=== PATIENT | male | born 1990 | race Caucasian/White ===

== ENCOUNTER → 2017-11-12 09:47 | Outpatient (CLI) | payer BC, MEDICAID, SELFPAY ==
--- NOTE | 2017-11-12 09:50 | US_ITS ---
STUDY: ABDOMINAL ULTRASOUND - RIGHT UPPER QUADRANT REASON FOR VISIT: Male, 27 years old. Right upper quadrant pain. TECHNIQUE: Ultrasound evaluation of the right upper quadrant was performed with real-time and static kim-scale imaging. TECHNICAL QUALITY: Adequate. COMPARISON: None. FINDINGS: Liver: The liver measures 11.4 cm. There is normal echogenicity of the liver. The bile ducts are within normal limits. There is hepatic color flow. The direction of portal flow is hepatopetal. There is no demonstrated mass lesion. Gallbladder: Normal distended gallbladder. The gallbladder wall measures 1.0 mm. There is a negative sonographic Yen's sign. There is no pericholecystic fluid. There are no gallstones. Common Bile Duct (C.B.D.): The common bile duct measures 2.0 mm. Pancreas: Normal size of the head, body and tail of the pancreas. There is normal echogenicity of the pancreas. There is no demonstrated pancreatic mass or cyst. Right Kidney: Normal size of the right kidney. The right kidney measures 10.4 cm x 5.0 cm x 3.9 cm. Normal renal cortex. The right cortex measures 1.2 cm. There is no demonstrated renal mass or cyst. There is no right hydronephrosis. US/Gallbladder IMPRESSION: Normal right upper quadrant ultrasound examination. Electronically Signed: Harrison Flowers MD at 14:43 EDT Tel [phone], Service support ,
== END ==
LOC: US 09:49
PROVIDERS: Family Provider Family Medicine; PCP Family Medicine; Visit Provider Surgery
DX: R10.11 Right upper quadrant pain (principal)
CPT/HCPCS: 76705

== ENCOUNTER 2018-05-15 09:12 | Day surgery (SDC) | payer BC, SELFPAY ==
--- NOTE | 2018-05-15 | GASB_PTH ---
PATIENT: RIVKA ESPINAL LOC: EN U#:[id number] AGE/SX: 27/M ROOM: RE05/15/[address]: Dr. Tanner Curry MD : 1990 BED: DIS: 05/15/2018 SPEC #: [id number] RECD: 05/15/18 12:44 STATUS: SO LAUREN #: [id number] JEANETH: 05/15/18 00:[address]: Tanner Curry DEPT: SURGICAL PATHOLOGY RECD BY: Tu Damico ENTERED: 05/15/18 12:44 SP TYPE: Gastric Bx OTHR DR: Dr. Oskar Barajas MD Tissues: Gastric mucous membrane Procedures: Surgery Specimen Level IV HEADER OPERATION: EGD ([facility] [place]) PRE-OP DIAGNOSIS: Abdominal pain TISSUE SUBMITTED: Antral biopsy for H. pylori and pathology MICROSCOPIC DIAGNOSIS Gastric antrum, biopsy: Chronic gastritis. AM:margo 05/18/18 COMMENT The results of immunohistochemistry for Helicobacter pylori will be reported separately ([id number]). MICROSCOPIC DESCRIPTION Slides are reviewed. GROSS DESCRIPTION Received in fixative is one container labeled with the patient's name and designated antral biopsy. The specimen consists of one irregular fragment of light stanley soft tissue that measures 0.5 x 0.3 x 0.1 cm. The specimen is totally submitted in one cassette. / AM:margo 05/15/18 TC:3 CPT: 64189
[2018-05-15 09:29] VITALS: BP 119/68; PULSE 92; RESP 18; TEMP 36.9; O2SAT 100; BMI 19.6
--- NOTE | 2018-05-15 10:30 | IMM_PTH ---
PATIENT: RIVKA ESPINAL LOC: EN U#:[id number] AGE/SX: 27/M ROOM: RE05/15/[address]: Dr. Tanner Curry MD : 1990 BED: DIS: 05/15/2018 SPEC #: [id number] RECD: 05/15/18 11:16 STATUS: SO RERashel #: [id number] JEANETH: 05/15/18 10:[address]: Tanner Curry DEPT: IMMUNOHISTOCHEMISTRY RECD BY: Kera Hernandes ENTERED: 05/15/18 11:16 SP TYPE: IMMUNO OTHR DR: Dr. Oskar Barajas MD Tissues: Stomach, NOS Procedures: H Pylori (initial) PHYSICIAN & INSTITUTION [place] [id number] SPECIMEN INFORMATION: Tissue Source: Antral biopsy Clinical Info: Abdominal pain Specimen Number: [id number] CPT code: 88928 METHODOLOGY: Deparaffinized sections of prefer/formalin-fixed tissue or PAP/DQ stained slides are incubated with monoclonal/polyclonal antibodies/oligonucleotide probes. Localization is made via biotin free immunoperoxidase method. Appropriate controls are performed and reacted as expected. Results on target cell population are indicated in the following table: RESULTS: ANTIBODY / CLONE RESULT H Pylori (polyclonal) negative These tests were developed and their performance characteristics determined by [facility]. They may not have been cleared or approved by the U.S. Food and Drug Administration. The FDA has determined that such clearance or approval is not necessary. INTERPRETATION: Antral biopsy: Negative for Helicobacter pylori organisms. AM:margo 05/18/18
[2018-05-15 10:33] VITALS: BP 110/70; BP 119/68; PULSE 91; RESP 18; TEMP 37.2; O2SAT 98
--- NOTE | 2018-05-15 10:36 | OP.ENDO_ITS ---
Patient Name: Woody Farris Procedure Date: 05/15/2018 10:19 AM Date of : 1990 Age: 27 Procedure: Upper GI endoscopy Indications: Epigastric abdominal pain, Heartburn Providers: Tanner Curry MD Medicines: Monitored Anesthesia Care Patient Profile: This is a 27 year old male. Refer to note in patient chart for documentation of history and physical. Complications: No immediate complications. Procedure: Pre-Anesthesia Assessment: - Prior to the procedure, a History and Physical was performed, and patient medications and allergies were reviewed. The patient's tolerance of previous anesthesia was also reviewed. The risks and benefits of the procedure and the sedation options and risks were discussed with the patient. All questions were answered, and informed consent was obtained. Prior Anticoagulants: The patient has taken no previous anticoagulant or antiplatelet agents. After reviewing the risks and benefits, the patient was deemed in satisfactory condition to undergo the procedure. After obtaining informed consent, the endoscope was passed under direct vision. Throughout the procedure, the patient's blood pressure, pulse, and oxygen saturations were monitored continuously. The gastroscope was introduced through the mouth, and advanced to the second part of duodenum. The upper GI endoscopy was accomplished without difficulty. The patient tolerated the procedure well. Scope In: 10:24:34 AM Scope Out: 10:29:19 AM Total Procedure Duration Time 0 hours 4 minutes 45 seconds Findings: Diffuse erythematous mucosa without bleeding was found in the stomach. Biopsies were taken with a cold forceps for Helicobacter pylori testing. The esophagus was normal. The examined duodenum was normal. The exam was otherwise without abnormality. Impression: - Erythematous mucosa in the stomach. Biopsied. - Normal esophagus. - Normal examined duodenum. - The examination was otherwise normal. Recommendation: - Await pathology results. - Discharge patient to home. - Resume previous diet. - Continue present medications. - Return to my office in 1 month. Procedure Code(s): --- Professional --- 74308, Esophagogastroduodenoscopy, flexible, transoral; with biopsy, single or multiple Diagnosis Code(s): --- Professional --- K31.89, Other diseases of stomach and duodenum R10.13, Epigastric pain R12, Heartburn CPT copyright 2017 [employer]. All rights reserved. The codes documented in this report are preliminary and upon retrieval specialist review may be revised to meet current compliance requirements. Tanner Curry MD 05/15/2018 10:35:56 AM This report has been signed electronically. Number of Addenda: 0 Note Initiated On: 05/15/2018 10:19 AM
[2018-05-15 10:38] VITALS: BP 113/65; BP 119/68; PULSE 92; RESP 16; O2SAT 100
[2018-05-15 10:43] VITALS: BP 119/68; BP 120/76; PULSE 90; RESP 16; O2SAT 100
[2018-05-15 10:48] VITALS: BP 119/68; BP 123/70; PULSE 99; RESP 16; TEMP 36.8; O2SAT 100
[2018-05-15 11:17] VITALS: BP 119/68
== END 2018-05-15 11:18 | disposition home or self-care (01) ==
LOC: EN 09:13 → AC 09:20
PROVIDERS: Family Provider Family Medicine; PCP Family Medicine; Referring Provider Surgery; Visit Provider Surgery
PROC: 0DJ08ZZ Inspection of Upper Intestinal Tract, Via Natural or Artificial Opening Endoscopic (ICD-10-PCS; CPT 43235; principal; 2018-05-15 10:25)
DX: K29.50 Unspecified chronic gastritis without bleeding (principal); K92.1 Melena; K21.9 Gastro-esophageal reflux disease without esophagitis; F31.9 Bipolar disorder, unspecified; F98.8 Other specified behavioral and emotional disorders with onset usually occurring in childhood and adolescence; G40.909 Epilepsy, unspecified, not intractable, without status epilepticus; Z79.899 Other long term (current) drug therapy; F17.200 Nicotine dependence, unspecified, uncomplicated
CPT/HCPCS: 43239; 88305; 88342; J7120

== ENCOUNTER → 2018-06-11 17:05 | Outpatient (CLI) | payer BC, SELFPAY ==
[2018-05-15 09:29] VITALS: BMI 19.6
[2018-06-11 17:30] LABS: Amphetamine Urine VISTA POSITIVE (<1000 ng/mL); Barbiturate Urine VISTA NEGATIVE (< 200 ng/mL); Benzodiazepine Urine VISTA NEGATIVE (< 200 ng/mL); Cocaine Urine VISTA NEGATIVE (< 300 ng/mL); Ecstacy Urine VISTA NEGATIVE (< 500 ng/mL); Methadone Urine VISTA NEGATIVE (< 300 ng/mL); PCP Urine VISTA NEGATIVE (< 25 ng/mL); THC Urine VISTA NEGATIVE (< 50 ng/mL); Vista UDS pH Range 6
== END ==
PROVIDERS: Family Provider Family Medicine; PCP Family Medicine; Referring Provider Psychiatry & Neurology Psychiatry; Visit Provider Psychiatry & Neurology Psychiatry
DX: Z79.899 Other long term (current) drug therapy (principal); F19.10 Other psychoactive substance abuse, uncomplicated
CPT/HCPCS: 80307

== ENCOUNTER → 2018-10-26 | Outpatient (CLI) | payer BC, SELFPAY | END | disposition home or self-care (01) | PROVIDERS: Family Provider Family Medicine; PCP Family Medicine; Referring Provider Otolaryngology; Visit Provider Otolaryngology | DX: J02.9 Acute pharyngitis, unspecified (principal); J03.90 Acute tonsillitis, unspecified | CPT/HCPCS: 87070 ==

== ENCOUNTER 2019-01-25 09:00 | Outpatient (RCR) | payer BC, SELFPAY ==
--- NOTE | 2019-01-25 10:07 | BH.SGPN.GN ---
Behaviors/Verbalizations/Mental Status: []Client alert and oriented, neatly dressed and groomed. Eye contact good. Motor activity appropriate. Speech within normal limits. Affect congruent, mood anxious. Thoughts linear, logical, no signs of hallucinations or delusions. Client Response/Progress/Benefit: []Client active participant during group discussion AEB client contributing to discussion. Client commented on the quote and shared ?we expect our supports to know what we need and how we feel and then get upset when they don?t.? Client reported he has lost supports in his life, but stated it is also possible to build back support. Client helped group brainstorm potential consequences of not having a support system. Group identified benefits of social support as building trust, less anxiety, less loneliness, different perspective, sense of purpose, resources, hope, and accountability. Client shared ?support goes two ways? and that it can be just as beneficial to be someone else?s support. Client was engaged during the group activity and was providing positive encouragement. Appeared to benefit from gaining awareness of barriers that keep people from seeking social support as well as identifying the benefits of increasing support. Client?s first day in IOP. Will continue tx to prevent decompensation of mood symptoms, increase healthy coping skills, and maintain safety.
--- NOTE | 2019-01-25 11:08 | BH.SGPN.GN ---
Behaviors/Verbalizations/Mental Status: [Pt alert and oriented, eye contact good, at times intense, casually dressed, motor activity appropriate, speech normal rate and tone, mood euthymic, congruent affect, thoughts linear and intact, no evidence of delusions or hallucinations.] Client Response/Progress/Benefit: [Client active participant AEB client contributing to discussion, listened attentively to others, asked questions, and took notes throughout. Client worked with the group to make connections between barriers faced in the challenge activity and strategies for managing these barriers with utilizing social supports in daily life. Client reflected that a personal barrier in using current supports is pushing people away out of guilt related to his own behaviors during past experiences. Client contributed to discussion about the different types of support and benefits different types of support can provide. Client worked with the group to identify strategies for improving development of new supports and better utilization of current supports. Client identified he would like to improve professional relationships by voicing his concerns, increasing willingness to ask for help, and improving professional boundaries because he would be able to increase ability to maintain balance and ability to develop new relationships as a result. Client seemed to benefit from identifying a type of support he would like to improve upon and creating actionable steps to promote follow-through. Client to continue IOP level of care to prevent decompensation, increase use of healthy supports, and improve mood management skills.] Narrative Note: []
--- NOTE | 2019-01-25 11:49 | BH.COMM ---
Communication Note - Communication with Client Communication Note: Completed intake paperwork with client today. Completed the [place] Suicide Severity Scale (CSSR-S) Lifetime Recent to assess for suicidal risk. Client denies history of any suicide attempts. Client reported he does have a history of impulsive behavior which resulted in client hurting himself several years ago. Client reported three years ago he took a kitchen knife and cut himself. Client denied any intent to kill himself at the time and report ?when I realized what I did I freaked out.? Client denies any other self-injurious behaviors. Client denies any passive wishes of or suicidal ideations in the past month. Client reported he has had suicidal thoughts in his lifetime, but not since he was 15 years-old. Per the CSSR-S client presents as a low risk for suicide, but he does report a history of impulsive behavior. Client's suicidal lethality will be continued to monitored throughout the program. Client denies access to any weapons. Client feels able to maintain safety, agreeable to call 911 or go to nearest emergency room if feels unable to maintain safety.
--- NOTE | 2019-01-26 09:02 | BH.SGPN.GN ---
Behaviors/Verbalizations/Mental Status: []Client alert and oriented, neatly dressed and groomed. Eye contact good. Motor activity appropriate. Speech within normal limits. Affect congruent, mood dysthymic, anxious. Thoughts linear, logical, no signs of hallucinations or delusions. Reviewed client?s symptom tracker, no risk for suicidal ideation, plan, or intent as of 01/26/19. Client Response/Progress/Benefit: []Client responded well to session, receptive to feedback and connecting with peers. Client reports feeling ?down but a bit better? today. Client stated his anxiety is his biggest stressor and client shared he worries about being able to manage his anxiety. Client asked the group how others coped with anxious thoughts and received various strategies to try. Client reported he also recognizes he self-sabotages and he hopes that he can learn to reduce these behaviors while in IOP. Client?s mental health wins today include getting to group early and not letting the bad weather cause client to have a ?terrible? mood this morning. Client shared it took him a long time to seek intensive mental health help, and client self-reported being thankful for finally deciding to come. Appeared to benefit from supportive feedback and ideas on coping skills. Will continue IOP tx to prevent decompensation and improve mood symptoms.
--- NOTE | 2019-01-26 10:10 | BH.SGPN.GN ---
Behaviors/Verbalizations/Mental Status: [] Eye contact is good. Motor activity is appropriate. Appearance is casual. Speech is Appropriate. Mood is anxious. Affect is congruent. Thoughts are linear and logical. No evidence of psychosis. Client Response/Progress/Benefit: [] Pt was an active participant in group activity and discussion. Provided insight on the quote of the day. Worked with peers to come up with a definition for coping which was how we deal with problems that we encounter. Group noted that coping skills can be healthy and unhealthy. Group worked together to identify unhealthy coping skills which included; substance abuse, avoiding, isolating, lashing out, self-harm, over-thinking, spending money, eating, and escaping reality through TV/games. Group began to identify ways to break the cycle of unhealthy coping skills which included; awareness, addressing issues, and learning healthy ways to cope. Pt was an active participant in his small group. Narrative Note: []
--- NOTE | 2019-01-26 11:15 | BH.SGPN.GN ---
Behaviors/Verbalizations/Mental Status: []Pt alert and oriented, eye contact good, casually dressed, motor activity appropriate, speech normal rate and tone, mood depressed, constricted affect, thoughts linear and intact, no evidence of delusions or hallucinations. Client Response/Progress/Benefit: []Client listened attentively to peers and contributed thoughts during discussion. Client appeared to connect with the activity from second group and helped the group identify benefits of having a strong foundation of internal and external coping skills. Client helped the group discuss the different categories of coping skills and provided examples. Client agreed with peers it's important to use variety of coping skills. Client created a coping skills ?menu? from the five categories of coping skills. Client selected music, thought challenge and grounding as coping skills to try. Client appeared to benefit from increasing his repertoire of healthy coping skills. Progress noted in client?s increased self-awareness of his maladaptive coping. Will continue IOP to stabilize moods, increase use of healthy coping skills and prevent decompensation. Narrative Note: []
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
--- NOTE | 2019-01-27 13:05 | BH.DR.ITP ---
Initial Treatment Plan - Patient Information Visit Information: ADMISSION DATE: EXPECTED LOS: 4-6 weeks - Problems/Symptoms Problem #1:: Anxiety Symptom:: Worry, rumination Problem #2:: Irritability/anger Symptom:: impulsive, easily angered
--- NOTE | 2019-01-28 12:25 | BH.NOTE ---
BH: Inpatient Note - Notes Behavioral Health Inpatient Note: Per written order from Dr. James, the following prescription was called into [facility] pharmacy in [place], [place]: Lamictal 150mg PO daily, #90, NO refill Eran Muller, MSN, RN
--- NOTE | 2019-01-29 09:03 | BH.SGPN.GN ---
Behaviors/Verbalizations/Mental Status: []Client alert and oriented, casually dressed and groomed. Eye contact good. Motor activity appropriate. Speech within normal limits. Affect congruent, mood anxious. Thoughts linear, logical, no signs of hallucinations or delusions. Reviewed client?s symptom tracker, no risk for suicidal ideation, plan, or intent as of 01/29/19. Client Response/Progress/Benefit: []Client responded well to session, connecting with peers and receptive to feedback. Client reported he is feeling ?half awake? today but shared ?I?m not going to let that ruin my day.? Client shared coming to group this week has given client ?all this positive energy.? Client reported this makes client want to make positive changes and has impacted his perspective on progress. Client shared he struggles at times with expecting too much from himself too quickly, but the group helped client by recommended use of self-compassion. Client shared he was able to prevent himself from getting mad at his which was another mental health win this morning. Appeared to benefit from connecting with peers and normalizing his mental health symptoms. Will continue IOP tx to prevent decompensation of symptoms and improve mood stability.
--- NOTE | 2019-01-29 10:17 | BH.SGPN.GN ---
Behaviors/Verbalizations/Mental Status: []Client alert and oriented, casually dressed and groomed. Eye contact fair. Motor activity appropriate. Speech within normal limits. Affect congruent to topic being discussed, mood dysthymic. Thoughts linear, logical, no signs of hallucinations or delusions. Client Response/Progress/Benefit: []Client responded well to session, attentive and participating in small group discussion. Group identified the benefits to setting boundaries as well as the consequences of not setting healthy boundaries. Client reported sometimes he doesn't set boundaries because he is exhausted so doesn't have the energy or motivation. Client recognizes not setting boundaries negatively impacts his mental health. Client engaged during discussion of the different types of boundaries and engaged in the self-assessment activity. Client able to recognize his own mental health suffers when he does not set boundaries. Client seemed to benefit from increased awareness how poor boundaries can negatively impact mental health. Client to continue IOP tx to continue use of healthy coping skills, prevent decompensation, and improve emotional regulation skills. Narrative Note: []
--- NOTE | 2019-01-29 11:03 | BH.MTP_ITS ---
[facility] - Patient Information Program Physician:: Dr. Mecca Ng Primary Therapist:: BRYN Oquendo - Psychiatric Diagnoses Psychiatric Diagnoses:: ADHD (F 90.2), Bipolar, NOS (F31.9); generalized anxiety disorder,; history of alcohol use disorder in full remission for 3 years. Diagnosis Code(s):: F31.9 - Estimated LOS Estimated LOS (in weeks):: 6 Problem/Goal #1 - Problem/Goal #1 Stated Goal:: Client will reduce anxiety due to Generalized Anxiety Disorder through IOP services. Description of Barriers: Client reports history of trauma and difficulties in managing emotions that continues to impact client. Reports from a young age he has learned to suppress his feelings until point of crisis which often results in anger outbursts via verbal outbursts, property damage, and arguments with supports. Client reports his relationship with his has been strained as a result of poor emotion regulation and that they are currently as a result. Indicated that the recent loss of a child to SIDs has had significant impact on his mental health and relationships with supports. Pt reports he is currently living with his mother and stepfather which has been a stressor as he is unable to spend as much time with his children and is commuting further to work. Reports hx of problematic drinking behaviors but has not engaged in such behaviors since prior to IOP admission. Current stressors including; financial stress, lack of social support, family stress, hx of impulsivity, feelings of hopelessness, worthlessness, difficulties managing his emotions, and lack of concentration. Client reports limited awareness of warning signs and triggers. Client endorses numerous distorted thoughts that reinforce mental health symptoms and cause interpersonal relationship issues. Functional Impact: Client is a 28-year-old male with a history of Bipolar, NOS, anxiety, anger management problems, and alcohol use disorder. Client was referred to [facility] by family due to worsening mood symptoms resulting in erratic behaviors, impulsiveness, and increased irritability over the past month. Due to intensity of mood symptoms, pt has been ?kicked out of his house? following an argument with his on 01/17/19 and is now living with his parents. Dayna armstrong identified worsening mood symptoms in connection to ongoing grief following the loss of his son in June 2018 to SIDs. Reports hx of aime and depression, though denies any recent episodes. Reports increased reliance on alcohol as a means of coping but recognized this was beginning to become problematic and has been sober for several weeks. Client currently endorses a depressed mood, lack of energy, lack of concentration, lack of motivation, avoidance behaviors, emotional dysregulation, irritability and decreased sleep. Client's symptoms are interfering with his social, occupation, and familial functioning. Goal Relevant Strengths/Supports: Client presents as a kind, intelligent, and motivated to improve his ability to understand and manage intense emotions. Cl ient has shown ability to bounce back from adversity in the past which presents as a protective factor for treatment. Client has strong family support from his parents. Client has been in mental health treatment before and reported it was helpful but that he was not motivated to apply skills learned at the time however feels more motivated to do so now. - Objectives Objective #1 Stated Objective: Client will identify 2-3 anxiety and stress related triggers and 2 healthy coping skills to manage symptoms as shown by decreased DSM-5 cross-cutting score for anxiety. Interventions: Therapist will help client increase awareness of anxiety and stress triggers and educate client on ways stress and anxiety impact overall health. Therapist will teach client various heathy coping skills to manage triggers and prevent further escalation of symptoms. Therapist will assist client in identifying warning signs, triggers, and maladaptive coping skills. Therapist will utilize self-coaching, calming skills, and other CBT techniques to promote anxiety management. Therapist will discuss the benefit of communication and self-awareness on improving anxiety management. Discharge Criteria: Client will have accomplished this goal when can report at least 2 triggers for anxiety and state using 2 healthy strategies to manage symptoms. Additionally, client will have accomplished this goal when her DSM-5 cross-cutting scores show a decrease in anxiety. Target Date: 03/08/19 Review Date: 03/01/19 Problem/Goal #2 - Problem/Goal #2 Stated Goal:: Client will improve mood management and reduce impulsive behaviors, feelings of hopelessness, and anger outbursts due to Bipolar Disorder through Intensive Outpatient Program. Description of Barriers: Client reports history of trauma and difficulties in managing emotions that continues to impact client. Reports from a young age he has learned to suppress his feelings until point of crisis which often results in anger outbursts via verbal outbursts, property damage, and arguments with supports. Client reports his relationship with his has been strained as a result of poor emotion regulation and that they are currently as a result. Indicated that the recent loss of a child to SIDs has had significant impact on his mental health and relationships with supports. Pt reports he is currently living with his mother and stepfather which has been a stressor as he is unable to spend as much time with his children and is commuting further to work. Reports hx of problematic drinking behaviors but has not engaged in such behaviors since prior to IOP admission. Current stressors including; financial stress, lack of social support, family stress, hx of impulsivity, feelings of hopelessness, worthlessness, difficulties managing his emotions, and lack of concentration. Client reports limited awareness of warning signs and triggers. Client endorses numerous distorted thoughts that reinforce mental health symptoms and cause interpersonal relationship issues. Functional Impact: Client is a 28-year-old male with a history of Bipolar, NOS, anxiety, anger management problems, and alcohol use disorder. Client was referred to [facility] by family due to worsening mood symptoms resulting in erratic behaviors, impulsiveness, and increased irritability over the past month. Due to intensity of mood symptoms, pt has been ?kicked out of his house? following an argument with his on 01/17/19 and is now living with his parents. Additionally identified worsening mood symptoms in connection to ongoing grief following the loss of his son in June 2018 to SIDs. Reports hx of aime and depression, though denies any recent episodes. Reports increased reliance on alcohol as a means of coping but recognized this was beginning to become problematic and has been sober for several weeks. Client currently endorses a depressed mood, lack of energy, lack of concentration, lack of motivation, avoidance behaviors, emotional dysregulation, irritability and decreased sleep. Client's symptoms are interfering with his social, occupation, and familial functioning. Goal Relevant Strengths/Supports: Client presents as a kind, intelligent, and motivated to improve his ability to understand and manage intense emotions. Client has shown ability to bounce back from adversity in the past which presents as a protective factor for treatment. Client has strong family support from his parents. Client has been in mental health treatment before and reported it was helpful but that he was not motivated to apply skills learned at the time however feels more motivated to do so now. - Objectives Objective #1 Stated Objective: Client will identify his specific physical and emotional warning signs and triggers for anger and learn at least 2-3 healthy ways to calm and manage anger, as shown by reduced DSM-5 scores. Interventions: Therapist will provide sychoeducation on anger via worksheets, educational videos, and individual sessions to increase pt understanding of underlying factors contributing to anger as well as warning signs and triggers commonly associated with irritability. Through individual therapy and group work will help client explore different anger management strategies and tools for increasing self-regulation. Discharge Criteria: Pt will have reached goal when able to identify 2-3 personal warning signs, triggers, and factors impacting ability to regulate emotions and report reduced anger sx due to implementing 2-3 calming and emotion regulation skills. Progress will be shown by reduction in irritability on DSM-5 scores. Target Date: 03/08/19 Review Date: 02/22/19 Objective #2 Stated Objective: Client will learn and implement 2-3 effective communication skills during times of conflict to empower client to communicate thoughts and feelings rather than supress emotions or escalate to crisis. Interventions: Therapist will teach client effective communication and conflict resolution skills and will provide homework for client to practice communication skills outside of sessions. Discharge Criteria: Client will have achieved this objective when reports experiencing increased ability to communicate effectively with supports during times of disagreement or conflict without shutting down or escalating to point of crisis. Target Date: 03/08/19 Review Date: 02/22/19
--- NOTE | 2019-01-29 11:22 | BH.SGPN.GN ---
Behaviors/Verbalizations/Mental Status: [Client alert and oriented, casual dress, hygiene appropriate. Eye contact good. Motor activity appropriate. Speech within normal limits. Affect congruent, mood euthymic. Thoughts linear, logical, no signs of hallucinations or delusions. ] Client Response/Progress/Benefit: [Pt responded well to session, active participant and willing to provide insight throughout. Pt did well to engage in the boundary self-assessment activity and worked with group to further process. Pt discussed that he has been becoming much more aware of how fear of being out of control and focusing on past guilt has impacted personal ability to set boundaries in the workplace. Pt appeared to benefit from group discussion on strategies for further improving personal boundaries. Identified wanting to improve his ability to set and maintain healthy emotional boundaries, specifically in regard to being able to respect others needs and ask for help rather than shut down when upset. Progress noted in pt ability to identify impact of current boundaries on mental health progress and relationships. Client recommended to continue IOP treatment in order to maintain gains made, improve mood management, and continue to promote healthy change behaviors.] Narrative Note: []
--- NOTE | 2019-02-01 09:03 | BH.SGPN.GN ---
Behaviors/Verbalizations/Mental Status: [Eye contact is good, at times appearing intense. Motor activity is appropriate. Appearance is casual. Speech is Appropriate, at times rambling. Mood is depressed and anxious. Affect is congruent. Thoughts are linear and logical. No evidence of psychosis. Reviewed daily check in sheet and no reports of suicidal ideations or intent.] Client Response/Progress/Benefit: [Pt was receptive of session, actively listening throughout and providing input and supportive feedback throughout. Emotion for today is ?anxious? and he indicated that this was due to realizing how negative he can be at times and worrying about the relationship with his as they are currently seperated. Pt appeared to benefit from the supportive feedback and fellow participants indicating relating to pt?s difficulties in communication in his relationship. Pt shared that despite current anxiety, he has been able to experience some mental health wins. Identified current wins as: getting out of the house and spending quality time with his kids at the park over the weekend. Additional win identified as making small steps towards challenging unrealistic expectations of himself and his children. Noted that he had allowed them to play at the park without trying to control the situation. Indicated this had been a positive experience and increased his overall confidence in his ability to make progress. Pt displaying progress in levels of engagement and willingness to actively practice utilizing anxiety management skills outside tx environment. Recommended continued tx to prevent decompensation, continue to increase emotion regulation, and further improve anxiety and anger management.] Narrative Note: []
--- NOTE | 2019-02-01 10:20 | BH.SGPN.GN ---
Behaviors/Verbalizations/Mental Status: [] Eye contact is good. Motor activity is appropriate. Appearance is casual. Speech is Appropriate. Mood is anxious. Affect is congruent. Thoughts are linear and logical. No evidence of psychosis Client Response/Progress/Benefit: [] Pt was an active participant in group discussion and activity. Engaged and provided insight on today's quote. Worked with group to define pitfalls in mental health which group identified were; hidden or unsuspected obstacles, emotional traps, when we defeat ourselves, and unforeseen obstacles which impact progress. Group discussed the impacts of pitfalls which can cause one to; give up, revert back to unhealthy coping, isolate, define oneself as a failure. Group briefly discussed the emotions and pitfalls which occurred during the activity noting that it caused anxiety, anger, fear, and at times they wanted to give up. Pt stated that it was hard for me to calm down and focus during the activity causing him to rely on others. Pt was able to relate the activity to his own MH and emotions when he has encounter a pitfall which was beneficial in in terms of insight and awareness. Narrative Note: []
--- NOTE | 2019-02-01 11:21 | BH.SGPN.GN ---
Behaviors/Verbalizations/Mental Status: []Client alert and oriented, casually dressed and groomed. Eye contact intense. Motor activity appropriate. Speech tangential at times. Affect congruent, mood anxious. Thoughts linear, logical, no signs of hallucinations or delusions. Client Response/Progress/Benefit: []Client receptive of session, attentive and providing positive contributions. Client helped group process the activity and how it connects to pitfalls in real life. Client completed a worksheet where he identified personal pitfalls impacting mental health progress. Identified pitfalls as: complaining instead of ?finding the silver lining,? feeling lost, avoiding, lashing out, and negative self-talk. Client recognized that in order to become less vulnerable to pitfalls it takes self-awareness and healthy coping skills. Client reported he wants to work on reminding himself that there are better times ahead to help client cope with personal pitfalls. Benefited from identifying personal pitfalls and strategies to overcome these pitfalls. Progress noted as client reports increased self-awareness, but he continues to struggle with mood instability and symptom management. Will continue IOP tx to prevent decompensation and increase healthy coping skills Narrative Note: []
--- NOTE | 2019-02-02 10:08 | BH.SGPN.GN ---
Behaviors/Verbalizations/Mental Status: []Client alert and oriented, neatly dressed and groomed. Eye contact intense. Motor activity appropriate. Speech within normal limits. Affect congruent, mood euthymic. Thoughts linear, logical, no signs of hallucinations or delusions. Client Response/Progress/Benefit: []Client was an active participant and provided good insight to discussion. Client appeared to connect with the quote and reported he has been challenging himself to see the small steps in his treatment. Group defined goals and identified the benefits of developing goals which included; improving self-confidence, gaining a sense of accomplishment, gaining a sense of purpose, increased motivated/productivity, and better mental health. Client reported he tends to expect too much from himself when setting goals, which ends up being harmful. Group also identified barriers to setting and accomplishing goals which include; fear, unrealistic expectations, lack of follow through, and not knowing where to start. Attentive during education on developing SMART goals. Benefited from increasing awareness of goal-setting methods and practicing goal setting. Progress noted as shown by client?s report of increased self-awareness. Will continue IOP tx to promote mood stability, reduce anger, and learn healthy coping skills.? Narrative Note: []
--- NOTE | 2019-02-02 11:13 | BH.SGPN.GN ---
Behaviors/Verbalizations/Mental Status: [Client alert and oriented, casually dressed and appropriately groomed. Eye contact good. Motor activity appropriate. Speech within normal limits. Affect congruent, mood euthymic. Thoughts linear, logical, no signs of hallucinations or delusions. ] Client Response/Progress/Benefit: [Pt attentive throughout and actively participated in discussion regarding SMART goal setting AEB providing input, giving supportive feedback, and taking notes throughout. Pt engaged in creating own mental health SMART goal. Identified goal as: Become a more positive person by increasing understanding and management of emotions through daily mental health check-in?s and review of skills learned in IOP group. Pt reported this goal will benefit him by improving positive outlook and decrease self-deprecation. Pt identified potential barriers to accomplishing goal to include: negative thinking, avoiding emotions, isolating during times of increased stress, low self-worth, and unrealistic expectations of self/others. Pt reported she will overcome barriers by ?reminding self to stop and think of positives in life? ?expressing feelings when tempted to avoid them?, ?push myself to deal with issues when they happen rather than avoid?, ?Remember to look at the progress I?ve mad and am making?, and ?Be sure to understand that everyone, including myself, is human. Mistakes will happen and it isn?t that big of a deal??. Pt seemed to benefit from identifying a SMART goal and coming up with strategies to overcome potential barriers. Progress noted in pt ability to create a small relevant goal aimed at improving mental health symptoms and challenging negative perspective of self. Pt to continue IOP to increase healthy coping skills, improve self-esteem, and prevent decompensation.] Narrative Note: []
--- NOTE | 2019-02-02 15:48 | BH.PSA_ITS ---
Source of Information - Presenting Problems/Circumstances Problems, Referral Source, Mental Status, Client: Client is a 28-year-old male with a history of Bipolar, NOS, anxiety, anger management problems, and alcohol use disorder. Client was referred to [facility] by family due to worsening mood symptoms resulting in erratic behaviors, impulsiveness, and increased irritability over the past month. Due to intensity of mood symptoms, pt has been ?kicked out of his house? following an argument with his on 01/17/19 and is now living with his parents. Psychiatric Presentation - Psych Issues & Need for Admission Psychiatric Issues:: mood swings, impulsivity, anger outbursts, depression, hx of SI and self-harming, anxiety, ruminations, panic Past Psychiatric History - Treatment Hx Treatment History: Has no psychiatric admits. No suicide attempts. In 2016 he made somewhat of a suicidal gesture where he cut his right forearm and he did require stitches but was not hospitalized. His psychiatrist currently is Dr. Manuel for the past few years. He saw Dr. Dickinson before they retired. He was first depressed around age 9 years of age. He was diagnosed with bipolar around age 9 due to his anger as a child. He also was diagnosed with ADHD in first grade and has been on stimulants since. He took an anger management course 1 year ago which helped him. He wants to get counseling during the IOP and after. He has had it off and on in the past. First hospitalization:: Denies Most recent hospitalization:: Denies Medication Trials:: Yes - stimulants, Zoloft, Wellbutrin, Depakote, lithium, Risperdal ECT Therapy:: No Age of first mental health symptoms: Reports first feeling depressed around age 9, first struggled with anger outbursts throughout elementary school Current providers for mental health treatment (counselor, psychiatrist, heel caser, etc.): Non current counselor, His psychiatrist currently is Dr. Manuel for the past few years. He saw Dr. Dickinson before they retired. Development & Family of Origin - Childhood Significant Childhood Events: Patient was born and raised in [place]. He describes his childhood as difficult due to his ADHD and bipolar issues. He has always had anger issues. He denies any verbal, physical or sexual abuse. He describes his parents as loving. They when the patient was 1 years of age but he saw his bio dad regularly. School was hard for him due to his ADHD. He graduated high school but actually did home schooling from ninth grade on and then got a GED. No college. 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 - Family Who currently lives in your home?: Currently estranged from his due to an argument in resulting in client moving in with his parents. Client has regular visitation with his children Describe family composition:: Pt reports his parents when he was 1. He has relationships with both parents. His mother remarried and he has a positive relationship with her and his step-father, He has one full brother who was one year older. He has 2 stepsiblings and one half-brother 6 years younger. He got along with all his siblings. Pt at age 25, his is 3 years younger. They are currently estranged due to pt difficulties in regulating his emotions. They have three children together, 3 years, 22 months, and the youngest in June 2018 at 21-days old of SIDS - Family History Family History: Family History (Last Reviewed 05/06/18 @ 08:42 by Lexie Roth) Brother Asthma Hypertension Grandmother Breast cancer Heart disease Kidney disease Thyroid disorder Mother Thyroid disorder Family Hx of Psychiatric or AOD Problems: He feels his father may have mild bipolar illness but it is undiagnosed. His paternal grandfather was bipolar. His mother has depression and anxiety and takes Lamictal. No suicides in the family. His maternal and paternal grandfathers were both alcoholics and his father may be an alcoholic. [] Ethnicity - Culture Do you identify yourself with any particular cultural, ethnic background, or community?: No - Sexuality Sexual Orientation: Heterosexual Spirituality - Yazidism Do you currently identify with any organized anglican?: None - Beliefs Is there a particular form of support from this community you can use for your recovery?: No Mental Status - Memory Recent Memory: Fair Remote Memory: Fair - Concentration Concentration: Fair - Eye Contact Eye Contact: Good, Stares - Speech Speech: Tangential - Thought Process Thought Process: Logical, Flight of ideas Insight: Fair Judgment: Fair Behavior: Anxious - Orientation Orientation: Time, Person, Place, Situation - Appearance Appearance: Appropriate - Mood Mood: Anxious, Depressed - Affect Affect: Appropriate/calm Suicide Assessment - Suicidal Ideation Have you ever felt like hurting yourself?: Yes Please explain:: hx of self-harm via cutting his forearm Were you using ETOH/drugs at the time?: No Suicidal Intentional Rating Scale (SIRS): Current suicidal thoughts/No plan/Contracts for safety Physician Notification: If Active suicidal thoughts/Will not contract for safety is checked, contact physician and document in the Physician Notification section below. Violent Behavior/Abuse History - Homicidal Ideation Do you have any homicidal thoughts? If so, explain:: No Is there a known potential victim? If yes, who:: No - Abuse Have you ever been abused?: No - Life Events Are there any other significant life events?: - loss of his infant son last June due to SIDS, Hardships - relationship tension, resulting in pt moving in with his mother and stepfather, limited visitation with his children as a result - Safety Do you ever feel threatened in your home? If yes, describe:: No Adult Social History - Age 17 to Present Describe your current support system:: Pt's is a support though the marriage is tense, his mother and stepfather are also significant supports Substance Use - Substance Substance Use Type: Alcohol - He has a history of alcohol use disorder from age 20 to age 25. He stopped using alcohol about 3 to 4 years ago. He does describe feeling some withdrawal symptoms in the past from alcohol withdrawal. 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 Service - Service Have you ever been in the ?: No Legal History - Records Have you had any past legal charges?: Yes Do you have any current legal charges?: No Have you ever been incarcerated? If yes, describe:: Yes - Has one arrest for domestic violence. Current probation for this - Court Orders Have you had any past court orders for psychiatric treatment?: No Do you have a present court order for psychiatric treatment?: No Problem Checklist - Current Problem Areas Problem List: Depressed mood/sad, Bereavement, Anxiety, Anger/aggression, Inattention, Impulsivity, Mood swings/hyperactivity Discharge Planning Needs - Anticipated Follow-Up Mental Health Center (Name/Phone Number):: None current, will be connected prior to treatment D/C Private Therapist/Psychiatrist:: Dr. Manuel for the past few years Family and Caregiver Contacts:: Mother Release of Information Signed:: Yes Diagnoses - Diagnoses Diagnosis #1:: ADHD Diagnosis #2:: Bipolar, NOS (F31.9) Diagnosis #3:: Generalized Anxiety Disorder Diagnosis #4:: Hx of Alcohol use disorder, in remission Interpretive Summary - Interpretive Summary Interpretive Summary: Client is a 28-year-old male with a history of Bipolar, NOS, anxiety, anger management problems, and alcohol use disorder. Client was referred to IOP by family due to worsening mood symptoms resulting in erratic behaviors, impulsiveness, and increased irritability over the past month. Due to intensity of mood symptoms, pt has been ?kicked out of his house? following an argument with his on 01/17/19 and is now living with his parents. Additionally identified worsening mood symptoms in connection to ongoing grief following the loss of his son in June 2018 to SIDs. Reports hx of aime and depression, though denies any recent episodes. Reports increased reliance on alcohol as a means of coping but recognized this was beginning to become problematic and has been sober for several weeks. Client currently endorses a depressed mood, lack of energy, lack of concentration, lack of motivation, avoidance behaviors, emotional dysregulation, irritability and decreased sleep. Client's symptoms are interfering with his social, occupation, and familial functioning. Treatment Plan Recommendations - Recommendations Guidelines: Special needs identified to be included in the development of an individualized treatment plan regarding past psychiatric history and treatment, developmental events, family relationships/events/culture, past and/or current educational, occupational, social, and residential experience, and legal status. Recommendations:: [facility] as the structure, support, education, group and individual therapy will be beneficial to the patient and prevent worsening of his symptoms which could require hospitalization.
--- NOTE | 2019-02-02 18:03 | BH.MDN ---
Multi-Disciplinary Note - Note 30-min Individual Time Started:: 09:32 Date: 02/02/19 Purpose of session/treatment goals addressed:: Purpose of this session was to establish rapport with pt, gather additional information regarding pt current functioning, symptoms, and stressors impacting mental health. Additional purpose was to discuss tx expectations and begin development of treatment goals. Eye Contact:: Good Motor Activity:: Appropriate Appearance:: Casual Speech:: Appropriate, Tangential Mood:: Anxious, Depressed Affect:: Full Thoughts:: Linear, Logical, Racing, No evidence of hallucinations/delusions noted Staff Interventions:: Therapist asked open ended and furthering questions to gather additional information regarding pt's symptoms, current stressors, as well as events leading to IOP admission. Worked with client to explore treatment goals to address in IOP tx. Therapist used strengths perspective to build rapport and help pt identify personal positives and resilience factors. Therapist used empathic responses to provide emotional validation. Applied VA techniques to explore coping strategies that have helped in the past with mental health sx management. Client Response:: Pt open to meeting with this therapist and remained actively engaged throughout session. He reports that his first week in IOP went well and thathe has already begun to learn skills helpful for improving ability to manage mental health sx. Reports feeling hopeful and motivated about treatment. Pt discussed that since beginning the program, he is beginning to better understand how his current thoughts, feelings, and behaviors are impacting his mental health and ability to regulate his emotions. Pt shared that he has been struggling more with his mental health recently, though feels his mood has become somewhat stabilized since beginning new medications last week. Pt discussed hos current stressors which included ongoing grief associated with the unexpected loss of his last June, difficulties in regulating his emotions and poor anger management resulting in recent separation from his , seasonal related depression, and work related stress. Described that the winter holiday season is a trigger for him and that he often ?pushes my emotions down? which is what he has done to cope his whole life until reaching point of crisis and then engages in high risk or impulsive behaviors. Reports hx of receiving counseling off and on his whole life due to anger related issues, however noted ?I never really tried to put effort into it before?. Shared increased willingness to try as he wants to improve relationships in his life as well as how he feels about himself. Pt shared that these factors as well as difficulties in managing symptoms of aime and anger is what led to IOP admission. Identified tx goals as improving emotion regulation skills, increasing communication with supports, improving self-esteem, and identifying healthy means of coping with depression. Risks/Concerns:: No risks or concerns noted. Pt denies any active SI, plan, or intent as of this date 02/02/19. Future oriented and reports his family as major motivation for living. Pt aware of and willing to utilize the local crisis resources should he feel unable to maintain safety at any time. Progress Toward Goals/Plan:: Pt new to IOP tx and this is his 3rd day in program, therefore limited progress currently noted. Reports he is motivated to make improvements for his mental health and relationships with supports. Pt endorses a depressed and anxious mood, negative thinking, anhedonia, guilt, ongoing grief and related PTSD, irritability, and limited supports. Identified goals for treatment as: improve ability to cope with his emotions, specifically that of anger, improve self-esteem, improve emotion regulation skills, and decrease depression. Will continue IOP to prevent decompensation, improve daily functioning, and increase mood stability. Time Stopped:: 10:03
--- NOTE | 2019-02-03 09:10 | BH.SGPN.GN ---
Behaviors/Verbalizations/Mental Status: [] Eye contact is good. Motor activity is appropriate. Appearance is casual. Speech is Appropriate. Mood is anxious. Affect is congruent. Thoughts are linear and logical. No evidence of psychosis. Reviewed daily check in sheet and no reports of suicidal ideations or intent. Client Response/Progress/Benefit: [] Pt participated at times during group discussion. Emotion for today is content. Notes a decrease in energy and motivating recently. Also notes increase in stress at work. Talked at length about these mood changes and possible triggers. Group provided feedback on focusing on coping effectively rather than trying to find causes. Pt notes that he did use some skills at work to decrease his anxiety which helped him prevent his anxiety from getting to a level 10. Benefited from group support, encouragement, and feedback. Will continue in IOP to stabilize mood, prevent decompensation, and improve health coing skills. Narrative Note: []
--- NOTE | 2019-02-03 10:45 | BH.NA_ITS ---
Physical Data - Vital Signs Pulse Rate: 92 Respiratory Rate: 14 Blood Pressure: 112/70 - Height/Weight Height: 1.79 m Weight:: 70.307 kg Weight in Pounds: 155.0 lbs Current Medication Compliance - Medication Compliance Do you take your medication as prescribed?: Yes Do you need assistance with taking medication?: No Have you had side effects from medication?: No Nutritional History - Appetite Nutritional Instructions:: If client shows signs of a swallowing problem, weight change of 10 pounds or more in the last month, or is on a diabetic diet, the physician will review and request a dietitian consult, as appropriate. All unintentional weight loss will be referred to the physician for decision on need for dietitian consult. Describe your appetite:: Good Have you noticed a change in your eating habits lately?: No Functional Assessment - Sleep Pattern Describe any problems with sleeping: Client decribes his sleep as decent, but does have some trouble staying asleep most nights due to restlessness. - Activities Motor Activity:: Functional Sensory/Communication Assess - Hearing Problems Do you have any hearing problems?: Adequate - Communication Problems Do you have difficulty understanding what people are saying?: No Do you have trouble putting your thoughts into words or expressing what you want to say?: No Do people ever have trouble understanding what you say?: No What is your primary language?: Turkish Learning Assessment - Learning Barriers Learning Barriers:: Ready to learn Medical Problems/History - Pain Assessment Do you have acute or chronic pain?: No - Family History Family History: Family History (Last Reviewed 05/06/18 @ 08:42 by Lexie Roth) Brother Asthma Hypertension Grandmother Breast cancer Heart disease Kidney disease Thyroid disorder Mother Thyroid disorder Surgical History - Surgical History Have you had any surgeries? If so, list type and date:: No Substance Abuse - Substance Abuse Please describe substance abuse in the last 30 days:: Rare ETOH use. 0.5ppd cigarette smoker. History of illicit substance use. Mental Status Summary - Mental Status Significant Findings/Observations on Appearance and Mood:: Woody is A&Ox4, cooperative with interview, and makes intense eye contact. He is hyperactive while seated. Casually groomed and dressed. Speech is rapid, of normal volume, and clear. Mild-mod anxiety, mild auphoria. Mood congruent affect. Logical associations. Normal process. Fair knowledge. No symptoms of delusions. Denies hallucinations, SI, and HI. Good concentration and attention. Suicide Assessment - Suicidal Ideation Are you currently or have you been suicidal in the past?: Yes Suicidal Intentional Rating Scale (SIRS): Suicidal thoughts (past) Physician Notification: If Active suicidal thoughts/Will not contract for safety is checked, contact physician and document in the Physician Notification section below. Assault History/Potential - History of Assault Do you have a history of assaulting someone?: No Physician Notification: If yes, notify physician and document notification date and time below. Past Psychiatric History - MH Treatment Hx ECT Therapy Details:: N/A Fall Risk Assessment - Age Age: Less than 60 - Mental Status Mental Status: Willing & able to ask for assistance when needed - Physical Status Physical Status: No problems - Impairments Impairments: None - Elimination Elimination: Continent AND independent - Gait or Balance Gait or Balance: Walks independently - Hx of Falls History of falls in the past 6 months: No known history - Medications/Substances Psychotropics:: Antidepressants Medications/substances used within the past 24 hours or ordered to administer: 1-2 of the medications/substances listed above - Total Score Total Points:: 1 RN Summary of Impressions - Impressions Recommendations: Include psychiatric and medical issues, treatment planning recommendations, and discharge planning needs. Impressions: Psychiatric Issues: bipolar? Impression: General Medical Conditions: GERD Impressions: Discharge Planning Needs: outpatient couselor. PCP: paddy Barajas at [facility] - Level of Care How do the client's current symptoms and functional deficits support need for this level of care?: Woody notes a gradual decline in his mental health since the loss of his son earlier this year to SIDS. He has a great deal of unresolved guilt and grief. Woody endorses low motivation, increased impulsiveness, and irritability. Client has recently been kicked out of the house by his , so housing is a concern. His mental health symptoms have impacted his ability to work and care for himself. Woody has limited support. [facility] will provide social support and skills training to prevent further decompensation and promote gains.
--- NOTE | 2019-02-03 11:15 | BH.SGPN.GN ---
Behaviors/Verbalizations/Mental Status: [] Eye contact is good. Motor activity is appropriate. Appearance is casual. Speech is Appropriate. Mood is anxious. Affect is congruent. Thoughts are linear and logical. No evidence of psychosis. Client Response/Progress/Benefit: [] Pt was an active participant in group discussion and activity. Able to identify obstacles and challenges which are preventing him from achieving his desired reality which included; fear of changes, self-worth, and lack of self-reflection. Active during activity. Pt along with peers identified 7 obstacles during the activity and developed 3 strategies to overcome those 7 obstacles to wellness and desired reality. Group wrote down the strategies and added them to their program binder. Benefited from group by identifying obstacles and solutions to desired reality. Narrative Note: []
--- NOTE | 2019-02-08 09:02 | BH.SGPN.GN ---
Behaviors/Verbalizations/Mental Status: []Client alert and oriented, neatly dressed and groomed. Eye contact good. Motor activity restless. Speech within normal limits- interrupts at times. Affect flat, mood anxious, depressed. Thoughts linear, logical, no signs of hallucinations or delusions. Reviewed client?s symptom tracker, no risk for suicidal ideation, plan, or intent as of 02/08/19. Client Response/Progress/Benefit: []Client responded well to session, attentive and providing supportive statements to peers. Client reports feeling ?proud and sad? today. Client shared he feels sad because he had to take his son to the hospital over the weekend which triggered client?s grief. Client stated he is proud of himself, though because instead of stuffing his emotions he dealt with them in healthier ways. Client shared he has been using deep breathing to keep himself calm which prevented client from getting angry. Client reported he has been learning a lot from IOP which is helping client manage his emotions better. Client shared he has been trying to not beat himself up when he does not cope ?perfectly.? Received supportive statements from peers about self-compassion. Appeared to benefit from reflecting on his generalization of coping skills. Will continue IOP tx to improve mood stability and continue learning healthy coping skills. Narrative Note: []
--- NOTE | 2019-02-08 10:16 | BH.SGPN.GN ---
Behaviors/Verbalizations/Mental Status: []Client alert and oriented, casually dressed and groomed. Eye contact good. Motor activity appropriate. Speech within normal limits. Affect congruent to topic being discussed, mood dysthymic. Thoughts linear, logical, no signs of hallucinations or delusions. Client Response/Progress/Benefit: []Pt responded well to session, attentive and providing input throughout. Pt connected with discussion on different types of anxiety, as well as the difference between ?normal? anxiety and anxiety disorders. When processing quote pt stated he now realizes many of his emotions are based in fear and anxiety, which has led him to make poor decisions. Pt helped the group identify examples of the various ways anxiety manifests and symptoms associated with thoughts, physical symptoms, and safety behaviors. Pt gained awareness of personal physical symptoms which included: tense muscles, clenched jaw, pressure in chest, stomach tightness, and fidgety with hands. Pt identified avoiding anxious situations and seeking reassurance from others as safety behaviors he has engaged in that provide short term relief but increase anxiety over time. Client appeared to benefit from gaining insight to safety behaviors and how anxiety manifests itself, as well as harmful impact of safety behaviors on mental health. Client appears to be progressing with increasing awareness of his mental health symptoms and increased ability to apply skills outside treatment environment. Will continue IOP to promote continued skill application, challenge distorted thoughts, and prevent decompensation. Narrative Note: []
--- NOTE | 2019-02-08 11:22 | BH.SGPN.GN ---
Behaviors/Verbalizations/Mental Status: [Client alert and oriented, casual in appearance. Eye contact good. Motor activity appropriate. Speech within normal limits. Affect congruent, mood euthymic. Thoughts linear, logical, no signs of hallucinations or delusions.] Client Response/Progress/Benefit: [Pt an attentive and positive participant, actively engaged during discussion. Providing insight and asking questions as needed throughout. Pt able to connect with the discussion reviewing three categories of skills for managing anxiety which included mind-based, body-based, and self-soothing. Pt did well to brainstorm with the group various skills within the different categories, expressing interest most in body-based interventions. Pt completed worksheet identifying what relaxation skills he currently uses to manage anxiety and identified what skills he would be willing to begin trying to help manage anxious symptoms. Pt identified she is willing to try the following relaxation skills: focusing on different instruments when listening to music, being outdoors, spending time with animals, positive self-talk, guided imagery, progressive muscle relaxation, and exercise. Pt seemed to benefit from increased awareness of healthy skills to manage anxious symptoms and identifying skills willing to practice outside treatment environment. Pt progress continues to be impacted by difficulties with challenging negative self-talk and unrealistic expectations. Recommended to continue IOP level of care to continue to promote use of healthy coping skills, reduce self-deprecation, and prevent decompensation.] Narrative Note: []
--- NOTE | 2019-02-09 09:00 | BH.SGPN.GN ---
Behaviors/Verbalizations/Mental Status: [] Eye contact is good. Motor activity is appropriate. Appearance is causal. Speech is Appropriate. Mood is depressed. Affect is flat. Thoughts are linear and logical. No evidence of psychosis. Reviewed daily check in sheet and no reports of suicidal ideations or intent. Client Response/Progress/Benefit: [] Pt was an active participant in group discussion. Emotion for today is aware. Pt reports that yesterday and today he has been more self-reflective. Increased awareness and guilt for his previous behaviors. Insight on changes that he would benefit to make. Wants to increase his independence and reliance on others. Discussed how this would improve his mental health as well as his relationship with others. Discussed guilt that he has over his previous actions. Group was support and provided feedback and encouragement which was beneficial. Progress noted per pt report. Will continue in IOP to prevent decompensation, stabilize mood, and improve daily functioning. Narrative Note: []
--- NOTE | 2019-02-09 10:02 | BH.SGPN.GN ---
Behaviors/Verbalizations/Mental Status: []Client alert and oriented, neatly dressed and groomed. Eye contact good. Motor activity appropriate. Speech within normal limits. Affect congruent, mood anxious. Thoughts linear, logical, no signs of hallucinations or delusions. Client Response/Progress/Benefit: []Client was attentive and participating during discussion. Client participated in discussion of the quote and shared belief that people do not always have the choice of their circumstances, ?but you can choose to fight what your depressed mind is telling you to do.? The group worked together to identify barriers that keep one from choosing a new and healthier path to mental wellness which included; unhealthy habits, fear of failure, procrastination, stigma, lack of supports, and negative thinking. Attentive during psychoeducation on the chapters of life. Client was attentive during discussion, providing insight to distinguishing factors in each chapter. Client shared to choose a different path, one needs awareness and opposite action. Client reported when he practices opposite action, he feels accomplished. Benefited from increased awareness and education on barriers to choosing new wellness paths and chapters of life. Progress noted as client reports improved self-awareness and practicing healthy coping skills outside of IOP. Will continue IOP tx to further reduce anxiety and anger while improving client?s ability to function at his baseline. Narrative Note: []
--- NOTE | 2019-02-09 11:10 | BH.SGPN.GN ---
Behaviors/Verbalizations/Mental Status: []Client alert and oriented, casually dressed and groomed. Eye contact good. Motor activity appropriate. Speech within normal limits. Affect congruent to topic being discussed, mood euthymic. Thoughts linear, logical, no signs of hallucinations or delusions. Client Response/Progress/Benefit: []Client was an active participant in group discussion, contributing to discussion and listened attentively to others. Completed worksheet and willing to share with the group. Client reported believe he is currently in chapter 2, but moving towards 3? as client shared he is starting to realize what he is responsible for in regards to current and past behavior. Client stated he is trying to learn from his past mistakes and choices. Client shared to get to the next chapter he will focus on what is in his control and deal with situations directly verus avoiding what makes him uncomfortable. Client identified things currently doing that will help him get to the next chapter include no longer being in denial or avoiding what he is done in the past. Client stated he is trying to learn from his past choices, instead of dwell. Benefited from group by identifying thoughts and behaviors that have kept him stuck and developing plan to promote progress. Will continue in IOP to improve emotional regulation, continue to use healthy coping skills and prevent decompensation. Narrative Note: []
--- NOTE | 2019-02-10 09:06 | BH.SGPN.GN ---
Behaviors/Verbalizations/Mental Status: [Client alert and oriented, casual dress, hygiene tended to. Eye contact good. Motor activity appropriate. Speech within normal limits. Affect congruent, mood euthymic. Thoughts linear, logical, no signs of hallucinations or delusions. Reviewed client?s symptom tracker, no signs of suicidal ideation, plan, or intent as of today.?] Client Response/Progress/Benefit: [Pt was an active participant in group discussion, providing input and openly processing with the group. Emotion for today is relieved as pt indicated successfully regulating his emotions after forgetting his morning meds at home and having to return for them. Went on to indicate not allowing his negative thoughts to determine how the rest of his day will go. Pt did well to identify two current mental health ?wins? or positives which included applying calming and thought challenging skills to reduce agitation when face with a stressor this morning. 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 Pt shared this had gone well and that he had been proud of how well he was able to adjust to the new environment. appeared to benefit from the structured supportive environment. Progress noted in pt self-report as well as observable improved ability to regulate emotions in varying stressful situations. Pt recommended continued IOP tx to continue to promote change behaviors, increase consistent skill application, and prevent decompensation. ] Narrative Note: []
--- NOTE | 2019-02-10 11:23 | BH.SGPN.GN ---
Behaviors/Verbalizations/Mental Status: []Client alert and oriented, neatly dressed and groomed. Eye contact intense. Motor activity appropriate. Speech within normal limits. Affect congruent, mood anxious. Thoughts linear, logical, no signs of hallucinations or delusions Client Response/Progress/Benefit: []Client attentive, engaged during discussion and activity. Contributed to discussion on how the group was successful in the activity because they were encouraging and had growth-mindset thoughts. Client shared using calming coping skills helped client during the activity. Client did well to apply cognitive restructuring to reframe previously identified fixed thoughts, transforming his fixed thought from previous group to a growth thought of ?I?m taking the time to figure out my mental health and change will take time.? Client shared he is gaining more awareness of his unrealistic expectations for progress and is trying to challenge them. Client participated as the group brainstormed strategies to promote growth-mindset thinking. Client selected the strategy of emphasizing learning well over learning easy to improve his growth-mindset thinking. Benefitted from discussing benefits of growth mindset and brainstorming strategies for prompting growth-mindset. Client displaying progress as client reports increased self-awareness and has been practicing healthy coping skills. Will continue IOP tx to prevent decompensation and improve mood stability. Narrative Note: []
--- NOTE | 2019-02-10 11:33 | PCM.BH.PN_ITS ---
Progress Note Progress Note: History of Present Illness/Interim History: [] Is a 28-year-old male with a history of bipolar disorder and ADD who is seen in follow- up at the [facility] program. I last saw him 2 weeks ago and at that time his Lamictal dose was increased to 150 mg p.o. daily the patient says he is feeling better. His moods feel more stable lately and he attributes this to the increased Lamictal dose. He also feels that the support and education he is learning in the IOP program is really helping him cope with his life also. He feels his he is learning valuable skills in the IOP program. He describes his mood as a little bit depressed still but much less labile. His sleep is about 7 to 8 hours a night. He has some increase in dreaming since increasing the Lamictal dose but these are not bad dreams. He denies any thoughts of self- harm, suicide or homicidal ideation. He is less irritable since increasing the Lamictal dose. He is still enjoying seeing his kids and he and his are still working on their marital issues. He is still living with his mother but sees his children and frequently. 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 Current Psychiatric Medications: [] Lamictal 150 mg p.o. nightly; Vyvanse 70 mg p.o. every morning. Mental Status Examination: Patient is a 28-year-old male who appears normal for stated age and is casually dressed and groomed with good hygiene. He has good eye contact and his speech is normal rate and rhythm with no pressure. He is cooperative and pleasant during the interview. Mood is a little down to euthymic. Affect is full and normal. Thought process: Goal-directed and organized. Thought content: No evidence of suicidal, homicidal ideation. No evidence of hallucinations or delusions. Judgment intact. Insight improving. Impulsivity moderate. [] Diagnoses: [place] I: [] Bipolar 2 disorder (F 31.81); ADHD; generalized anxiety disorder; history of alcohol use disorder in full remission for 3 years. [place] II: [] Deferred [place] III: [] GERD [place] IV:[]] Memory support, housing, financial issues Plan: [] He will continue participating in the [facility] program as the structure, support, education, group and individual therapy will prevent exacerbation of his symptoms which might require hospitalization. He felt safe during the interview and if it any time he does not feel safe he agrees to notify us at the IOP program or go to the emergency room. The risks, options, and possible side effects and complications of the medications were discussed with the patient and he understands and accepts these. He will continue his current psychiatric medicines at their current doses and no changes in medication were made today.
--- NOTE | 2019-02-10 18:28 | BH.MDN_ITS ---
Multi-Disciplinary Note - Note 30-min Individual Time Started:: 10:57 Date: 02/10/19 Purpose of session/treatment goals addressed:: The purpose of this session was to assess current symptoms, stressors, and treatment progress. Another purpose was to identify strategies for improving emotion regulation skills and provide Pt with psychoeducation on the window of tolerance and emotional arousal. Eye Contact:: Good Motor Activity:: Appropriate, Restless Appearance:: Casual Speech:: Appropriate, Rambling Mood:: Anxious, Depressed Affect:: Congruent Thoughts:: Linear, Logical, No evidence of hallucinations/delusions noted Staff Interventions:: Therapist asked open-ended questions to elicit information regarding current symptoms, stressors, and tx goal progress. Provided empathic responses and supportive feedback as discussed frustrations. Therapist gently challenged pt use of distorted thinking patterns. Applied IA concepts to elicit change behaviors. Client Response:: Pt receptive of session and actively engaged in discussion throughout. He discussed feeling ?better than the last time we meet ? as he reports that he has spent time further processing feelings of guilt with his and feels a greater sense of clarity as a result. Pt went on to discuss that although he has been speaking more with his and using her as a support, this has also been a major stressor for him as Pt reports continuing to ruminate on the state of their relationship. Pt reports struggling to accept that they are and that the relationship may not be able to be repaired. Discussed impact of current relationship on his mental health and maintaining difficulties with regulating his emotions. Pt revealed historically having issues in coping with his emotions when supports have engaged in behaviors or made a decision that he does not agree with. Ongoing issues with application of Internal means for coping as Pt reports wanting to spend time with supports when overwhelmed despite knowing that they will not always be applied available. Went on to our share feelings of guilt associated with his past aggressive behaviors and noted that this continues to impact overall self- esteem. Pt inquired as to why he has continued to experience difficulties in managing anger. Pt and receptive of education on trauma and emotion regulations, pt and therapist discussed zone of tolerance and identified strategies for pt to remain within zone of tolerance. Risks/Concerns:: No risks or concerns. Pt denies any active SI, plan, or intent as of this date 02/10/19. Progress Toward Goals/Plan:: Progress noted. Insight that urge to rely solely on others as primary means for coping has been impacting his own mental health and ability to function. Identifies relationship contributing to ongoing rumination and irritability. Reports increased insight regarding mental health and how past behaviors have impacted mood. Overall increase use in application of distress tolerance skills which is contributing to improved emotion regulation and decreased depression. Pt will continue in IOP to prevent decompensation, improve depression and ability to cope with grief, as well as continue to stabilize mood. Time Stopped:: 11:27
[2019-03-17 08:37] VITALS: BP 112/70; PULSE 92; RESP 14
== END 2019-02-11 23:59 ==
LOC: BHIOP 09:00
PROVIDERS: Family Provider Family Medicine; PCP Family Medicine; Referring Provider Psychiatry & Neurology Psychiatry; Visit Provider Psychiatry & Neurology Psychiatry
DX: F33.2 Major depressive disorder, recurrent severe without psychotic features (principal); F41.1 Generalized anxiety disorder
CPT/HCPCS: H0035; 90832; 90853

== ENCOUNTER 2019-02-15 09:00 | Outpatient (RCR) | payer BC, SELFPAY ==
--- NOTE | 2019-02-15 09:06 | BH.SGPN.GN ---
Behaviors/Verbalizations/Mental Status: [Client alert and oriented, casual dress, hygiene tended to. Eye contact good. Motor activity appropriate. Speech within normal limits. Affect congruent, mood dysthymic. Thoughts linear, logical, no signs of hallucinations or delusions. Reviewed client?s symptom tracker, no signs of suicidal ideation, plan, or intent as of today.?] Client Response/Progress/Benefit: [Pt receptive of session, engaged in group discussion and willing to process with the group. Emotion for today is relieved, as Pt explained he had successfully overcome a difficult weekend. He went on to describe various stressors involving finances and new requirements for him to spend less time in the home during their separation in over for his to qualify for additional aid. Pt expressed that this resulted in increased frustration and triggered urges to drink as a means of coping. Pt reported he experienced a mental health ?win? in the fact that he avoided use of alcohol and instead spent time with friends after work. Additional win described as applying opposite action skills when struggling with depressive thoughts over the weekend. Indicates telling himself ?this is just a setback, I?m not starting over?. Progress noted in reports of increased emotion regulation. Pt appeared to benefit from the support of the group and structured environment. Pt recommended continued IOP tx to continue to promote change behaviors, increase consistent skill application to improve emotion regulation, and prevent decompensation.] Narrative Note: []
--- NOTE | 2019-02-15 10:20 | BH.SGPN.GN ---
Behaviors/Verbalizations/Mental Status: []Client alert and oriented, neatly dressed and groomed. Eye contact good. Motor activity appropriate. Speech within normal limits. Affect congruent, mood anxious. Thoughts linear, logical, no signs of hallucinations or delusions. Client Response/Progress/Benefit: []Client was an active participant in group discussion and activity. Attentive during psychoeducation and commenting on the quote. Client reported ?no change means you stay miserable and the people around you pay for it.? Worked with the group to identify benefits to making changes in our lives which included: improving one?s mental health, increasing confidence, breaking out of one?s comfort zone, and reducing unhealthy coping skills. Group then identified barriers to change or what keeps us from making changes which included: it is easier to not change, lack of trust, lack of resources, lack of courage to change, lack follow through, negative thinking, and fear. Client reported in order to make positive changes, one has to change their way of thinking. Client participated along with group in activity where they identified and discussed the emotions related to change. Client was attentive during psychoeducation on the change process. Benefited from increased awareness and understating of emotions, benefits, and barriers related to change. Progress noted as client reports reduced irritability and improved outlook. Will continue IOP tx to promote emotional regulation and increase mood stability. Narrative Note: []
--- NOTE | 2019-02-15 12:42 | BH.MDN_ITS ---
Multi-Disciplinary Note - Note 30-min Individual Time Started:: 11:32 Date: 02/15/19 Purpose of session/treatment goals addressed:: Purpose of this session was to assess pt current symptoms, stressors, and progress in IOP tx. Another purpose was to discuss relationship between thoughts and emotion on mental health and coping strategies used. Additional topics included: beginning to review regulation strategies for improved anger management. Eye Contact:: Good Motor Activity:: Appropriate Appearance:: Casual Speech:: Appropriate Mood:: Anxious, Dysthymic Affect:: Full Thoughts:: Linear, Logical, No evidence of hallucinations/delusions noted Staff Interventions:: Therapist asked open ended and furthering questions to elicit additional information regarding pt current symptoms, stressors, and tx goal progress. Provided supportive feedback and empathic responses to normalize pt emotions and frustrations. Commended pt on treatment goal progress and utilized IA techniques to continue to elicit healthy change behaviors. Provided psychoeducation on DBT components of [employer] and relationship between thoughts and emotions on mental health. Worked with pt to identify small goals for improving emotion regulation skills. Provided homework. Client Response:: Pt receptive of session, actively engaged throughout and willing to openly discuss current symptoms, stressors, and treatment progress. Pt indicated that he had a difficult start to his weekend as he was informed that for his to continue to receive community assistance, he would no longer be able to stay overnight in the home. Pt shared that this requirement felt unjustified and was detrimental to his ability to continue to repair the relationship with his and spend time with his children. Pt went on to discuss experiencing an increased desire to drink as a result, but was able to remind himself of the consequences to his mental health and tx progress if he were to engage in such behaviors. Pt noted spending time with friends instead however, began to experience the urge to consume alcohol when he was alone afterwards, though successfully refrained from doing so. Reviewed with therapist additional healthy coping skills to use in times of increased urges to drink. Went on to discuss that although he did not drink, he struggled the next morning with feelings of shame and disappointment in himself. Shared feeling ?I should be having the urge to drink or want to justify those behaviors?. Pt open to discussing concepts of self-compassion in mental health recovery and did well to identify negative self-talk statements as ?unfair? or unrealistic expectations of himself. Pt displays insight regarding how his self-confidence levels may impact thoughts, feelings, and behaviors. Went on to discuss another situation over the weekend in which unrealistic expectations of himself impacted his ability to regulate his emotions and found himself becoming angrier as a result. Pt noted that he had been able to identify these warning signs before escalating to crisis and refrained from responding to a text from his until calming down. Pt initially struggle with believing this meant he was avoiding but did well to understand difference between taking a break to regulate vs, shutting down upon further processing. Reports wanting to work on becoming more comfortable and confident in himself moving forward. Provided with homework to doron zelaya one self-love skill this week. Risks/Concerns:: No risks or concerns at this time. Pt denies any active SI, plan, or intent as of 02/15/19. Progress Toward Goals/Plan:: Progress noted. Pt reports improved ability to apply thought challenging and positive self-talk skills in order to prevent from engaging in unhealthy coping behaviors when upset or triggered. Pt continues to report small improvements in processing and addressing uncomfortable emotions or feelings or being out of control. However, noted increased difficulty in doing so over weekend due to i current stressors. Reports successfully managing a trigger over the weekend in healthy ways rather than drinking. Pt continues to report self-deprecation and unrealistic expectations of self impacting confidence and overall tx progress. Time Stopped:: 12:21
--- NOTE | 2019-02-16 09:07 | BH.SGPN.GN ---
Behaviors/Verbalizations/Mental Status: []Client alert and oriented, neatly dressed and groomed. Eye contact good. Motor activity appropriate. Speech rambling. Affect constricted, mood euthymic. Thoughts linear, logical, no signs of hallucinations or delusions. Reviewed client?s symptom tracker, no risk for suicidal ideation, plan, or intent as of 02/16/19. Client Response/Progress/Benefit: []Client responded well to session, receptive and attentive throughout session. Client reports feeling ?relieved? today. Client identified his mental health wins for today and shared that overall he see an improvement. Client?s wins included using emotional regulation skills to reduce unhelpful emotional reactions, challenging his perspective, and thinking things through before responding. Client reported giving himself time before he reacts to situations has helped client make less unhelpful choices. Client?s stressor today is that he has been thinking more about the loss of his son which triggers client?s grief. The group offered supportive statements and therapist reminded client of the local grief counseling agency in [place]. Appeared to benefit from connecting with peers. Progress noted in client?s report of generalizing healthy coping skills. Will continue IOP tx to prevent decompensation, improve mood stability, and further increase healthy coping skills. Narrative Note: []
--- NOTE | 2019-02-16 10:20 | BH.SGPN.GN ---
Behaviors/Verbalizations/Mental Status: []Client alert and oriented, casually dressed and groomed. Eye contact good. Motor activity appropriate. Speech within normal limits. Affect congruent to topic being discussed, mood euthymic, positive. Thoughts linear, logical, no signs of hallucinations or delusions. Client Response/Progress/Benefit: []Pt active participant AEB pt providing input during discussion and appeared to listen attentively to peers. Pt appeared to connect with others comments about the negative impact of defining self by mental illness. Group identified social stigma can come from how the media, society, and upbringing portray mental illness. Group identified media and society portray mental health as: dangerous, negative, not good enough, abnormal, and romanticize it. Pt stated he was diagnosed with mental health problems at a young age and felt like due to stigma he was treated differently. Pt reported societal stigma made him feel the need to hide his mental illness. Able to connect how societal stigma has contributed to internal stigma in which he uses humor and hiding his mental health. Pt seemed to benefit from increased awareness of how societal and internal mental health stigma can impact functioning. Pt progressing with reporting reporting utilization of healthy coping skills outside treatment environment. Pt to continue IOP level of care to continue use of healthy coping skills, challenge negative thoughts, and prevent decompensation. Narrative Note: []
--- NOTE | 2019-02-16 11:25 | BH.SGPN.GN ---
Behaviors/Verbalizations/Mental Status: [Client alert and oriented, casually dressed and appropriately groomed. Eye contact good, at times intense. Motor activity appropriate. Speech within normal limits, tangential at times. Affect congruent, mood euthymic. Thoughts linear, logical, no signs of hallucinations or delusions.] Client Response/Progress/Benefit: [Client responded well to session, engaged in activity, actively listening as well as providing input to discussion. At times client struggled with rambling or off-topic remarks, however continues to do well to respond to redirection. Group identified the benefits of addressing stigma which included; increased self-confidence, decreased feelings of shame or unworthiness, improved relationships, and increased willingness to ask for help. Client helped the group identify thoughts and behaviors people engage in that reinforce stigma. Client discussed at length the impact of media on reinforcing stigma and reported he has struggled with learned behaviors regarding not displaying emotions as well as self-comparison which reinforces stigma in his own life. Group brainstormed strategies to combat social and perceived stigma which included; changing personal language used, sharing positive mental health related media, communicating with supports, attending therapy, and increasing psychoeducation of self and others to reduce labeling behaviors. Client reported he will practice increasing self-awareness of his own language and emotions and begin practicing reaching out to others when overwhelmed or upset rather than minimizing and shutting down out of fear of being judged. Appeared to benefit from increasing awareness of ways he reinforces stigma and how to combat stigma. Will continue IOP tx to further reduce depression and anxiety, increase consistent use of internal coping mechanisms, as well as improve emotion regulation.] Narrative Note: []
--- NOTE | 2019-02-17 09:05 | BH.SGPN.GN ---
Behaviors/Verbalizations/Mental Status: []Client alert and oriented, casually dressed and groomed. Eye contact good. Motor activity appropriate. Speech within normal limits. Affect full, mood euthymic. Thoughts linear, logical, no signs of hallucinations or delusions. Reviewed client?s symptom tracker, no risk for suicidal ideation, plan, or intent Client Response/Progress/Benefit: []Pt engaged in session as shown by pt openly expressing thoughts and emotions. Pt identified emotion for today as hopeful. Pt identified a mental health positive as being able to challenge his negative perspective on situations and his life. Pt stated another mental health positive is starting to recognize and acknowledge small victories throughout his day. Pt reported he has changed his expectations of others, which he believes is starting to improve his relationships. Pt identified current stressor as being skeptical IOP can help with lasting change. Pt reported he feels more hopeful treatment will work now that he has seen multiple people graduate from IOP successfully. Pt seemed to benefit from support by peers. Pt showing progress with increased awareness of distorted thoughts and improved ability to challenge his negative perspective. Pt to continue IOP to increase healthy coping, challenge negative thoughts, and prevent decompensation. Narrative Note: []
--- NOTE | 2019-02-17 10:22 | BH.SGPN.GN ---
Behaviors/Verbalizations/Mental Status: []Client alert and oriented, neatly dressed and groomed. Eye contact good. Motor activity appropriate. Speech tangential. Affect congruent, mood euthymic. Thoughts linear, logical, no signs of hallucinations or delusions. Client Response/Progress/Benefit: []Client was an active participant as evidenced by providing to discussion and listening attentively to peers. The group discussed the quote and how the emotion anger is not good or bad, but one can respond to anger in healthy or harmful ways. Client reported this group really connects with him because he has experienced the negative consequences of unmanaged anger. Client worked with the group to define anger and its causes, as well as the internal and external impacts of anger. Group identified potential consequences of unhealthy management of anger to include: losing relationships, guilt, loss of job, increased stress, and worsening mental health symptoms. Client identified underlying factors of his anger which included: fear, worry, embarrassment, grief, hopelessness, shame, invalidation, and self-hatred. Client stated yelling, being short in his responses, shutting down, and making demeaning comments are common responses he has when feeling angry. Benefited from group by increasing awareness of the negative impacts of unmanaged anger and underlying factors that contribute to his personal anger. Progress noted as client reports increased self-awareness of unhealthy coping skills and reports practicing mindfulness. Will continue IOP tx to prevent decompensation and to improve mood stability. Narrative Note: []
--- NOTE | 2019-02-17 11:30 | BH.SGPN.GN ---
Behaviors/Verbalizations/Mental Status: [Client alert and oriented, casual dress, hygiene fair though tended to. Eye contact good. Motor activity appropriate. Speech within normal limits. Affect congruent, mood euthymic. Thoughts linear, logical, no signs of hallucinations or delusions.] Client Response/Progress/Benefit: [Pt remained an active participant throughout, AEB engagement in both activity and discussion potions of session. Pt did well to challenge himself to complete the group activity and incorporate anger management/emotion regulation skills in order to do so. Pt responded well to encouragement provided and used positive self-talk statements to prevent from becoming frustrated throughout. He worked with the group to process and identify the various barriers faced in the activity as well as skills used to successfully complete the task at hand without becoming dysregulated or overwhelmingly angry. Pt identified barriers impacting his own ability to better manage anger related symptoms which included: lack of self-awareness, pressure he puts on himself, difficulties communicating when upset, and becoming overwhelmed. Pt appeared to benefit from discussion regarding potential benefits of anger and brainstorming with the group potential strategies for means of harnessing anger in healthy ways. Pt identified plans to begin increasing self-awareness of personal anger triggers and warning signs to improve coping with anger related sx. Recommended continued IPO txt to reduce mental health sx, continue to promote mood management, and prevent decompensation.] Narrative Note: []
--- NOTE | 2019-02-22 09:08 | BH.SGPN.GN ---
Behaviors/Verbalizations/Mental Status: [Client alert and oriented, casual dress, hygiene tended to. Eye contact good. Motor activity appropriate. Speech within normal limits. Affect congruent, mood euthymic and positive. Thoughts linear, logical, no signs of hallucinations or delusions. Reviewed client?s symptom tracker, no signs of suicidal ideation, plan, or intent as of today. ] Client Response/Progress/Benefit: [Pt was an active participant in group discussion, providing input and openly processing with the group. Emotion for today is proud as pt indicated having a major mental health ?win? on previous night. He went on to share a situation in which he had been triggered by his [id number] and felt angry and concerned as a result. Pt discussed that in the past he would have escalated the situation by acting irrationally; however, did well to apply calming skills to prevent from doing so. Pt reports that he instead put his phone somewhere out of reach to keep from verbally taking his frustrations out on his and was able to use his mom as a support instead. Pt benefitted from recognizing areas of personal growth and discussed observing progress in his ability to recognize anger warning signs and apply calming skills to prevent escalating. Expressed continued difficulties in consistency as an ongoing stressor but did well to recognize that progress will take time. Continued IOP tx recommended to improve emotion regulation skills, increase consistent communication with supports, and prevent decompensation.?] Narrative Note: []
--- NOTE | 2019-02-22 10:25 | BH.SGPN.GN ---
Behaviors/Verbalizations/Mental Status: []Client alert and oriented, casual in appearance. Eye contact fair. Motor activity appropriate. Speech within normal limits. Affect congruent, mood anxious. Thoughts linear, logical, no signs of hallucinations or delusions. Client Response/Progress/Benefit: []Client active participant as evidenced by client providing input throughout discussion and appeared to listen attentively to others. Client agreed with others that he experiences automatic negative thoughts. Client connected with the discussion about how distorted thought patterns can reinforce mental health symptoms. Client reported before getting treatment at IOP he invented a negative view of life with his thought patterns, but has been working on creating a new positive view of life by changing his thoughts. Client reported previously he has minimized his mental health symptoms by telling others I'm doing good. Client recognized by minimizing he wasn't getting the help he needed. Appeared to benefit from increasing awareness of cognitive distortions and how they can impact emotions and behaviors. Client to continue IOP to stabilize moods, increase healthy coping skills, and prevent decompensation. Narrative Note: []
--- NOTE | 2019-02-22 11:25 | BH.SGPN.GN ---
Behaviors/Verbalizations/Mental Status: []Client alert and oriented, neatly dressed and groomed. Eye contact good. Motor activity appropriate. Speech within normal limits. Affect congruent, mood euthymic. Thoughts linear, logical, no signs of hallucinations or delusions. Client Response/Progress/Benefit: []Client responded well to session AEB participating in activity and contributing in group discussion. Client connected with the discussion about how distorted thought patterns can reinforce mental health symptoms. Client worked with the group on defining the various types of cognitive distortions and identifying how each distortion can negatively impact mental health. Client reported he has been working catching his distorted thoughts to help better manage anxiety and anger. Client acknowledged that replacing distorted thoughts will take time and effort. Client worked with his small group as they practiced thought challenging by identifying distortions and replacing them with more realistic statements. Client attentive during psychoeducation on strategies to combat distortions, but he left early before sharing the strategy he would like to work on this week. Appeared to benefit from increasing awareness of cognitive distortions and practicing thought challenging. Progress noted as client reports actively applying coping skills outside of IOP. Will continue IOP to promote gains and further improve mood stability. Narrative Note: []
--- NOTE | 2019-02-23 09:08 | BH.SGPN.GN ---
Behaviors/Verbalizations/Mental Status: [Client alert and oriented, casual dress, hygiene tended to. Eye contact good. Motor activity appropriate. Speech within normal limits. Affect congruent, mood euthymic and positive. Thoughts linear, logical, no signs of hallucinations or delusions. Reviewed client?s symptom tracker, no signs of suicidal ideation, plan, or intent as of today. ] Client Response/Progress/Benefit: [Pt responded well to session, arriving late but able to actively engage throughout. Providing supportive feedback and encouragement throughout. Pt indicated current emotion as --- and discussed continued progress towards treatment goals as major contributing factor. Current wins identified as not allowing the fact that he had missed his alarm and was late to group to anger him. Shared use of positive self-talk and self-compassion practices to contribute in his ability to do so. Additional win described as Pt being able to slow down and enjoy the drive to group by focusing on how pretty he found the snow rather than becoming irritated by being late. Pt progress noted in his ability to identify potential triggers and implement self-care and positive self talk. Pt recommended continued IOP tx to prevent decompensation, decrease anxiety, and promote ongoing application of healthy coping skills.] Narrative Note: []
--- NOTE | 2019-02-23 09:44 | BH.MDN_ITS ---
Multi-Disciplinary Note - Note 30-min Individual Time Started:: 11:09 Date: 02/23/19 Purpose of session/treatment goals addressed:: Purpose of this session was to review current symptoms, stressors, and progress towards tx goals. Another purpose was to identify areas for continued focus and small goals to continue to promote progress in improved emotion regulation. Additional topics: Reviewed DSM cross-cutting scales, discussed strategies for increasing ability to cope with control related issues. Eye Contact:: Good Motor Activity:: Appropriate Appearance:: Casual Speech:: Appropriate Mood:: Euthymic, Anxious Affect:: Congruent Thoughts:: Linear, Logical, No evidence of hallucinations/delusions noted Staff Interventions:: Therapist asked open-ended and furthering questions to elicit information on pt current symptoms, stressors, and perceptions of treatment goal process. Applied strength?s-based approaches to promote self- efficacy, aid pt in identifying strengths and areas of progress, and continue to promote gains. Therapist utilized MS techniques to identify where pt has made gains, areas for continued growth, potential barriers, and small goals to continue application of change behaviors. Reviewed DSM cross-cutting scales with patient. Discussed strategies for continued improvement on emotion regulation and ways to increase self-confidence and connection with personal supports. Client Response:: Pt receptive of session, active participant throughout. He reports being in a more positive mood the past week and indicated beliefs that this is due to increased consistency in skill application. Pt discussed that he has been making efforts to check-in with himself and when feeling overwhelmed or agitated ask himself ?it?s okay to be feeling this emotion, but is the intensity of the emotion appropriate for the situation?. Noted that by doing so he has had various instances in which he was able to prevent anger from escalating to point of outburst. Shared an instance in which he felt successfully calmed himself when feeling invalidated and dismissed by his by putting his phone down to prevent from responding, telling himself positive affirmations, and speaking with his mother. Pt reflected that he has been able to recognize anger warning signs and triggers more easily now that he has gained increased understanding through material learned in IOP program and is better able to self-regulate. Additionally noted improved relationships with his supports as a result. Pt shared that he has recently take steps to reach out to his father and work on repairing their relationship as pt has been able to practice forgiveness of other?s past transgressions as well. Therapist and pt reviewed current DSM scores and discussed additional areas of progress. Pt shared being pleased by the drop in overall scores as his scores at admission were a 31 and today?s DSM indicated scores at 23. Noted feeling he has made most progress with mood regulation, especially in the relationship with his . C ontinues to improve in his ability to calm himself prior to responding when escalated. Pt identified wanting to focus on further strengthening his social support network and self-confidence. Shared that during personal reflection on what contributes to sx of anger he believes it is often due to difficulties in adjusting to not being in control of a situation or fear. Pt and therapist discussed strategies for increasing self-confidence and client indicated that making an effort to reach out to his brother, Donald, would be beneficial as he has avoided reaching out to him in the past out of fear he wouldn?t want to spend time. Pt reports knowing this is not true and believes he would feel better in facing this fear head on. Risks/Concerns:: No risks or concerns noted. Pt denies active SI, plan, or intent as of this date, 02/23/19 Progress Toward Goals/Plan:: Progress noted per pt report of feeling his mental health sx of depression, irritability, and anxiety have decreased, as well as increase reports of increased application of emotion regulation, anxiety management, and self-care skills. Pt completed DSM cross-cutting scales as this is week 4 IOP treatment. When compared to DSM scores on admission pt showed a decrease in symptoms, see treatment plan review for further detail. Pt showed a decrease in categories of depression, irritability, anxiety, and personal connection with others. Overall progress noted in areas of tx engagement and skill application. Pt continues to report increased ability to apply thought challenging and calming skills. Pt however continues to struggle with consistency of skill application and reports times in which he continues to have intrusive thoughts and anxiety about things outside his control or when face with the unknown. Pt to continue IOP tx to maintain gains, prevent decompensation, and continue to promote healthy emotion regulation skills. Refer to treatment plan review for more information. Time Stopped:: 11:48
--- NOTE | 2019-02-23 10:25 | BH.SGPN.GN ---
Behaviors/Verbalizations/Mental Status: []Client alert and oriented, neatly dressed and groomed. Eye contact intense. Motor activity appropriate. Speech rambling. Affect congruent, mood euthymic. Thoughts linear, logical, no signs of hallucinations or delusions. Client Response/Progress/Benefit: []Client receptive of session, attentive in discussion and activity. Client discussed the quote and shared he used to be afraid to express his emotions, but now he realizes if he does not express his emotions ?it turns into anger.? Client helped group identify the consequences of not effectively managing emotions which included; strained relationships, guilt, suppressing emotions, increased negative thinking, resentment, blowing things out of proportion, and impulsive behaviors. Client reported he has ?burned a lot of bridges? by not being able to regulate his emotions in the past. Group identified barriers that impact one?s ability to communicate when emotions are high. These barriers included; acting on impulse, shutting down, physical aggression, assumptions, and misinterpretations. Client was taken out of group by his individual counselor and did not get to participate in the activity. Client appeared to benefit from increasing awareness of how emotions can impact communication. Progress noted as client reports less anger and better emotional regulation outside of group. Will continue IOP tx to promote the use of healthy coping skills and further decrease symptoms. Narrative Note: []
--- NOTE | 2019-02-23 11:25 | BH.SGPN.GN ---
Behaviors/Verbalizations/Mental Status: []Client alert and oriented, casual in appearance. Eye contact fair. Motor activity appropriate. Speech within normal limits. Affect congruent, mood euthymic. Thoughts linear, logical, no signs of hallucinations or delusions. Client Response/Progress/Benefit: []Client attentive and contributing to discussion. Attentive during psychoeducation on 4 zones of regulation. Client able to identify how she feels in each zone as well as how she acts in each zone. Client able to identify what behaviors she exhibits when in the different emotional zones. Client stated when he is in a low state of alertness he sleeps and isolates. Pt stated when in an extreme state of alertness like when experiencing the emotion rage he will yell, throw things, and name call. Client able to identify coping skills he can use to support himself in each zone which included: positive self-talk, appreciating the little things, problem solving, breathing, mindfulness, and taking a break. Benefited from group from increased education on zones of regulation or stages of alertness for emotions and healthy coping skills to use for each zone. Will continue IOP tx to maintain gains, prevent decompensation, and continue to improve emotional regulation. Narrative Note: []
--- NOTE | 2019-02-23 14:13 | BH.TPR ---
Treatment Plan Review Date of Admission:: 01/25/19 Date of Treatment Plan Review:: 02/23/19 Admitting Diagnoses:: ADHD (F 90.2), Bipolar, NOS (F31.9); generalized anxiety disorder,; history of alcohol use disorder in full remission for 3 years. Current Diagnoses:: ADHD (F 90.2), Bipolar, NOS (F31.9); generalized anxiety disorder,; history of alcohol use disorder in full remission for 3 years. Patient's Response to Treatment:: Client has responded well to treatment so far as shown by his report of increased understanding of his mental health and factors contributing to emotional dysregulation. He expressed decreased symptoms of anxiety and irritability as a result and notes he is making strides in improving ability to implement healthy coping skills for managing emotions, coping with feelings of being out of control of a situation, increasing communication with supports and and reducing negative self-talk. Pt has done well to remain engaged in tx environment and has provided overall positive contributions. At times pt struggles with being off topic or tangential, but responds well to redirection. Pt has remained consistent with attendance throughout admission, though has had various occasions in which he comes to group after it has started for the day. Pt initially reported feeling overwhelmed and somewhat skeptical of tx due to previous occasions in which he found treatment to be ineffective for him. Since continuing in the program, however, pt has done well to remain open to information discussed and reports finding value in the material which has aided in his overall progress. Pt does well to remain actively engaged in both individual and group sessions. He frequently volunteers to share first during discussion, often provides support to fellow participants, and is an active participant in challenge activities. During individual sessions, client is receptive to feedback and psychoeducation regarding ways in which his stressors, thoughts, and behaviors contribute to mental health related sx and may reinforce irritability. Pt has some issues in remaining consistent with homework completion, specifically in regard to worksheet materials, however has been able to more successfully begin implementing healthy coping skills to manage his anxiety and better regulate emotions. At admission, client reported symptoms of anxiety, depression, low self-esteem, poor motivation, mood swings, increased anger, and impulsivity that interfered with daily functioning. At review client reported reduced anxiety, decreased irritability due to improved use of emotion regulation skills, and increased motivation as well as better communication with supports. Pt shared he is looking forward to continuing to make gains in improving self-confidence and anger management, as well as increasing his use of family supports. Pt reports wanting to focus more specifically on reducing his need for control. Pt has seen an decrease in DSM-5 scores. Depression scores have reduced by 50% since admission, anger scores reduced by 67%, and anxiety scores have shown a reduction of 20% since beginning IOP tx. Status of Current Problems and Symptoms: Client is showing progress towards his treatment goals in various areas and would benefit from continued focus in consistency in other areas. Client is showing progress with using calming skills of taking a step back and deep breathing prior to responding, going for a walk to cool down, and reaching out to supports to prevent anger outbursts. Client denies any suicidal ideations and reports more hope for the future. Client continues to work on better identifying warning signs and triggers for anger and anxiety and is making progress in his ability to identify what is in his control and cope with what is outside of control. Pt reports increased communication with his with in healthy and constructive ways. However, client continues to struggle with challenging distorted thinking patterns, unrealistic expectations of self and others, and processing his emotions. Client continues to display progress as evidenced by client?s self-report and application of coping skills. Problem #1 Problem Name:: Anxiety Status of Goals:: Objective-1 partially complete. Client can identify some anxiety related triggers and warning signs. He is able to identify potentially helpful coping mechanisms for reducing anxiety such as speaking to a support, positive self-talk, and reminding himself he has been able to make it through harder things; however, pt continues to struggle in consistently doing so. Pt most significantly experiences difficulties in managing anxieties when experiencing unexpected stressors. Client completed the DSM-5 and anxiety sx have reduced by 20%. Team Recommendations:: Client encouraged to continue working on this treatment goal to reinforce healthy coping skills and continue to further decrease symptoms of anxiety. Client and therapist currently working on small confidence building goals, thought challenging, and practicing calming skills. Will continue IOP tx to maintain gains and continue to decrease anxiety related sx. Problem #2 Problem Name:: Anger, mood swings Status of Goals:: Objective 1-partially complete. Client reports using self-talk and mindfulness strategies to increase awareness of warning signs and triggers for irritability and better regulate emotions. Reports wanting to increase ability to sit with the uncomfortable or moments he does not have control without becoming overwhelmed or upset. Pt is able to identify and have begun using emotion regulation skills but would benefit from more consistent skill application. Objective 2 ? partially complete. Client reports reduced isolation and increased social interaction with friends and family rather than shutting down. He reports applying effective communication strategies learned and talking breaks with agitated to return to baseline prior to responding or engaging in discussion. Despite progress made, pt continues to struggle with consistency and reports ongoing difficulties in communicating with his when upset or feeling invalidated/ignored. Team Recommendations:: Client encouraged to continue working on this treatment goal to reinforce healthy coping skills to improve emotion regulation. Client and therapist currently working on reinforcing affirmations to reduce agitation and improve ability to self-regulate. Continued IOP tx recommended for further progress in this area.
--- NOTE | 2019-02-25 09:10 | BH.SGPN.GN ---
Behaviors/Verbalizations/Mental Status: []Client alert and oriented, casually dressed and groomed. Eye contact good. Motor activity appropriate. Speech within normal limits, at times rambling. Affect full, mood euthymic. Thoughts linear, logical, no signs of hallucinations or delusions. Reviewed client?s symptom tracker, no risk for suicidal ideation, plan, or intent. Client Response/Progress/Benefit: []Pt was an engaged participant as evidenced by pt sharing thoughts and feelings during check-in and listening attentively to peers. Pt stated a mental health positive was being able to effectively manage his emotions when found out his painted with another giovanna that pt believes likes his . Pt stated in the past he would have accused his of cheating, but this time he did not get angry. Pt reported he was able to stop himself before reacting to the information, which helped him look at the situation from a different perspective. Pt shared he is working on challenging his perspective and not being so reactive when things don't go his way. Pt reported his current stressor is worried his medications won't be ready in time since he forgot to call to refill on time. Pt recognizes he can't do anything to change this situation, but can learn from it by setting a reminder to call in his medications. Progress noted with pt using thought challenge to help manage his emotions. Continued IOP tx recommended to continue use of healthy coping skills, improve emotional regulation, and prevent decompensation. Narrative Note: []
--- NOTE | 2019-02-25 09:45 | BH.MTP ---
Master Treatment Plan - Patient Information Program Physician:: Dr. Mecca Ng Primary Therapist:: BRYN Oquendo - Psychiatric Diagnoses Psychiatric Diagnoses:: ADHD (F 90.2), Bipolar, NOS (F31.9); generalized anxiety disorder,; history of alcohol use disorder in full remission for 3 years. Diagnosis Code(s):: F31.9 - Estimated LOS Estimated LOS (in weeks):: 6 Problem/Goal #1 - Problem/Goal #1 Stated Goal:: Client will reduce anxiety due to Generalized Anxiety Disorder through IOP services. Description of Barriers: Client reports history of trauma and difficulties in managing emotions that continues to impact client. Reports from a young age he has learned to suppress his feelings until point of crisis which often results in anger outbursts via verbal outbursts, property damage, and arguments with supports. Client reports his relationship with his has been strained as a result of poor emotion regulation and that they are currently as a result. Indicated that the recent loss of a child to SIDs has had significant impact on his mental health and relationships with supports. Pt reports he is currently living with his mother and stepfather which has been a stressor as he is unable to spend as much time with his children and is commuting further to work. Reports hx of problematic drinking behaviors but has not engaged in such behaviors since prior to IOP admission. Current stressors including; financial stress, lack of social support, family stress, hx of impulsivity, feelings of hopelessness, worthlessness, difficulties managing his emotions, and lack of concentration. Client reports limited awareness of warning signs and triggers. Client endorses numerous distorted thoughts that reinforce mental health symptoms and cause interpersonal relationship issues. Functional Impact: Client is a 28-year-old male with a history of Bipolar, NOS, anxiety, anger management problems, and alcohol use disorder. Client was referred to [facility] by family due to worsening mood symptoms resulting in erratic behaviors, impulsiveness, and increased irritability over the past month. Due to intensity of mood symptoms, pt has been ?kicked out of his house? following an argument with his on 01/17/19 and is now living with his parents. Additionally identified worsening mood symptoms in connection to ongoing grief following the loss of his son in June 2018 to SIDs. Reports hx of aime and depression, though denies any recent episodes. Reports increased reliance on alcohol as a means of coping but recognized this was beginning to become problematic and has been sober for several weeks. Client currently endorses a depressed mood, lack of energy, lack of concentration, lack of motivation, avoidance behaviors, emotional dysregulation, irritability and decreased sleep. Client's symptoms are interfering with his social, occupation, and familial functioning. Goal Relevant Strengths/Supports: Client presents as a kind, intelligent, and motivated to improve his ability to understand and manage intense emotions. Client has shown ability to bounce back from adversity in the past which presents as a protective factor for treatment. Client has strong family support from his parents. Client has been in mental health treatment before and reported it was helpful but that he was not motivated to apply skills learned at the time however feels more motivated to do so now. - Objectives Objective #1 Stated Objective: Client will identify 2-3 anxiety and stress related triggers and 2 healthy coping skills to manage symptoms as shown by decreased DSM-5 cross-cutting score for anxiety. Interventions: Therapist will help client increase awareness of anxiety and stress triggers and educate client on ways stress and anxiety impact overall health. Therapist will teach client various heathy coping skills to manage triggers and prevent further escalation of symptoms. Therapist will assist client in identifying warning signs, triggers, and maladaptive coping skills. Therapist will utilize self-coaching, calming skills, and other CBT techniques to promote anxiety management. Therapist will discuss the benefit of communication and self-awareness on improving anxiety management. Discharge Criteria: Client will have accomplished this goal when can report at least 2 triggers for anxiety and state using 2 healthy strategies to manage symptoms. Additionally, client will have accomplished this goal when her DSM-5 cross-cutting scores show a decrease in anxiety. Target Date: 03/08/19 Review Date: 02/22/19 Problem/Goal #2 - Problem/Goal #2 Stated Goal:: Client will improve mood management and reduce impulsive behaviors, feelings of hopelessness, and anger outbursts due to Bipolar Disorder through Intensive Outpatient Program. Description of Barriers: Client reports history of trauma and difficulties in managing emotions that continues to impact client. Reports from a young age he has learned to suppress his feelings until point of crisis which often results in anger outbursts via verbal outbursts, property damage, and arguments with supports. Client reports his relationship with his has been strained as a result of poor emotion regulation and that they are currently as a result. Indicated that the recent loss of a child to SIDs has had significant impact on his mental health and relationships with supports. Pt reports he is currently living with his mother and stepfather which has been a stressor as he is unable to spend as much time with his children and is commuting further to work. Reports hx of problematic drinking behaviors but has not engaged in such behaviors since prior to IOP admission. Current stressors including; financial stress, lack of social support, family stress, hx of impulsivity, feelings of hopelessness, worthlessness, difficulties managing his emotions, and lack of concentration. Client reports limited awareness of warning signs and triggers. Client endorses numerous distorted thoughts that reinforce mental health symptoms and cause interpersonal relationship issues. Functional Impact: Client is a 28-year-old male with a history of Bipolar, NOS, anxiety, anger management problems, and alcohol use disorder. Client was referred to [facility] by family due to worsening mood symptoms resulting in erratic behaviors, impulsiveness, and increased irritability over the past month. Due to intensity of mood symptoms, pt has been ?kicked out of his house? following an argument with his on 01/17/19 and is now living with his parents. Additionally identified worsening mood symptoms in connection to ongoing grief following the loss of his son in June 2018 to SIDs. Reports hx of aime and depression, though denies any recent episodes. Reports increased reliance on alcohol as a means of coping but recognized this was beginning to become problematic and has been sober for several weeks. Client currently endorses a depressed mood, lack of energy, lack of concentration, lack of motivation, avoidance behaviors, emotional dysregulation, irritability and decreased sleep. Client's symptoms are interfering with his social, occupation, and familial functioning. Goal Relevant Strengths/Supports: Client presents as a kind, intelligent, and motivated to improve his ability to understand and manage intense emotions. Client has shown ability to bounce back from adversity in the past which presents as a protective factor for treatment. Client has strong family support from his parents. Client has been in mental health treatment before and reported it was helpful but that he was not motivated to apply skills learned at the time however feels more motivated to do so now. - Objectives Objective #1 Stated Objective: Client will identify his specific physical and emotional warning signs and triggers for anger and learn at least 2-3 healthy ways to calm and manage anger. Interventions: Therapist will provide sychoeducation on anger via worksheets, educational videos, and individual sessions to increase pt understanding of underlying factors contributing to anger as well as warning signs and triggers commonly associated with irritability. Through individual therapy and group work will help client explore different anger management strategies and tools for increasing self-regulation. Discharge Criteria: Pt will have reached goal when able to identify 2-3 personal warning signs, triggers, and factors impacting ability to regulate emotions and report reduced anger sx due to implementing 2-3 calming and emotion regulation skills. Target Date: 03/08/19 Review Date: 02/22/19 Objective #2 Stated Objective: Client will learn and implement 2-3 effective communication skills during times of conflict to empower client to communicate thoughts and feelings rather than supress emotions or escalate to crisis. Interventions: Therapist will teach client effective communication and conflict resolution skills and will provide homework for client to practice communication skills outside of sessions. Discharge Criteria: Client will have achieved this objective when reports experiencing increased ability to communicate effectively with supports during times of disagreement or conflict without shutting down or escalating to point of crisis.
--- NOTE | 2019-02-25 10:16 | BH.SGPN.GN ---
Behaviors/Verbalizations/Mental Status: []Client alert and oriented, casually dressed and groomed. Eye contact good. Motor activity appropriate. Speech rambling. Affect congruent, mood agitated. Thoughts linear, logical, no signs of hallucinations or delusions. Client Response/Progress/Benefit: []Client active participant as shown by client?s contribution to discussion and helpful insight. Client agreed with peers that self-care is important, and he is learning ?that I?m just on autopilot without it.? Client stated it is hard to make self-care a priority because he always felt like he did not deserve self-care and viewed it as a luxury rather than a necessity. Client participated in the discussion of the common myths about self-care including self-care is selfish, means neglecting and avoiding life, means weakness, is pampering self, and always fun. Client participated in the discussion and debunking of these myths. Client was able to challenge myths that were preventing client from participating in more consistent self-care activities. Client reported he wants to remind himself that self-care is something he needs not just something he wants to do. Client seemed to benefit from increased awareness of the importance of self-care and challenging common myths that prevent clients from making time for self-care. Client showing progress as shown by client?s reduced irritability and use of healthy coping skills outside of IOP. Will continue IOP tx to promote emotional regulation and to further decrease intensity of symptoms. Narrative Note: []
--- NOTE | 2019-02-25 11:16 | BH.SGPN.GN ---
Behaviors/Verbalizations/Mental Status: []Client alert and oriented, casually dressed and groomed. Eye contact good. Motor activity appropriate. Speech within normal limits. Affect congruent, mood euthymic. Thoughts linear, logical, no signs of hallucinations or delusions. Client Response/Progress/Benefit: []Client receptive of session, actively listening and providing good insight to discussion. Willing to complete worksheet activity. Participated as the group further processed the activity and connected with the importance of self-care in maintaining mental health and preventing burn-out. Client completed self-assessment activity on the different areas of self-care and was able to identify current practices he uses and identify areas he can improve upon. Client reported he can improve his emotional, psychological, and spiritual self-care. Client set a goal to improve in the area of emotional and spiritual self-care. Client?s goal is to spend time with his work friends this Friday and to keep track of his progress ?so I don?t dwell on what I?ve done, but I appreciate what I?m doing.? Client shared this would benefit client because he does not often take time for himself and he acknowledges he needs to do this. Client appeared to benefit from increasing awareness of how he can improve his self-care balance. Progress noted as client has been generalizing healthy coping skills which has helped client prevent lashing out. Will continue IOP tx to promote gains and further improve mood stability. Narrative Note: []
--- NOTE | 2019-03-01 09:02 | BH.SGPN.GN ---
Behaviors/Verbalizations/Mental Status: []Client alert and oriented, neatly dressed and groomed. Eye contact fair. Motor activity appropriate. Speech within normal limits. Affect flat, mood dysthymic. Thoughts linear, logical, no signs of hallucinations or delusions. Reviewed client?s symptom tracker, no risk for suicidal ideation, plan, or intent as of 03/01/19. Client Response/Progress/Benefit: []Client responded well to session, attentive and receptive to supportive statements. Client reports feeling ?scattered? today. Client faced a stressor that he has been avoiding since the of his son. Client went to his son?s grave which was the first time he has been there. Client stated although it was triggering and very hard, client was glad he faced it rather than continuing to avoid his feelings. Client stated he was proud of himself because after he visited the grave, he did not cope in unhealthy ways. Client reported in the past he would have drank and isolated, but this weekend he reached out to support and avoided alcohol. Client shared he was glad he had supports, but he was disappointed that his was not one of them. Receptive to emotional support from peers. Appeared to benefit from gaining support and from reflecting on his use of healthy coping skills. Will continue IOP tx to prevent decompensation due to recent trigger.? Narrative Note: []
--- NOTE | 2019-03-01 10:14 | BH.SGPN.GN ---
Behaviors/Verbalizations/Mental Status: []Client alert and oriented, casually dressed and groomed. Eye contact good. Motor activity appropriate. Speech within normal limits. Affect congruent to topic being discussed, mood euthymic, positive. Thoughts linear, logical, no signs of hallucinations or delusions. Client Response/Progress/Benefit: []Pt was an active participant in group discussion. Connected with quote that there are times he has thought he communicated but wasn't clear or specific enough. Pt agreed with peers that texting, tone and non-verbal communication can negatively impact relationships and reinforce mental health symptoms. Group discussed the MH benefits to having open and clear communication with support and providers. Group discussed the barriers that tend to impact clear and open communication which include: making assumptions, communicating with behavior, non-verbal communication, tone of voice, and misinterpretation. Pt stated he is sometimes unsure of how to articulate his feelings or thoughts to others. Pt was attentive during psycho-education on communications styles (aggressive, passive, passive-aggressive, and assertive). Also provided input on the pros and cons to each communication style. Pt seemed to benefit from increased insight on how the way he communicates impacts his mental health. Pt to continue IOP level of care to continue utilization of healthy coping skills, challenge distorted thoughts and prevent decompensation. Narrative Note: []
--- NOTE | 2019-03-01 11:17 | BH.SGPN.GN ---
Behaviors/Verbalizations/Mental Status: [Client alert and oriented, casually dressed and appropriately groomed. Eye contact good. Motor activity appropriate. Speech within normal limits. Affect congruent, mood dysthymic. Thoughts linear, logical, no signs of hallucinations or delusions] Client Response/Progress/Benefit: [Client active participant AEB his positive contributions and engagement throughout. Client reported he is either an aggressive or passive/aggressive communicator and that this has resulted in misinterpretations and relationship tension as a result. Client took an active role during the discussion reviewing different communication styles and why each may be used, as well as how ineffective communication negatively impacts mental health and relationships. Client identified his communication goal which is to practice being more ?self-aware of what type of communication style I am using and ask myself if it is appropriate to the situation and healthy for my mental health?. Client seemed to benefit from increased insight into how his communication style impacts mental health and identifying strategies for increasing effective communication skills. Client progressing as shown by his report of improved management of negative thinking and irritability. Will continue IOP tx to promote mood stability, further improve daily functioning, and prevent decompensation.] Narrative Note: []
--- NOTE | 2019-03-02 09:10 | BH.SGPN.GN ---
Behaviors/Verbalizations/Mental Status: [] Eye contact is good. Motor activity is appropriate. Appearance is disheveled. Speech is Appropriate. Mood is depressed. Affect is flat. Thoughts are linear and logical. No evidence of psychosis. Reviewed daily check in sheet and no reports of suicidal ideations or intent. Client Response/Progress/Benefit: [] Pt was an active participant in group discussion. Emotion for today is gloomy and tired. Shared with the group that he had a very distressful day yesterday which was mainly due to anniversary of his son's . Stated that he felt confused, frustrated, and had difficulties with racing thoughts. Overall it was overwhelming. Insight and awareness and took the day off work. He felt that if he didn't complete some self-care his symptoms would continue to decompensate which would ultimately lead him further into distress. Recognized his mood and took some action by utilizing skills. Thoughts impacting functioning and sleep. He was proud that he was able to work though his distress rather than try to ignore or push through it without taking time for himself. States I could have had thoughts of harming myself but I didn't Progress noted. Benefited from group support, encouragement, and feedback. Will continue in IOP to maintain safety, prevent decompensation, and increase healthy coping skills. Narrative Note: []
--- NOTE | 2019-03-02 10:17 | BH.SGPN.GN ---
Behaviors/Verbalizations/Mental Status: [Client alert and oriented, casual dress, hygiene tended to. Eye contact good. Motor activity appropriate. Speech within normal limits. Affect congruent, mood euthymic. Thoughts linear, logical, no signs of hallucinations or delusions.] Client Response/Progress/Benefit: [Pt engaged in session as evidenced by pt listening during discussion, asking questions, and providing input throughout. Pt stated he believes people run away from problems because fear of the unknown, unwillingness to accept personal fault, and lack of personal awareness. Pt stated he has run away from his problems in the past by avoiding, isolating, exploding, or engaging in unhealthy means of coping to numb himself. He shared that this has led to discouragement and increase fear of addressing personal problems. Pt worked with peers to brainstorm the components of A,B,C,D,E problem solving method and did well to begin to apply such during the group experiential activity, as well as take on a leadership role during such. Pt seemed to benefit from learning about problem solving method and rehearsing problem-solving skills in the moment. Progress noted in ability to connect to personal stressors experienced in own daily life. Pt to continue IOP level of care to decrease mental health symptoms contributing to intrusive thinking and emotion dysregulation, increase utilization of healthy coping, and prevent decompensation.] Narrative Note: []
--- NOTE | 2019-03-02 14:59 | BH.MDN_ITS ---
Multi-Disciplinary Note - Note 45-min Individual Time Started:: 11:36 Date: 03/03/19 Purpose of session/treatment goals addressed:: Purpose of this session was to assess pt current symptoms, stressors, and progress in IOP tx. Another purpose was to discuss a recent trauma trigger and process pt emotions, as well as identify healthy means of coping with increased depressive symptoms as a result of ongoing grief. Eye Contact:: Good Motor Activity:: Appropriate Appearance:: Casual Speech:: Appropriate Mood:: Depressed Affect:: Full Thoughts:: Linear, Logical, No evidence of hallucinations/delusions noted Staff Interventions:: Therapist asked open ended and furthering questions to elicit information regarding pt current symptoms, stressors, and tx goal progress. Provided supportive feedback and empathic responses as pt discussed recent trauma trigger resurfacing ongoing symptoms of grief. Therapist commended pt on ability to identify depression warning signs and avoid engaging in unhealthy coping mechanisms following experience of unexpected grief trigger and increased depressive symptoms. Applied CBT and WI components to aid pt in processing his trauma response and identify means for grieving in healthy ways. Client Response:: Pt receptive of session, acitvely engaged throughout and openly discussed current symptoms and stressors impacting mental health and tx goal progress. Pt shared that he has been struggling over that past several days as he was informed that his son's headstone was placed and he visited the [facility] for the first time since his son's . Pt shared that this had been very difficult for him emotionally but that he is glad he went as he knows he needs to work through his grief and sadness rather than continue to minimize and push his emotions down. Pt discussed feeling overwhelmed and guilty afterwards which resulted in increased temptation to engage in unhealthy coping skills such as drrinking to numb himself fromthe pain. He went on to share that these are the outlets he previously used to avoid eperiencing his grief but instead was able to spend time with a friend and talk to his mom. Pt went on to indicate feeling frustrated by the fact that he cannot control how others choose to process their grief and indicated that his went out drinking with friends over the weekend after visiting the [facility]. Pt did well to empathize and recognize that although he does not approve of how she chose to cope, he cannot control her behaviors. Discussed wanting to talk with her about healthier ways they can both learn to cope. Pt went on to note additional stress related to being at work as this has become increasingly triggering since the reminder of his son's resurfaced. Pt shared he was at work when his son passed and that there are several triggers at work reminding him of the trauma. Remainder of session was spent identifying skills he can use when feeling overwhelmed by grief or depressed. Pt identified that taking a nap or sleeping would make things worse and that being around others would be benefical. Additionally identified that listening to more uplifting music and using positive self-talk statements would decrease depressive sx. Reports plans to discuss with his the option of having a family session to discuss additional support strategies and increase her understanding of pt mental health sx and needs. Risks/Concerns:: No risks or concerns at this time. Pt denies any active SI, plan, or intent as of 03/02/19. Reports increase grief though shared that although he at times has passive thoughts of wanting to be with his son, his other children are his primary reasons for living. Feels able to maintain safety and is willing to reach out to crisis resources if unable to maintain safety at any time. Progress Toward Goals/Plan:: Progress noted. Pt continues to do well to check-in with himself and identify how his thoughts, environment, and stressors are impacting his overall mental health and stability. Pt discussed a recent trauma trigger in which he has experienced increased grief and depressive related symptoms over the weekend. He shared temptations to re-engage in unhealthy coping behaviors such as drinking and isolating however successfully refrained from doing so by reminding himself of the consequences on his mental health and practicing opposite action. Pt indicates concerns that he will decompensate and become overwhelmed by his resurfaced grief though did wel to work with therapist on identifying strategies to cope and prevent decompensating. Pt additionally reports he is willing to begin thinking about seeking out grief specific counseling services. Time Stopped:: 12:16
--- NOTE | 2019-03-03 09:07 | BH.SGPN.GN ---
Behaviors/Verbalizations/Mental Status: [Client alert and oriented, casual dress, hygiene tended to. Eye contact good. Motor activity appropriate. Speech within normal limits. Affect congruent, mood depressed and anxious. Thoughts linear, logical, no signs of hallucinations or delusions. Reviewed client?s symptom tracker, no signs of suicidal ideation, plan, or intent as of today. ] Client Response/Progress/Benefit: [Pt receptive of session and engaged throughout. He did well to actively listen to the group as others shared, as well as openly discuss his own thoughts, feelings, and stressors. Pt reports his current emotion is ?sad? as he experienced a recent grief related trauma trigger and is struggling to overcome associated guilt/depressive sx. Noted difficulties in the workplace as a result as this is also a grief trigger. Discussed thinking about taking FMLA to spend more time focusing on metal health sx as he has noticed a recent decline in overall functioning. Shared mental health wins include getting to IOP group despite wanting to stay in bed and using self-compassion to challenge guilt associated with current difficulties in processing grief. Appeared to benefit from support provided by the group. Progress noted in pt ability to more openly identify warning signs and process emotions rather than continue to minimize. Pt recommended continued IOP tx to continue to prevent decompensation, decrease depression, as well as promote healthy change behaviors, and engage supports in treatment process.] Narrative Note: []
--- NOTE | 2019-03-03 10:25 | BH.SGPN.GN ---
Behaviors/Verbalizations/Mental Status: []Client alert and oriented, casually dressed and groomed. Eye contact good. Motor activity appropriate. Speech within normal limits. Affect constricted, mood dysthymic. Thoughts linear, logical, no signs of hallucinations or delusions. Client Response/Progress/Benefit: []Client attentive and engaged throughout session, providing personal examples of how better managing his emotions has caused better conflict resolution. Worked together with the group to define and identify differences between internal and external conflict. Client stated one?s perspective plays a major role in one?s ability to effectively resolve conflict. Client reported the benefits of addressing conflict included improved relationships and better mental health. Group identified and discussed consequences of not address conflict in healthy ways which included: guilt, negative consequences, poor relationships, staying in one?s comfort zone, and rumination. Attentive during psychoeducation on different conflict styles such as avoiding, accommodating, competing, and collaborative. Benefited as she was able to identify and define conflict as well as increase awareness of how conflict style impacts mental health. Due to recent triggers in client?s life and his worsening symptoms of grief, client will participate in PHP for a week to prevent decompensation. Narrative Note: []
--- NOTE | 2019-03-03 16:02 | BH.DS ---
Discharge Summary - Demographics Date of Admission:: 02/01/19 Discharge Date: 03/03/19 Reason for Discharge:: Due to recent grief related trauma trigger resulting in decompensation of mental health symptoms, increased depression, self-deprecating thoughts, increased urges to engage in high risk behaviors such as problematic drinking, concerns for safety presented by pt supports, as well as self-reported resurgence of passive thoughts of without specific plan or intent, it was determined that client would benefit from more intensive treatment via Partial Hospitalization to maintain safety, increase emotional stability, and prevent need for higher level of care. Client in agreement to begin PHP program tomorrow and is planning to take FMLA from work beginning 03/03/19, as well as begin outpatient grief counseling starting 03/08/19. Client will be discharged from [facility] at this time due to needing more intensive and consistent counseling services and begin PHP program at this time. Client?s additionally in agreement to come in for a family session to discuss treatment plan and ways to support pt mental health treatment moving forward. - Treatment Progress During Treatment & Response: Client discharged from [facility] before completing his treatment goals, though demonstrated consistent progress while in IOP tx until experiencing an unexpected trauma trigger resulting in recent decompensation. Client self-reported lack of knowing how to process and effectively cope with current increase in mental health sx of depression, guilt, and grief. Reports fears he will turn to unhealthy means of coping if he does not begin working to develop new and healthier coping skills for grief and depression management and notes work as a trigger for grief which has impacted decompensation and resulted in feelings of increased agitation and desire to avoid the work environment which may begin to negatively impact progress. Client therefore recommended FMLA to improve internal coping and increase ability to process grief and manage related triggers. While in IOP program, pt demonstrated high levels of engagement during group sessions as client connected with peers and engaged during discussions. Client was receptive to meeting individually and appeared ready to make changes however at times struggled with consistent follow through and second-guessing himself. Throughout client's time in IOP, he continued to endorse self-deprecating thoughts, overwhelming guilt, a depressed mood, difficulty concentrating, and irritability though was beginning to make strides forward in improving management of these symptoms. Issues Still to be Addressed:: Client was discharged from [facility] before completing treatment goals. Client to begin PHP level of care to more appropriately and effectively address current problems including distress tolerance, coping with grief and related trauma triggers, ongoing work to improve emotional regulation skills, maintain safety, and decrease the intensity of mental health symptoms. can also benefit from improving effective communication skills, challenging distortions, identifying personal goals for himself to build confidence, and reducing impulsivity. Discharge Recommendations/Instructions:: Pt to discharge from [facility] tx on this date and is in agreement to begin PHP level of care tomorrow, 03/04/19. Pt additionally recommended to take FMLA from work in order to increase ability to focus on and make strides towards improving mental health needs. Pt recommended to have his come in for a family session while in PHP tx and to begin individual grief counseling as well. Discharge Handout: Complete Discharge Handout with client on aftercare options and continuity of care.
--- NOTE | 2019-03-03 16:17 | BH.COMM ---
Communication Note - Communication with Client Communication Note: Pt called to speak with this therapist about concerns regarding pt safety and recent increase in depressive symptoms following a recent grief related trauma trigger. She discussed with this therapist that pt has been increasingly isolated, making passive comments about not wanting to be alive, and has expressed urges to quit his job since visiting the grave of his son for the first time over the weekend. Noted that pt has not expressed any active SI, plan, or intent at this time but that she fears he will continue to decompensate if not addressed. Therapist indicated plans to follow-up with pt and further assess for safety, as well as discuss options for grief counseling, increasing intensity of treatment services provided through program by moving to PHP level of care should this seem appropriate after further assessment, as well as encourage pt to involve supports in treatment process by scheduling a family counseling session.
--- NOTE | 2019-03-03 16:24 | BH.MDN ---
Multi-Disciplinary Note - Note 60-min Individual Time Started:: 11:32 Date: 03/03/19 Purpose of session/treatment goals addressed:: Assessed current symptoms and recent grief related trauma trigger resulting in increased concern of pt supports, decompensation, and influx in depression related symptoms. Additional purpose was to complete safety/crisis plan. Additional topics included: grief counseling resources Eye Contact:: Good Motor Activity:: Appropriate Appearance:: Casual Speech:: Soft Mood:: Anxious, Depressed Affect:: Congruent Thoughts:: Linear, Logical, No evidence of hallucinations/delusions noted Staff Interventions:: Therapist asked open-ended and furthering questions to elicit information regarding pt current sx, stressors, and barriers impacting tx progress. Assessed for safety and additional risk factors given report of increased mental health sx severity. Provided empathic responses and supportive feedback, as well as commended pt for reaching out for help when recognizing warning signs. Applied [place] techniques to aid pt in identifying healthy change behaviors to improve mental health sx and functioning. Completed crisis safety plan and provided pt with local resources for grief counseling. Client Response:: Pt receptive of meeting with therapist and open to discussing concerns presented by pt regarding her observations of recent increase in isolative behaviors, depression related sx, and reports of passive thoughts of and remarks by pt. He shared that since visiting his youngest son's grave over the weekend he has felt increasingly depressed and overwhelmed with grief. Pt notes that this may have been further exacerbated by returning to work afterwards which is where he recieved the news of his son's and is therefore a major trauma trigger. Pt explained that over the last 4 days he has had increased thoughts of I don't want my son to be alone and If only I had been home instead of at work when it happened. Shared that these thoughts have resulted in increased feelings of hopelessness, fleeting passive thoughts of , and urges to quit his job. Pt went on to clarify that he does not have any plan or intent ot harm himself and that he is not suicidal, but that he has had passive thoughts of being with his son as he fears he is lonely. Pt shared I don't want to , I have too much to live for and I dont want to do that to my kids. He expressed feeling consumed by his grief and fears that he will return to trying to numb his grief related emotions with alcohol and other unhealthy outlets if he does not take action to address these symptoms before they get worse. Pt shared that he feels unable to be in the work environment until improving his mental health coping capabilities as this is a major trauma trigger for him and he has noticed himself becoming increasingly dysregulated when at work over the past few days. Pt and therapsit discussed options for preventing decompensation to include taking FMLA from work to increase intensity of engagement in program any moving from IOP to PHP tx as well as engaging his supports in treatment process, and beginning outpatient grief counseling. Pt agreeable to these recommendation. Remaining duration of session spent completing crisis safety plan for moments he experiences intense grief or passive thoughts of . Pt reports plans to share this safety plan with his and spend time engaging in self-care activities following group for this date. Risks/Concerns:: No immediate risks or concerns. Denies any active suicidal ideations, plan, or intent as of this date 03/04/19, though reports increased urges to engage in impulsive behaviors, as well as passive thoughts of . Pt willing to safety plan and indicates ability to maintain safety at this time. Protective factor is children and his family. Reports willingness to seek crisis services if feeling unable to maintain safety at anytime. Progress Toward Goals/Plan:: Due to recent grief related trauma trigger resulting in decompensation of mental health symptoms, increased depression, self-deprecating thoughts, increased urges to engage in high risk behaviors such as problematic drinking, concerns for safety presented by pt supports, as well as self-reported resurgence of passive thoughts of without specific plan or intent, it was determined that client would benefit from more intensive treatment via Partial Hospitalization to maintain safety, increase emotional stability, and prevent need for higher level of care. Client in agreement to begin PHP program tomorrow and is planning to take FMLA from work beginning 03/03/19, as well as begin outpatient grief counseling starting 03/08/19. Client will be discharged from IOP at this time due to needing more intensive and consistent counseling services and begin PHP program at this time. Client?s additionally in agreement to come in for a family session to discuss treatment plan and ways to support pt mental health treatment moving forward. Client has however made progress in willingness to seek and receptivity of recieving help in managing mental health sx rather than minimizing or avoiding outside help. Pt additionally is improving in overall ability to regulare his emotions and process rather than reacting on impulse. Since beginning IOP program he has consistently made strides in improving use of healthy coping skills, however has experienced difficulties in knowing what skills will be most helpful and went ot utilize them. He is to begin PHP level of care to further improve stability, maintain safety, and prevent decompensation. Time Stopped:: 12:37
--- NOTE | 2019-03-03 16:24 | BH.PSA ---
Development & Family of Origin - Family History Family History: Family History (Last Reviewed 05/06/18 @ 08:42 by Lexie oRth) Brother Asthma Hypertension Grandmother Breast cancer Heart disease Kidney disease Thyroid disorder Mother Thyroid disorder
--- NOTE | 2019-03-04 10:20 | BH.SGPN.GN ---
Behaviors/Verbalizations/Mental Status: []Client alert and oriented, casually dressed and groomed. Eye contact good. Motor activity appropriate. Speech within normal limits. Affect congruent to topic being discussed, mood depressed. Thoughts linear, logical, no signs of hallucinations or delusions. Client Response/Progress/Benefit: []Pt active participant AEB pt providing input throughout discussion and appeared to listen attentively to peers. Pt participated in group discussion regarding mental health benefits of change. Pt identified three small personal changes to improve mental health as: process situation before reacting, improve ability to stay present and mindful, and learn how to challenge self-doubt thoughts. Identified current barriers keeping pt from making those changes to be: fortune telling, judging current situations from past experiences, negative thoughts, and guilt. Pt appeared to benefit from gaining awareness of personal changes that would improve mental health and the barriers keeping client stuck. Progress noted in client level of insight regarding current barriers impacting mental health change. Continue PHP to increase healthy coping skills, improve emotional regulation, and prevent decompensation. Narrative Note: []
--- NOTE | 2019-03-08 11:13 | BH.SGPN.GN ---
Behaviors/Verbalizations/Mental Status: []Client alert and oriented, casually dressed and groomed. Eye contact good. Motor activity appropriate. Speech within normal limits. At times rambling. Affect congruent to topic being discussed, mood dysthymic. Thoughts linear, logical, no signs of hallucinations or delusions. Client Response/Progress/Benefit: []Client responded well to session as evidenced by client listening attentively to others and sharing when prompted. Client identified his warning signs for crisis and gained further awareness of his earliest warning signs. Client recognized that awareness of these warning signs can prevent further crisis and help client utilize healthy coping skills to break the cycle. Client created a crisis action plan to help client better manage warning signs for crisis. Client?s plan included opposite action, calling a friend, identifying consequences of isolation, physical activity, and identifying positives. Client selected tangible items for crisis survival kit that will help him remember these crisis interventions. Client appeared to benefit from creating a crisis action plan and increasing his self-awareness. Client to continue IOP to prevent decompensation, improve emotional regulation, and continue to use healthy coping skills. Narrative Note: []
== END 2019-03-03 13:00 | disposition home or self-care (01) ==
LOC: BHIOP 09:00
PROVIDERS: Family Provider Family Medicine; PCP Family Medicine; Referring Provider Psychiatry & Neurology Psychiatry; Visit Provider Psychiatry & Neurology Psychiatry
DX: F31.9 Bipolar disorder, unspecified (principal); F41.1 Generalized anxiety disorder
CPT/HCPCS: H0035; 90832; 90834; 90837; 90853

== ENCOUNTER 2019-03-04 09:00 | Outpatient (RCR) | payer BC, SELFPAY ==
--- NOTE | 2019-03-04 09:00 | BH.SGPN.GN ---
Behaviors/Verbalizations/Mental Status: []Client alert and oriented, neatly dressed and groomed. Eye contact good. Motor activity appropriate. Speech tangential. Affect flat, mood dysthymic. Thoughts linear, logical, no signs of hallucinations or delusions. Reviewed client?s symptom tracker, no risk for suicidal ideation, plan, or intent as of 03/04/19. Client Response/Progress/Benefit: []Client responded well to session, receptive to supportive statements from peers. Client reports feeling ?surprisingly relieved? today after taking time for self-care. Client recently experienced a grief trigger that has led to increased depressive symptoms for client. Due to this, client has been more tearful and reports ?I?ve been obsessing? over the loss. However, yesterday after group he decided to reach out to work and take FMLA. Client also got his haircut and started cleaning his car which made client feel better. Client shared he recognizes he needs to open up about his grief and deal with it, so he plans to go see a grief counselor at [facility]. Client shared last night was feeling more positive for a while which made client ?anxious I wasn?t grieving.? [employer]isher normalized client?s experience and reminded client that one is allowed to experience positive emotions while grieving. Appeared to benefit from connecting with peers and normalizing his grief. Will continue PHP to prevent decompensation of depressive symptoms and promote mood stability. Narrative Note: []
--- NOTE | 2019-03-04 11:18 | BH.SGPN.GN ---
Behaviors/Verbalizations/Mental Status: [Eye contact is good. Motor activity is appropriate. Appearance is casual. Speech is Appropriate. Mood is dysthymic. Affect is congruent. Thoughts are linear and logical. No evidence of psychosis. ] Client Response/Progress/Benefit: [Pt did well to actively participate in group activity and was well engaged as well as provided input during discussion regarding making positive mental health changes. Pt worked with group members to identify connections between activity and strategies for overcoming barriers to making mental health changes. He noted that fear of failure and negative self-talk can be a barrier to ?turning over a new leaf? in personal life. Pt did well to identify a specific change he would like to make for her mental health, barriers to making that change, and a SMART goal to reach that change. Shared he would like to work on improving ability to remain patient throughout his mental health treatment process advocate by continuing to work on his ability to identify and appreciate small daily areas of progress. Discussed that this change would help to increase hope and self-worth. Pt benefited from working with group to identify strategies to overcome barriers to change and create a plan for implementing one small change promoting personal growth. Pt recommended to continue PHP tx to increase effective communication with supports, decrease depression and improve ability to cope with overwhelming emotions, and prevent decompensation.] Narrative Note: []
--- NOTE | 2019-03-04 14:20 | BH.MDN_ITS ---
Multi-Disciplinary Note - Note 45-min Individual Time Started:: 12:33 Date: 03/04/19 Purpose of session/treatment goals addressed:: The purpose of this session was to assess pt current symptoms and stressors resulting in pt taking FMLA from work and admission to [facility]. Another purpose was to identify and review expectations and mental health areas of focus for [facility] treatment as well as establish treatment goals. Additional topics included: self-esteem building and engaging supports. Eye Contact:: Good Motor Activity:: Appropriate Appearance:: Casual Speech:: Appropriate Mood:: Depressed Affect:: Congruent Thoughts:: Linear, Logical, No evidence of hallucinations/delusions noted Staff Interventions:: Therapist asked open-ended and furthering questions to elicit information regarding pt current sx, stressors, and means for coping sin ce recent influx in mental health symptpoms. Provided empathic responses and supportive feedback as pt processed emotions related to current stressors. Commended pt for making healthy coping choices and applying treatment skills learned to prevent further decompensation and begin improving ability to manage mental heakth sx and stressors. Applied PR techniques to aid pt in identifying potential barriers to progress, mental health treatment goals for [facility], as well as continue to promote healthy change behaviors. Reviewed with pt healthy means for coping with overwhelming emotions and gried. Discussed importance of self-care on mental health management and improving self- confidence levels. Encouraged pt to discuss family therapy with supports. Provided self-confidence building homework. Client Response:: Pt receptive of session and actively engaged throughout. He indicated I'm feeling much better than yesterday and more relieved and went on to attribute improved mood to taking the step to ask for more intensive counseling services as well as taking FMLA from work in order to do so. Pt shared that he discussed his mental health concerns with his employer following individual session on previous date and that this was a positive experience. Indicated that work was supportive and understanding of pt needs to take time off in order to process his grief and work to further improve mental health symptom management. Pt and therapsit discussed goals and expectations for return to work. He expressed wanting to learn to cope with grief triggers in the work place and feel more confident in his ability to cope with unexpected stressors/anxiety prior to return to work. Discussed additional areas of focus for [facility] to include improving overall self-confidence levels and figure out who I am and what I want for my life again...I want to rebuild my relationship with myself. Pt went on to describe spending time going over his safety plan with his and working on the small self-care goals he identified in session on previous day. Expressed that she had responded positively and is interested in becoming more involved in pt treatment progress. Pt open to discussing dates fo ra family session with his as well as his mother in order to better involve supports in care process. Additionally noted setting up individual grief counseling with [facility] to begin Friday03/08/19. Pt went on to reflect that although he is feeling a sense of relief on this date, he continues to fear he will not be able to get back to his baseline and return to work, as well as worries that if he does it will mean he is no longer grieving for his son. Receptive of challenging these thoughts and identifying evidence against them. Pt shared he has always struggled with putting other's needs before his own as he has not ever felt he deserved to take the time for himself. Reflected that this may have contributed to negative self-esteem and self-depricating thoughts. Open to beginning to work on improving self-worth and was receptive of related homework provided in which pt is to identify 5 things he deserves to be able to do for himself such as set boundaries, be happy, or take time for self-care. Risks/Concerns:: No immediate risks or concerns. Denies any suicidal ideations, plan, or intent as of this date 03/05/19. Protective factors is children and his family. Reports ability to maintain safety at this time, is future oriented, and expressed plans to spend time with his children later this afternoon. Progress Toward Goals/Plan:: Progress noted since D/C from IOP level of care and taking steps to begin taking more decisive steps on increasing mental health trinity atment intensity. Client indicates setting up grief counseling and taking FMLA in order to more actively work on grief processing and improving ability to cope with mental health symptoms. Pt did well ot communicate with his regarding his mental health needs and importance of spending time on self-care and self- esteem, as well as desire to involve her in treatment process. Pt notes spending time cleaning his care and completing basic self-care activities which helped to boost self-esteem. Additionally reports working to spend time processing his emotions and thoughts rather than reacting on impulse which has improved irritability and emotion regulation. Pt continues to ruminate on grief related stressors resulting in admission to PHP level of care though with assistance did well to identify this as a protective factor rather than setback. Pt continues to struggle significantly with grief and depressive sx. Will continue in PHP to further address these areas and continue to progress in emotion regulation and depression coping skills. Time Stopped:: 13:11
--- NOTE | 2019-03-04 15:14 | BH.MTP ---
Master Treatment Plan - Patient Information Program Physician:: Dr. Mecca James Primary Therapist:: BRYN Oquendo - Psychiatric Diagnoses Psychiatric Diagnoses:: Bipolar 2 disorder (F 31.81); ADHD; generalized anxiety disorder; history of alcohol use disorder in full remission for 3 years. Diagnosis Code(s):: Bipolar 2 disorder (F 31.81); ADHD; generalized anxiety disorder; history o - Estimated LOS Estimated LOS (in weeks):: 1 Problem/Goal #1 - Problem/Goal #1 Stated Goal:: Client will reduce depression, feelings of hopelessness, and suicidal ideation due to Major Depressive Disorder through Intensive Outpatient Program. Description of Barriers: Client reports history of trauma and difficulties in managing emotions that continues to impact client. Reports from a young age he has learned to suppress his feelings until point of crisis which often results in anger outbursts via verbal outbursts, property damage, and arguments with supports. Client reports his relationship with his has been strained as a result of poor emotion regulation and that they are currently as a result. Indicated that the recent loss of a child to SIDs has had significant impact on his mental health and relationships with supports. Pt reports he is currently living with his mother and stepfather which has been a stressor as he is unable to spend as much time with his children and is commuting further to work. Reports hx of problematic drinking behaviors but has not engaged in such behaviors since prior to [facility] admission. Current stressors including; financial stress, lack of social support, family stress, hx of impulsivity, feelings of hopelessness, worthlessness, difficulties managing his emotions, and lack of concentration. Most recently, sx were exacerbated by pt going to his son?s grave site for the first time and increased tension in the relationship with his leading ton increased emotional instability and more frequent passive thoughts of . Client reports ongoing difficulties awareness of warning signs and triggers. Client endorses numerous distorted thoughts that reinforce mental health symptoms and cause interpersonal relationship issues. Functional Impact: :: Due to recent grief related trauma trigger resulting in decompensation of mental health symptoms, increased depression, self-deprecating thoughts, increased urges to engage in high risk behaviors such as problematic drinking, concerns for safety presented by pt supports, as well as self-reported resurgence of passive thoughts of without specific plan or intent, it was determined that client would benefit from more intensive treatment via Partial Hospitalization to maintain safety, increase emotional stability, and prevent need for higher level of care. Client in agreement to begin PHP program tomorrow and is planning to take FMLA from work beginning 03/03/19, as well as begin outpatient grief counseling starting 03/08/19. Client will be discharged from [facility] at this time due to needing more intensive and consistent counseling services and begin PHP program at this time. Client?s additionally in agreement to come in for a family session to discuss treatment plan and ways to support pt mental health treatment moving forward. Client has however made progress in willingness to seek and receptivity of recieving help in managing mental health sx rather than minimizing or avoiding outside help. Pt additionally is improving in overall ability to regulare his emotions and process rather than reacting on impulse. Since beginning IOP program he has consistently made strides in improving use of healthy coping skills, however has experienced difficulties in knowing what skills will be most helpful and went ot utilize them. He is to begin PHP level of care to further improve stability, maintain safety, and prevent decompensation. Goal Relevant Strengths/Supports: Client presents as a kind, intelligent, and motivated to improve his ability to understand and manage intense emotions. Client has shown ability to bounce back from adversity in the past which presents as a protective factor for treatment. Client has strong family support from his parents. Client has been in mental health treatment before and reported it was helpful but that he was not motivated to apply skills learned at the time however feels more motivated to do so now. - Objectives Objective #1 Stated Objective: Client will work with therapist to develop a ?crisis plan? which includes emergency telephone numbers, 3-4 coping strategies for SI, lists of supports, positive aspects of his/her life, and motivations. Interventions: Therapist will provide patient with safety plan worksheet and work with pt. to develop individualized plan. Therapist will help client identify her triggers and teach client various coping strategies to effectively cope with depressive symptoms. Discharge Criteria: Client will have achieved this goal when he reports no longer experiencing increased SI, has completed a Crisis Safety Plan, and can verbalize and has practiced at least 2 healthy coping strategies. Target Date: 03/12/19 Review Date: 03/12/19 Problem/Goal #2 - Problem/Goal #2 Stated Goal:: Client will reduce anxiety due to Generalized Anxiety Disorder through [facility] services. Description of Barriers: Client reports history of trauma and difficulties in managing emotions that continues to impact client. Reports from a young age he has learned to suppress his feelings until point of crisis which often results in anger outbursts via verbal outbursts, property damage, and arguments with supports. Client reports his relationship with his has been strained as a result of poor emotion regulation and that they are currently as a result. Indicated that the recent loss of a child to SIDs has had significant impact on his mental health and relationships with supports. Pt reports he is currently living with his mother and stepfather which has been a stressor as he is unable to spend as much time with his children and is commuting further to work. Reports hx of problematic drinking behaviors but has not engaged in such behaviors since prior to IOP admission. Current stressors including; financial stress, lack of social support, family stress, hx of impulsivity, feelings of hopelessness, worthlessness, difficulties managing his emotions, and lack of concentration. Most recently, sx were exacerbated by pt going to his son?s grave site for the first time and increased tension in the relationship with his leading ton increased emotional instability and more frequent passive thoughts of . Client reports ongoing difficulties awareness of warning signs and triggers. Client endorses numerous distorted thoughts that reinforce mental health symptoms and cause interpersonal relationship issues. Functional Impact: :: Due to recent grief related trauma trigger resulting in decompensation of mental health symptoms, increased depression, self-deprecating thoughts, increased urges to engage in high risk behaviors such as problematic drinking, concerns for safety presented by pt supports, as well as self-reported resurgence of passive thoughts of without specific plan or intent, it was determined that client would benefit from more intensive treatment via Partial Hospitalization to maintain safety, increase emotional stability, and prevent need for higher level of care. Client in agreement to begin PHP program tomorrow and is planning to take FMLA from work beginning 03/03/19, as well as begin outpatient grief counseling starting 03/08/19. Client will be discharged from [facility] at this time due to needing more intensive and consistent counseling services and begin PHP program at this time. Client?s additionally in agreement to come in for a family session to discuss treatment plan and ways to support pt mental health treatment moving forward. Client has however made progress in willingness to seek and receptivity of recieving help in managing mental health sx rather than minimizing or avoiding outside help. Pt additionally is improving in overall ability to regulare his emotions and process rather than reacting on impulse. Since beginning IOP program he has consistently made strides in improving use of healthy coping skills, however has experienced difficulties in knowing what skills will be most helpful and went ot utilize them. He is to begin PHP level of care to further improve stability, maintain safety, and prevent decompensation. Goal Relevant Strengths/Supports: Client presents as a kind, intelligent, and motivated to improve his ability to understand and manage intense emotions. Client has shown ability to bounce back from adversity in the past which presents as a protective factor for treatment. Client has strong family support from his parents. Client has been in mental health treatment before and reported it was helpful but that he was not motivated to apply skills learned at the time however feels more motivated to do so now. - Objectives Objective #1 Stated Objective: Client will learn and implement 2-3 effective communication skills during times of conflict to empower client to communicate thoughts and feelings rather than suppress emotions or escalate to crisis. Interventions: Therapist will teach client effective communication and conflict resolution skills and will provide homework for client to practice communication skills outside of sessions. Therapist will work with pt to engage his supports in tx process through completion of family/support session. Discharge Criteria: Client will have achieved this objective when reports experiencing increased ability to communicate effectively with supports during times of disagreement or conflict without shutting down or escalating to point of crisis. Target Date: 03/12/19 Review Date: 03/12/19
--- NOTE | 2019-03-05 09:05 | BH.SGPN.GN ---
Behaviors/Verbalizations/Mental Status: [] Eye contact is good. Motor activity is appropriate. Appearance is casual. Speech is Appropriate. Mood is depressed. Affect is full. Thoughts are linear and logical. No evidence of psychosis. Reviewed daily check in sheet and no reports of suicidal ideations or intent. Client Response/Progress/Benefit: [] Pt was an active participant in group discussion. Emotion for today is anxious. Reports of range of emotions including anger, depression, and anxiety. Some cognitive distortions such as mind reading. Relationships stressors. Struggles to manage these emotions and often gets caught catastrophizing. Feels that others are taking advantage of him. Able to identify the importance of utilizing skills such as mindfulness to slow thinking and self-care to help manage stress and anger. Erratic emotions. Labile. Benefited from group support and feedback. Will continue in PHP to maintain safety, increase healthy coping, and improve his functioning. Narrative Note: []
--- NOTE | 2019-03-05 11:25 | BH.SGPN.GN ---
Behaviors/Verbalizations/Mental Status: []Client alert and oriented, neatly dressed and groomed. Eye contact good. Motor activity appropriate. Speech tangential. Affect congruent, mood anxious, dysthymic. Thoughts linear, logical, no signs of hallucinations or delusions. Client Response/Progress/Benefit: []Client responded well to session, engaged throughout and providing ideas during group brainstorming. Client appeared to connect with the activity from second group and helped the group identify benefits of having a strong foundation of internal and external coping skills. Client shared he currently is needing more external support because of the recent grief triggers he has faced. Client realizes this will help him increase internal coping skills as well. Client helped the group discuss the different categories of coping skills and provided examples. Client reported it is important to have a variety of coping skills. Client created a coping skills ?menu? for the five categories of coping skills. Client selected taking time for hobbies, journaling, music, practicing self-compassion, and identifying his distorted thoughts. Client appeared to benefit from increasing his repertoire of healthy coping skills. Progress noted in client?s increased self-awareness and ability to advocate for his mental health. Will continue PHP to prevent decompensation of depressive symptoms. Narrative Note: []
--- NOTE | 2019-03-05 16:39 | BH.MDN ---
Multi-Disciplinary Note - Note 45-min Individual Time Started:: 13:04 Date: 03/05/19 Purpose of session/treatment goals addressed:: The purpose of this session was to assess pt current symptoms, stressors, and treatment goal progress. Additional purpose was to address pt frustrations regarding expectations for his supports, difficulties in communicating mental health his needs, and establish goals for upcoming support session with pt mother and . Eye Contact:: Good Motor Activity:: Appropriate Appearance:: Casual Speech:: Appropriate Mood:: Irritable, Depressed Thoughts:: Linear, Logical, No evidence of hallucinations/delusions noted Staff Interventions:: Therapist asked open-ended questions to elicit information regarding current symptoms, stressors, and tx goal progress. Provided empathic responses and supportive feedback as client discussed frustrations related to feeling invalidated and ignored by his whom pt identifies as his primary support. Therapist gently challenged pt use of distorted thinking patterns and applied CBT approaches to aid pt in challenging and reframing use of emotional reasoning. Reviewed components of effective communication and conflict resolution. Applied [place] concepts to aid pt in identifying goals for upcoming support session with his and mother. Client Response:: Pt receptive of session, engaged throughout. He discussed feeling frustrated today as he reports experiencing difficulties in receiving the desired level of support from his . Pt went on to describe feeling as though he is not a priority as he reports his often gives noncommittal responses to pt requests to spend time discussing his mental health goals or wanting to spend quality together. Pt discussed perceiving this as his concerns being dismissed and viewed as unimportant. Pt expressed ?I know she?s really busy and that she cares, but I just want to know that she is willing to put in the effort to be a consistent support. I mean that?s what supports are supposed to do, be there to support you?. Pt went on to express a desire to cut her out of this part of his life and longer view her as a support; however, did well to recognize this as being absolute thinking and an ?irrational response to my emotions?. He shared knowing this week has been more emotionally difficult for him given recent trauma trigger and expressed that it would be healthier to spend the weekend practicing self-care and reaching out to other supports so that he is able to calm himself and think rationally about his expectations for his supports so this may be discussed in session with his on Friday. Pt continues to make progress in overall ability to recognize when emotional response may not meet intensity of stressor and use calming skills to bring himself back to baseline prior to reacting and responding on impulse. Pt shared plans to spend time with a friend this afternoon and watch a movie to relax instead of continuing to allow himself to ruminate on current frustrations. Risks/Concerns:: No risks or concerns noted. Pt has not indicated experiencing any passive thoughts of since beginning PHP level of care Friday. Denies SI, plan, or intent as of this date 03/05/19. Reports his children as major protective factors, is future oriented, and willing to use local crisis resources should he feel unable to maintain safety at any point over the weekend. Progress Toward Goals/Plan:: Progress noted, refer above. Pt reports no longer experiencing overwhelming grief though continues to struggle with managing grief related sx at times. He indicates feeling more hopeful and has done well to continue utilizing skills consistently. Has some stressors and points of depression and anxiety, however is doing well to remain proactive in managing emotions rather than minimizing or jumping straight to reacting on intial emotional response. [place] like he is struggling with communicating and recieving support from his at times and requested a family session for Friday. Will continue in PHP to maintain safety, prevent decompensation, improve coping skills and use of effective communication strategies, and improve functioning to return to work. Time Stopped:: 13:43
--- NOTE | 2019-03-08 09:05 | BH.SGPN.GN ---
Behaviors/Verbalizations/Mental Status: [Eye contact is good. Motor activity is appropriate. Appearance is casual. Speech is Appropriate rate and tone. Mood is anxious, euthymic. Affect is congruent. Thoughts are linear and logical. No evidence of psychosis. Reviewed daily check in sheet and pt denies any active SI, plan, or intent. ] Client Response/Progress/Benefit: [Pt responded well to session, engaged throughout and open to processing with the group. Pt indicated current emotion as ?excited but nervous? and discussed that this is because he is looking forward to an upcoming family session as well as beginning grief therapy today and is happy to be making these steps but nervous about the unknown. Pt went on to indicate that the Holidays have traditionally been a difficult time for him and often trigger feelings of loneliness, guilt, and shame. He expressed that he would usually resort to drinking alcohol of engaging in other high risk behaviors rather than coping in healthy ways. Pt noted that he was able to make it through the weekend without doing so. He went on to indicate being tempted while in an environment where alcohol was present, but instead reminded himself of the consequences of doing so. Pt did well to identify this as a mental health win and shared using his supports as well as positive self-talk and journaling to do so without engaging in maladaptive coping behaviors. Pt appeared to benefit from support and structure of group environment. Expressed connecting with fellow participants struggling with similar stressors. Pt continues to make progress in reaching out to supports for help when needed and is recommended continued PHP tx to prevent decompensation, decrease depression, and promote ongoing application of healthy internal coping skills.] Narrative Note: []
--- NOTE | 2019-03-08 12:44 | PCM.BH.PN_ITS ---
Progress Note Progress Note: History of Present Illness/Interim History: Patient is a 28-year-old male who is seen in follow-up at the [facility] program. I last saw him 3 weeks ago. He has a history of bipolar disorder and attention deficit disorder. He has been taking his increased Lamictal dose and he states that he feels his mood may be a little more stable. However in the past week or so they obtained the tombstone for his son and he went to the [facility] and this has precipitated a worsening of his depression. His is also called the IOP program and stated that the patient has been much more depressed lately. The patient states that he has some questions and wants to consider starting a new medication. He had looked up Latuda and he is interested in starting it. He will living with his mother but sees his children frequently and is now on [employer] for work. This has helped his progress in the IOP program. His sleep now is about 7 to 8 hours of sleep per night which is an improvement. He denies any suicidal or homicidal ideation. He denies any thoughts of or hallucinations or delusions. Current Psychiatric Medications: [] Lamictal 150 mg p.o. nightly; Vyvanse 70 mg p.o. every morning's Mental Status Examination: [] Diagnoses: [] [employer] I: [] Bipolar 2 disorder (F 31.81); ADHD; generalized anxiety disorder; history of alcohol use disorder in full remission for 3 years. [employer] II: [] [employer] III: [] Deferred GERD [employer] IV:[]] Primary support, housing, financial issues Plan: [] Patient will continue in the IOP program and will be upgraded to [facility] today due to the deterioration in his depression and functioning. He will require a more intense program such as the PHP program in the hopes that the structure, support, education, group and individual therapy will prevent worsening of his symptoms which might require hospitalization. The risks, options, possible side effects and complication of the medication were discussed with the patient and he understands and accepts these. He agrees to take his Latuda with food daily at the same time every day. He felt safe during the interview and if it any time he does not feel safe he will tell us at the IOP program or go to the emergency room. I will see the patient in 1 week for follow-up.
--- NOTE | 2019-03-08 12:49 | BH.DR.ITP ---
Initial Treatment Plan - Patient Information Visit Information: ADMISSION DATE: EXPECTED LOS: 4-6 weeks - Problems/Symptoms Problem #1:: Depression Symptom:: Sadness, rumination, fleeting suicidal ideation, inability to function well Problem #2:: Anxiety Symptom:: worrying, rumination
--- NOTE | 2019-03-08 16:39 | BH.MDN ---
Multi-Disciplinary Note - Note Family Time Started:: 13:00 Date: 03/08/19 Purpose of session/treatment goals addressed:: The purpose of this session was to engage client's and mother, in client's treatment by providing psychoeducation and communicating client's support needs. Another goal was to create a coping plan for client for the upcoming Holiday and review communication strategies. Other topics included cognitive distortions. Eye Contact:: Good Motor Activity:: Appropriate Appearance:: Casual Speech:: Appropriate, Soft Mood:: Anxious, Depressed Affect:: Congruent Thoughts:: Linear, Logical, No evidence of hallucinations/delusions noted Staff Interventions:: Therapist used open-ended questions and active listening to gather information on expectations of pt and his supports for the session. Therapist advocated for client by providing psychoeducation on depression, grief, and bipolar disorder, as well as discussing expectations for progress. Therapist validated both client?s and his supports? emotions and frustrations. Therapist helped the identify areas they could improve upon in order to better support one another and communicate more effectively. Therapist reviewed effective communication strategies for discussing concerns with one another and establishing realistic expectations. Therapist provided psychoeducation on cognitive distortions, and aided pt to develop a safety plan with supports to assist pt with engaging in healthy coping and maintaining during the . Client Response:: Client and his supports, including his and mother, responded well to session and were open to meeting with therapist. Client identified his expectations for session which included wanting to improve communication, clarify expectations and role of his supports, as well as develop a healthy coping plan for the upcoming . Client's and mother also reported a desire to identify ways to encourage client to reach out for help without jumping to extremes of being over reliant or shutting down and feeling like a burden. Client acknowledged that he has struggled with all or nothing thinking and experiencing thoughts of ?no one really cares or wants to be there for me? when attempting to reach out and supports are unavailable. Expressed feeling invalidated or as though he is not a priority at times when his is not available to talk with him about his concerns or stressors. Receptive to psychoeducation from therapist on distorted thinking patterns and impacts on communication. Client?s and mother additionally expressed concerns that over the past 2 weeks he has been exhibiting increased symptoms of depression including isolation, shutting down, and self-deprecating comments. Expressed that this appears to be a pattern for client around the Holiday season. Pt agreed with their observations and indicated that he feels like a burden and has experiencing increased guilt and remorse regarding the impact of his prior aggressive behaviors towards others, specifically his , and feels he does not deserve their support or forgiveness. Client supports did well to reassure client that they are here to support client in improving his mental health, decrease self-deprecation, and better manage his emotions in healthy ways. Client?s expressed a desire to continue to work towards rebuilding trust and develop a healthy friendship while they work to determine the next steps in their marriage. Therapist worked with client and his supports to establish a coping and safety plan for the upcoming iday which included talking with his supports, limiting time spent around other?s who are drinking, spending time journaling to find emotional release, and taking walks when needing a break from the environment. Therapist reminded client and his supports that progress takes time and that healing from the past will be an ongoing process for both client and his supports. Risks/Concerns:: Client denies any suicidal ideations, plan, or intent as of 03/08/19. Future oriented throughout session. Progress Toward Goals/Plan:: Progress noted per pt and pt's supports since entering program. Improved awareness, anger mgmt, and communication. Pt needs to continue to work on anger mgmt specifically identifying warning signs and developing healthy strategies for coping when expectations are not met or pt is faced with unexpected changes. Plan is for pt to continue in PHP to maintain gains and improve healthy coping, as well as prevent decompensation. Pt to begin grief counseling this weekend. Recommended to begin marriage therapy as well. Time Stopped:: 14:11
--- NOTE | 2019-03-09 09:15 | BH.SGPN.GN ---
Behaviors/Verbalizations/Mental Status: []Client alert and oriented, neatly dressed and groomed. Eye contact good. Motor activity appropriate. Speech tangential and rambling. Affect congruent, mood euthymic. Thoughts linear, logical, no signs of hallucinations or delusions. Reviewed client?s symptom tracker, no risk for suicidal ideation, plan, or intent as of 03/09/19. Client Response/Progress/Benefit: []Client responded well to session, interrupting at times, but receptive to feedback and providing supportive statements. Client reports feeling ?optimistic? today. Client shared yesterday he went to grief counseling and it was a positive experience. Client stated the grief counselor helped client ?turn my lens around? which prompted client to think differently. Client stated another mental health win was that he had a family session yesterday and his and mother gave him feedback and ?I didn?t get aggressive.? Client reported he was able to get positives out of the situation instead of shutting down and beating himself up for things. Client shared he has been trying to challenge his thinking patterns. Client?s stressor today is that tomorrow is the anniversary of his self-harm date three years ago. Client shared he was not really worried about it until his mother and said something to him. Client recognizes he can benefit from having structure in his day and reaching out to his supports. Appeared to benefit from connecting with peers and reflecting on his positives. Will continue PHP tx to prevent decompensation and improve use of healthy coping skills. Narrative Note: []
--- NOTE | 2019-03-09 10:29 | BH.SGPN.GN ---
Behaviors/Verbalizations/Mental Status: [Client alert and oriented, casually dressed and groomed. Eye contact good. Motor activity appropriate. Speech within normal limits. Affect congruent, mood anxious and euthymic. Thoughts linear, logical, no signs of hallucinations or delusions] Client Response/Progress/Benefit: [Pt receptive to session, provided input and actively listening throughout discussion on stress. Able to brainstorm with the group positive and negative aspects of stress on physical and mental health. Pt participated in identifying current stressors impacting mental health. Pt's current stressors include: the holidays, isolating/avoidance, difficulties adjusting to the unknown, , limited self-control skills, other?s actions/behaviors, isolation, and relationship with his . Pt noted that his most significant stressors are currently isolation and fixating on the relationship with his . associated with current He indicated that this feels mostly out of his control but that he is able to begin controlling how he responds to the relationship stressor. Appeared to benefit from gaining awareness of own current stressors and learning about the impact stress has on overall wellbeing. Progress noted in improved engagement in group and awareness of stressors impacting mental health as well as willingness to challenge distorted thoughts associated. Recommended continued PHP tx to improve emotion regulation and depression symptom management, improve utilization of healthy coping, and prevent decompensation.] Narrative Note: []
--- NOTE | 2019-03-09 11:05 | BH.MDN_ITS ---
Multi-Disciplinary Note - Note 30-min Individual Time Started:: 12:49 Date: 03/09/19 Purpose of session/treatment goals addressed:: Purpose of this session was to assess current symptoms, stressors, and progress treatment goal progress. Another purpose was to identify strategies for improving internal coping skills for pt to use in times in which supports are unavailable. Eye Contact:: Good, Intense Motor Activity:: Appropriate Appearance:: Casual Speech:: Pressured Mood:: Anxious, Irritable, Depressed Affect:: Full Thoughts:: Linear, Logical, No evidence of hallucinations/delusions noted Staff Interventions:: Therapist asked open-ended questions to elicit information regarding current symptoms, stressors, and tx goal progress. Provided empathic responses and supportive feedback as client processed family session from previous date and discussed frustrations related to ongoing frustrations with supports. Therapist gently challenged pt use of distorted thinking patterns. Applied CBT and [place] concepts to elicit change behaviors, aid pt in identifying impacts of current relationship on mental health, and improve internal coping skill repertoire. Client Response:: Pt receptive of session, willing to meet with therapist, and actively engaged throughout. Discussed feeling glad he had the family support session on previous date as he was able to gain some important insights regarding impact of past trauma and his relationship with his father on his mental health and ability to communicate with others. Shared that he agreed with observations made by his supports regarding this. Pt went on to discuss wanting to work on improving overall self-worth as he feels this contributes to feelings of guilt, desire to avoid/isolate, feeling like a burden, and over relience on external supports. Pt disussed continuing to desire emotional support from his , however is beginning to question whether she is able to do so. Noted knowing that his past aggressive behaviors have impacted her ability to trust him and created additional barriers to the health of their relationship. He went on to note that despite being able to understand how his past behaviors may impact her trust levels or at times be a truama trigger to her, he continues to struggle with frustrations in the level of support she provides to him. Pt expressed wanting clarification as to whether or not he can rely on her for emotional support and encouragement. Shared that he would be okay with whatever she decides but that he would like to know either way as the lack of clarity is becoming toxic to his mental health, sending mixed messages, and creating additional resentment. Expressed feeling invalidated when she is unavailable. Pt did well to identify that he often relies primarily on support from his and mother as he has not developed many healthy internal coping mechanisms and is no longer engaging in past maladaptive behaviors. Showed insight regarding maintenance of depressive cycle, especially at night, as a result of limited internal resources. Pt noted a desire to begin working on this. Spent remainder of session discussing strategies pt could use to manage emotions independently or when unable to rely on supports. Pt identified that he finds journaling to be benficial. Additionally discussed that muriel-on activities are most effective in being able to get out of his own head and reduce rumination by engaging in more minful activities. Shared he used to skateboard and would like to get back involved in this. Additionally discussed that improving self-worth would increase confidence in his ability to cope on his own. Receptive of homework to write a letter of gratitude to himself to have as a resource when struggling with self-defeating thoughts. Risks/Concerns:: Pt reports decreased passive thoughts of not wanting to hurt anymore. Indicates following safety plan created, and denies active SI, plan, or intent as of this date 03/09/19. Progress Toward Goals/Plan:: Progress noted. Insight that urge to rely solely on others as primary means for coping could continue to lead to conflicts in relationships, negatively impact self-confidence when feeling rejected by supports, and increase urges o engage in maladaptive coping mechanisms. Self- esteem and overall mood appear to be dependent on others (i.e. his ability to help others). Due to ongoing tension in relationship with his , this perhaps impacted his overall self-esteem and led to recent decompensation. Increased insight. Will continue in PHP to prevent decompensation and continue to stabil ize mood. Time Stopped:: 13:19
--- NOTE | 2019-03-09 11:30 | BH.SGPN.GN ---
Behaviors/Verbalizations/Mental Status: []Eye contact good. Motor activity is appropriate. Appearance is casual. Speech is appropriate rate and tone. Mood is dysthymic and anxious. Affect is congruent with mood. Thoughts are linear and logical. No evidence of psychosis. Client Response/Progress/Benefit: []Pt engaged in session as evidenced by pt listening attentively to others, giving ideas during activity, and providing input throughout session. Pt worked with the group to complete the challenge activity. Pt reported feeling anxious during the activity, but was able to take a short break and use thought challenge skills to manage emotions. Pt actively listening during discussion about the 4 A's of managing stress. Identified he will focus on decrease isolation and increasing trust with others by altering his approach to coping with current stressors. Pt stated he wants to start asking for help, instead of shutting down. Pt seemed to benefit from increased awareness of the impact of stress on mental health and increasing repertoire of stress management strategies. Pt to continue in IOP to prevent decompensation, increase utilization of healthy coping skills, and challenge distorted thoughts. Narrative Note: []
--- NOTE | 2019-03-10 09:00 | BH.SGPN.GN ---
Behaviors/Verbalizations/Mental Status: [] Eye contact is good. Motor activity is appropriate. Appearance is disheveled. Speech is Appropriate. Mood is anxious. Affect is congruent. Thoughts are linear and logical. No evidence of psychosis. Reviewed daily check in sheet and no reports of suicidal ideations or intent. Client Response/Progress/Benefit: [] Pt was an active participant in group discussion. Emotion for today is weird and existing. Shared with the group an interaction that he had yesterday with increased his anger and lead to an argument. Discussed the details of the event. Insight into his role in the argument. He noted that he was proud of himself as he was able to utilize anger mgmt skills which helped him to de-escalate. He choose to walk away from the argument rather than to engage. Shared that benefits of that decision and believes that in the past he would not have been able to regulate his mood. Did ruminate on the interaction throughout the night and vented to his mother. Group provided feedback, support, and encouragement which was helpful. Progress noted per pt report. Insight that as he reflects he could have managed the situation better however was able to walk away rather than engage. Will continue in PHP to maintain safety, stabilize mood, and increase healthy coping. Narrative Note: []
--- NOTE | 2019-03-10 11:00 | BH.SGPN.GN ---
Behaviors/Verbalizations/Mental Status: []Client alert and oriented, neatly dressed and groomed. Eye contact good. Motor activity appropriate. Speech rambling. Affect congruent, mood anxious. Thoughts linear, logical, no signs of hallucinations or delusions. Client Response/Progress/Benefit: []Client responded well to session, attentive and engaged throughout session. Group discussed the mental health benefits of recognizing strengths which included; improved self-esteem, better coping skills, more willingness to change, and increased resilience. Group identified the barriers that have prevented them from acknowledging their strengths and successes. These barriers included; negative thoughts, minimization, invalidation, and one?s environment. Group identified strategies to overcome barriers that prevent them from seeing strengths. These strategies included; keeping track of progress, practicing self-reflection, practicing self-compassion, and challenging distortions. Client able to identify personal strengths he possesses which included; humor, persistence, common sense, fairness, and ambition. Appeared to benefit from recognizing personal strengths and identifying strategies to overcome barriers. Will continue PHP tx reduce depression and increase use of healthy coping skills. Narrative Note: []
--- NOTE | 2019-03-10 12:10 | BH.MDN_ITS ---
Multi-Disciplinary Note - Note 45-min Individual Time Started:: 10:04 Date: 03/10/19 Purpose of session/treatment goals addressed:: Purpose of this session was to assess current symptoms, stressors, and treatment goal progress. Another purpose was to identify strategies for continued application of emotion regulation skills, as well as means for setting boundaries within toxic relationships. Eye Contact:: Good, Intense Motor Activity:: Appropriate Appearance:: Casual Speech:: Appropriate Mood:: Anxious, Dysthymic Affect:: Congruent Thoughts:: Linear, Logical, No evidence of hallucinations/delusions noted Staff Interventions:: Therapist asked open-ended questions to elicit information regarding current symptoms, stressors, and tx goal progress. Provided empathic responses and supportive feedback as client discussed recent insights and ongoing frustrations with supports. Therapist commended pt use of emotion regulation skills and ability to calm himself when triggered. Provided psychoeducation on boundaries and aided pt in completing decisional balance related to establishing firmer boundaries with unhealthy supports. Applied [place] techniques to continue to promote healthy change behaviors and improve internal coping skill repertoire. Client Response:: Pt requested meeting with this therapist prior to second PHP group for the day. Appearing anxious and noted I know I won't be able to focus if I don't talk this out right now. Pt went on to discuss an incident with his [id number] occurring on previous night. Explained that his [id number] had overheard pt venting to his mother about frustrations with his . Shared that normally he would have become escalated to point of outburst and physical agression, however was able to recognize warning signs and utilize healthy regulation skills instead. Shared he recognized needing to remove himself from the environment and went to his mother's house to calm down. Did well to identify this as progress in improved anger management and decreased use of p ersonaliation. Expressed beginning to think more about whether or not his is a health support for him and indicated feeling that she only wants to maintain the relationship to have pt help with household responsibilities and finances, but is not interested in providing emotional support. Pt expressed I want her to know that I care and am there to support her if she is struggling and needs someone to talk to, but I think that I need to have some distance and set a boundary for my own mental health. Shared that completing the self- gratitude letter helped to increase insight regarding the unhealthy effects of the relationship on his mental health and preventing progress. Went on to indicate anxiety about establishing new boundaries as he does not want to mess up the holidays for the kids and is unsure how to go about establishing firmer boundaries. Pt and therapist discussed the pro's and con's of establishing firmer boundaries with and whether or not to wait to have the conversation about doing so until after the Thanksgiving holiday. Expressed wanting to take time to consider what he is okay with regarding the relationship and discuss this in session after the holiday as well as strategies for effectively communicating his boundaries in a calm way. Remainder of session spent reviewing skills pt may utilize to cope with feelings of loneliness/depression over the holidays. Pt indicated that he would be interested in doing things like completing a puzzle, working on logic/brain games, or doing a crossword to occupy himself and reduce rumination. Risks/Concerns:: Pt reports increased application of distress tolerance skills. Indicates following safety plan created, and denies active SI, plan, or intent as of this date 03/10/19. Progress Toward Goals/Plan:: Progress noted. Insight that pt current relationship may be unhealthy and creating increased rumination/stress. Discussed a desire to implement healthier boundaries and begin working on focusing on improving personal relationship with himself. Pt completed self- gratitude letter assigned as homework in previous session and noted the helped him to identify areas he has made progress, increase confidence levels, and reduce depression. Self reports increased emotion regulation, decreased irritability, and improved use of distress tolerance skills. Will continue in PHP to prevent decompensation, increase self-confidence and ability to apply internal coping skills, as well as continue to stabilize mood. Time Stopped:: 10:45
--- NOTE | 2019-03-12 08:16 | BH.DS_ITS ---
Discharge Summary - Demographics Date of Admission:: 03/04/19 Discharge Date: 03/12/19 Presenting Problems at Admission:: Pt is a 28 year old male with a history of bipolar disorder NOS, depression, ptsd, and alcohol abuse, mild, in remission. He was originally referred to the [facility] program due to ongoing difficulties with functioning at baseline since the loss of his son to Sudden Syndrome in June. At that time, Pt was experiencing difficulties with r egulating his emotions, specifically that of anger, increased depression, isolation, and increased relationship tension. Pt was then admitted to the [facility] level of care following a recent grief related trauma trigger. Following this event,Pt exhibited a decompensation of mental health symptoms, increased depression, self-deprecating thoughts, increased urges to engage in high risk behaviors such as problematic drinking, concerns for safety presented by pt supports, as well as self-reported resurgence of passive thoughts of without specific plan or intent. Given the significant increase in Pt mental health symptoms, it was determined that client would benefit from more intensive treatment via Partial Hospitalization to maintain safety, increase emotional stability, and prevent need for higher level of care. Client in agreement to [facility] program and is taking FMLA from work which began on 03/03/19. Pt additionally recommended to begin outpatient grief counseling starting 03/08/19. Discharge Diagnoses:: Bipolar 2 disorder (F 31.81); ADHD; generalized anxiety disorder; history of alcohol use disorder in full remission for 3 years. Reason for Discharge:: Client has made progress while in [facility] as shown by her reduced depression, no longer reports experiencing any SI, increased emotion regulation skills, accomplishment of treatment goals, and report of using coping skills. Client to step down to [facility] level of care to further promote mood stability and reduce symptoms. - Treatment Progress During Treatment & Response: Client responded well to [facility] treatment as he was an active participant in both group and individual sessions. Client was consistent with completing homework, engaged in daily self-reflection exercises, and reported actively using healthy coping skills outside of group. Client continues to demonstrate motivation to improve his mental health and functioning which is further evidenced by Client taking steps to begin grief counseling, taking FMLA from work to increase investment in mental health treatment, and remaining actively engaged in the group setting. Client was receptive to learning new skills and increasing self-awareness. He has had a family session during [facility] and reported it helped improve their communication and better establish boundaries in the relationship. Client has demonstrated significant progress during PHP as client reports reduced depression and agitation, increased self-awareness, and better communication and ability to apply healthy coping and distress tolerance skills at home. Client stated he has been working on challenging negative thoughts and addressing conflict in healthy ways rather than jumping head first into it. Client continues to struggle with anger, negative core beliefs, and depression symptoms which he will continue to address during IOP. Issues Still to be Addressed:: Client has made strides towards progress during his time in PHP, but can continue to increase healthy coping skills to manage depression,grief, anger, and negative thinking. Client would like to reduce use of unrealistic expectations and negative thinking patterns, increase use of variety of supports, and maintain stability. Client wants to continue to work on improving his relationship with his , motivation, and communication skills. Client would also like to increase self-esteem and combat negative core beliefs. Discharge Recommendations/Instructions:: Recommended to step down to IOP level of care to maintain gains, prevent decompensation, and further stabilize mood. Client reports reduced depression and improvement with managing mental health symptoms. Client would benefit from continued support, increased coping skills, and emotional regulation practice. Discharge Handout: Complete Discharge Handout with client on aftercare options and continuity of care.
--- NOTE | 2019-03-12 09:05 | BH.SGPN.GN ---
Behaviors/Verbalizations/Mental Status: []Client alert and oriented, neatly dressed and groomed. Eye contact good. Motor activity appropriate. Speech rambling, tangential. Affect constricted, mood dysthymic. Thoughts linear, logical, no signs of hallucinations or delusions. Reviewed client?s symptom tracker, no risk for suicidal ideation, plan, or intent as of 03/12/19. Client Response/Progress/Benefit: []Client responded well to session, interrupting at times, but also receptive. Client reports feeling ?tired and lazy? today due to the business of the holiday yesterday. Client reported conflicting emotions about the holiday yesterday. Client shared he was able to make it through the day without drinking which was positive and he was able to have some ?happy moments.? However, client stated he had many negative thoughts throughout the day which made him second guess the benefits of using healthy coping skills. The group helped client see the benefits of not drinking yesterday and client was able to acknowledge how this will support future progress. Client stated another mental health win today was that he continues to practice self-awareness and practice the coping skills discussed in group. Client?s stressor is that he is having a hard time processing his emotions and grief. Client shared he now realizes how much he numbed himself in the past. Appeared to benefit from connecting with peers and challenging negative thoughts. Progress noted as client did not revert to using unhealthy coping skills this weekend, but he can continue to reduce his depressive symptoms. Narrative Note: []
--- NOTE | 2019-03-12 10:10 | BH.SGPN.GN ---
Behaviors/Verbalizations/Mental Status: []Client alert and oriented, casually dressed and groomed. Eye contact good. Motor activity appropriate. Speech within normal limits. Affect constricted, mood dysthymic. Thoughts linear, logical, no signs of hallucinations or delusions. Client Response/Progress/Benefit: []Pt was an active participant in group activity and discussion. Shared insight on quote of the day. Group worked together to define goals and identify the benefits of developing goals which included: sense of purpose, can measure progress, learn from goals, keeps you moving forward, increases confidence, and increases motivation. Group also identified barriers to setting and accomplishing goals which include: no motivation, self-doubt, depression, feeling lost, and unrealistic expectations. Attentive during education on developing SMART goals. Pt reported goals are important so you can move forward in life and better ourselves. Pt stated without goals he feels lost and exasperates depressed symptoms. Benefited from increase awareness of goal-setting methods. Will continue in IOP to prevent decompensation, challenge distorted thoughts, and improve emotional regulation. Narrative Note: []
--- NOTE | 2019-03-12 11:11 | BH.SGPN.GN ---
Behaviors/Verbalizations/Mental Status: [Client alert and oriented, casually dressed and fair groomed. Eye contact good. Motor activity appropriate. Speech within normal limits. Affect congruent, mood anxious and euthymic. Thoughts linear, logical, no signs of hallucinations or delusions. ] Client Response/Progress/Benefit: [Pt attentive throughout, contributed thoughts to discussion and provided supportive feedback to fellow participants. Engaged in creating own mental health SMART goal. Pt identified goal is to decrease negative outlook by identifying 3-4 ?wins? or positive steps towards progress daily over the next week. Pt reported this goal will benefit him by decreased feeling defeated or overwhelmed. Pt identified potential barriers to accomplishing goal to include: lack of motivations, impatience, low self-confidence, and high-expectations. Pt reported he will overcome barriers by identifying realistic positive affirmations he can believe, practice grounding/mindfulness skills, reminding himself ?baby steps are acceptable?, and that he deserves to be happy. Seemed to benefit from identifying a SMART goal and coming up with strategies to overcome potential barriers. Pt to continue IOP to increase consistent application of healthy coping skills, decrease depression, maintain gains, and prevent decompensation.] Narrative Note: []
--- NOTE | 2019-03-12 16:34 | BH.MDN_ITS ---
Multi-Disciplinary Note - Note 30-min Individual Time Started:: 12:21 Date: 03/12/19 Purpose of session/treatment goals addressed:: Purpose of this session was to assess current symptoms, stressors, and progress towards treatment goals. Another purpose was to discuss ways for pt to increase self-confidence levels and individuality. Additional topics included: boundaries with supports, IOP treatment goals. Eye Contact:: Good, Intense Motor Activity:: Appropriate, Restless Appearance:: Casual Speech:: Pressured Mood:: Euthymic, Anxious Affect:: Full, Congruent Thoughts:: Linear, Logical, No evidence of hallucinations/delusions noted Staff Interventions:: Therapist asked open-ended and furthering questions to elicit additional information regarding pt current symptoms, stressors, and treatment goal progress. Provided feedback and encouragement as pt processed coping strategies used to maintain emotional stability throughout family events during the recent holiday. Therapist commended pt on refraining from reverting back to maladaptive coping skills and utilized [place] techniques to elicit change behaviors. Client Response:: Pt receptive of session, engaged throughout, though indicated feeling ?a little all over the place?. He attributed this to readjusting to his regular schedule being changed due to the . Pt went on to describe feeling proud of himself for making it through the various family events yesterday without drinking alcohol or engaging in other maladaptive coping mechanisms. He shared that he had been faced with several triggers which included: others drinking alcohol in front of him, unexpected changes in plans resulting in his supports becoming more agitated, miscommunication, and ongoing grief. Pt expressed using a variety of healthy coping skills to remain calm and prevent escalating to point of crisis. Pt shared that he was able to identify when becoming triggered and took a walk outside, talked to supports other than his , and used thought challenging techniques to reframe distorted thoughts as they occurred. Pt continues to report difficulties in establishing healthy boundaries with his as he shared wanting to rely less on her and increase his ability to accept that they may not be able to work out the marriage, but additionally struggles with a desire to keep her as a support in his life. Insight that decreasing reliance on her as a support would help in adjusting to change in relationship dynamics and increase own self-worth. Open to completing a writing exercise exploring boundary expectations over the weekend. Pt identified plans to spend time with other supports this weekend and expressed intending to limit communication with his to only discussing childcare or finance related needs. Pt and therapist spent remainder of session reviewing strategies for him to improve confidence and application of self-care. Pt identified need to take time for basic needs and hygiene, spend time skateboarding this weekend, and continued journaling as skills he may use for improving in these areas. Risks/Concerns:: Pt denies active SI, plan, or intent as of this date, 03/12/19. Progress Toward Goals/Plan:: Progress noted. Insight that urge to maintain romantic aspect of his relationship could have impacted ability to set and maintain boundaries in the past. Self-esteem and overall mood appear to be improving AEB pt report and increased use of positive self-talk throughout session. Continued difficulties in mood management when faced with unexpected changes, however is improving in this area and reports not escalating to point of angry outburst or aggression in several weeks. Denies active SI, plan, or intent since beginning PHP. Will step down to IOP level of tx next week given s tability, improved mental health sx, and increased application of emotion regulation skills. Time Stopped:: 12:51
== END 2019-03-13 23:59 ==
LOC: BHPHP 09:00
PROVIDERS: Family Provider Family Medicine; PCP Family Medicine; Referring Provider Psychiatry & Neurology Psychiatry; Visit Provider Psychiatry & Neurology Psychiatry
DX: F31.81 Bipolar II disorder (principal); F90.9 Attention-deficit hyperactivity disorder, unspecified type; F41.1 Generalized anxiety disorder; Z79.899 Other long term (current) drug therapy; F10.21 Alcohol dependence, in remission
CPT/HCPCS: H0035; 90832; 90834; 90853; G0410

== ENCOUNTER 2019-03-15 09:00 | Outpatient (RCR) | payer BC, SELFPAY ==
--- NOTE | 2019-03-15 09:04 | BH.SGPN.GN ---
Behaviors/Verbalizations/Mental Status: [Eye contact is good. Motor activity is appropriate. Appearance is casual. Speech is Appropriate rate and tone. Mood is euthymic. Affect is congruent. Thoughts are linear and logical. No evidence of psychosis. Reviewed daily check in sheet and pt denies any active SI, plan, or intent. ] Client Response/Progress/Benefit: [Pt responded well to session, engaged throughout open to processing with the group. Pt indicated current emotion as ?exhausted? and discussed that this is due to difficulties in slowing down his brain enough to fall asleep last night. Indicated that this was not due to ruminating, and that he is not concerned it will be an ongoing issue. Did well to challenge himself to identify mental health wins which included spending time with supports he has not reached out to in a long period of time rather than isolating. Noted this made him feel more connected with himself and others as a result. Additional win noted as being open to his father reaching out to him despite the relationship being strained. Expressed applying positive self-talk statements in order to challenge use of distorted thinking patterns. Receptive of feedback provided by group and appearing to benefit from support and structure of group environment. Pt progress in self report of increasing use of self-care as well as expanding social support network. Pt recommended continued IOP tx to prevent decompensation, decrease depression and anxiety, and promote ongoing application of healthy coping skills.] Narrative Note: []
--- NOTE | 2019-03-15 10:15 | BH.SGPN.GN ---
Behaviors/Verbalizations/Mental Status: [] Eye contact is good. Motor activity is appropriate. Appearance is casual. Speech is Appropriate. Mood is anxious. Affect is congruent. Thoughts are linear and logical. No evidence of psychosis. Client Response/Progress/Benefit: [] Pt was an active participant in group discussion and activity. Worked with peers to identify and define pitfalls in mental health. Group identified several definitions which included; something that you continuously fall into, engaging in choices that keep us stuck, unexpected dangers, and unforeseen difficulty. Attentive on psycho-education on the impact of how one bakari with or manages pitfalls in regards to mental health. Group worked together to identify what keeps us stuck or vulnerable to pitfalls which included; decreased self-awareness, poor self-esteem, unhealthy coping, negative thoughts, being comfortable in the pitfall, fear of change, and self-sabotage. Benefited from increased awareness on the impact that pitfalls can have on mental health. Narrative Note: []
--- NOTE | 2019-03-15 11:18 | BH.SGPN.GN ---
Behaviors/Verbalizations/Mental Status: []Client alert and oriented, neatly dressed and groomed. Eye contact good. Motor activity appropriate. Speech tangential. Affect congruent, mood euthymic. Thoughts circular, no signs of hallucinations or delusions. Client Response/Progress/Benefit: []Client receptive of session, engaged throughout AEB client contributing during group discussion. Processed activity with group and connected it to overcoming personal pitfalls in life. Client completed a worksheet where he identified personal pitfalls impacting mental health progress. Identified pitfalls as: blaming himself, blaming others, negative self-talk, dwelling, and feeling discouraged. Client recognized that with awareness and use of healthy coping skills, it is possible to prevent or better manage pitfalls. Client reflected on his progress and shared that he has less pitfalls than he did when he started the program. Attentive during psychoeducation on strategies to overcome pitfalls. Client stated he will work on preventing pitfalls by practicing positive self-talk more regularly. Benefited from identifying personal pitfalls and strategies to overcome these pitfalls. Progress noted as client reports reduced depressive symptoms. Will continue IOP tx to promote mood stability and further improve daily functioning. Narrative Note: []
--- NOTE | 2019-03-17 09:05 | BH.SGPN.GN ---
Behaviors/Verbalizations/Mental Status: [] Eye contact is good. Motor activity is appropriate. Appearance is casual. Speech is Appropriate. Mood is depressed. Affect is full. Thoughts are linear and logical. No evidence of psychosis. Reviewed daily check in sheet and no reports of suicidal ideations or intent. Client Response/Progress/Benefit: [] Pt was an active participant in group discussion. Emotion for today is concerned. Shared with the group that he attended a luminary for his son yesterday. Briefly described the event to the group. He reports that it caused intense emotions yesterday and today however I'm glad that I went. He did not want fear to keep him from following through. Emotions have been up and down. Continuing to deal with conflict with and visitation with his children. Insight and understanding of his and her families actions and concerns, however he is having trouble having others tell me when I can see my kid. Group provided feedback on radical acceptance which was beneficial. Progress noted per pt report. Will continue in IOP to maintain safety, stabilize mood, increase functioning, and improve functioning to return to work. Narrative Note: []
--- NOTE | 2019-03-17 10:20 | BH.SGPN.GN ---
Behaviors/Verbalizations/Mental Status: []Client alert and oriented, neatly dressed and groomed. Eye contact good. Motor activity appropriate. Speech within normal limits. Affect congruent, mood euthymic. Thoughts linear, logical, no signs of hallucinations or delusions. Client Response/Progress/Benefit: []Client responded well to session, actively contributing to discussion. Client appeared to connect with the topic of fear of failure. Client stated failure can eventually lead you to success if one is able to see failing as a learning experience. Client shared he has been able to learn from his mistakes during IOP and that has helped client be more compassionate with himself. Client reported if one only focuses on past failures and mistakes it can lead to negative thinking and giving up. Group identified the impacts of fear of failure on mental health which included: not trying, low self-esteem, depending too much on others, avoidance, hopelessness, and increased mental health symptoms. Client agreed with peers that in order to move past failure it is important to challenge one?s perspective on failure. Client seemed to benefit from increased awareness of how fear of failure can impact mental health. Client to continue IOP tx to promote use of healthy coping skills, further decrease depressive symptoms, and improve mood stability. Narrative Note: []
--- NOTE | 2019-03-17 11:21 | BH.SGPN.GN ---
Behaviors/Verbalizations/Mental Status: [Client alert and oriented, casually dressed and appropriately groomed. Eye contact good. Motor activity appropriate. Speech within normal limits. Affect congruent, mood euthymic, anxious. Thoughts linear, logical, no signs of hallucinations or delusions.] Client Response/Progress/Benefit: [Client responded well to session, active participant and willing to engage. Client worked with the group to complete the challenge activity and shared that encouragement and assistance from fellow participants helped to accomplish the activity. Client completed the fear of failure worksheet and reported that fear of failure is keeping her from living life to it?s fullest potential and improving his mental health. Reported barriers for overcoming fear of failure are past experiences, poor boundaries, high expectations, absolute thinking, trouble with understanding other?s point of view. Client shared he has been able to learn from setbacks in the past and the positive thing past failures have taught him what he does not want for his life. Client selected a goal to help overcome fear of failure. Client?s goal is to remind himself ?my past does not dictate my present or future?. Client appeared to benefit from gaining awareness and setting a goal to reduce fear of failure. Client showing progress in increasing insight and improving use of healthy coping skills. Pt recommended continued IOP tx to improve healthy change behaviors, decrease depression, and increase application of skills learned.] Narrative Note: []
--- NOTE | 2019-03-17 13:21 | PCM.BH.PN_ITS ---
Progress Note Progress Note: History of Present Illness/Interim History: [] Patient is a 28-year-old male who is seen in follow-up at the [facility] program. I last saw him about 10 days ago and he has a history of bipolar 2 disorder and attention deficit disorder. At last appointment I had given him a prescription for Latuda 20 mg daily with meals. The patient says he only took Latuda 1 time and stopped it because it made him feel jittery and increased his anxiety. So he never took his Latuda after 1 dose. He states that giving was a hard time for him due to the fact that he still missing his son. He is now doing grief counseling along with the [facility] program and he says this is been very helpful. His mood he says is not not depressed very much now. He feels that his occasional waves of feeling sad or better explained by grief at this point. He denies any suicidal or homicidal ideation. He denies any passive thoughts that he wound care if he . Current Psychiatric Medications: [] Lamictal 150 mg p.o. nightly; Vyvanse 70 mg p.o. every morning; Latuda 20 mg p.o. with meals (only took 1 dose and never really started). Mental Status Examination: [] Patient is a 28-year-old male who appears normal for stated age. He is casually dressed and groomed with good hygiene. He is cooperative during the interview with no psychomotor agitation or retardation. He has good eye contact. His mood is euthymic today. His affect is full and normal. Thought process: Goal-directed and organized. Thought content: No evidence of suicidal or homicidal ideation. No evidence of hallucinations or delusions. Concentration is intact. Impulsivity low. Insight: Improving. Judgment: Intact. Diagnoses: [] Cotulla I: [] Polar 2 disorder; ADHD; generalized anxiety disorder; history of alcohol use disorder in full remission for 3 years Cotulla II: [] For Cotulla III: [] GERD Cotulla IV:[]] Very support, housing, financial issues Plan: [] Patient will continue the program but he will be stepdown to [facility] today from [facility]. He will continue the program as the structure, support, education, group and individual therapy will prevent worsening of his symptoms. The risks, options, possible side effects and complications of the medications were discussed with the patient and he understands and accepts these. He is offered an increase of his Lamictal to help stabilize his mood disorder however at this time he does not want to make any changes in his medication. He wants to cont inue his IOP program and his grief counseling. If he does not feel safe he agrees that he will go to the emergency room or tell 1 of his providers. He did feel safe today during the interview.
--- NOTE | 2019-03-17 13:27 | BH.DR.ITP ---
Initial Treatment Plan - Patient Information Visit Information: ADMISSION DATE: EXPECTED LOS: 4-6 weeks - Problems/Symptoms Problem #1:: Depression Symptom:: sadness, rumination, unable to function well Problem #2:: Anxiety Symptom:: worry, rumination
--- NOTE | 2019-03-17 13:49 | BH.MTP ---
Master Treatment Plan - Patient Information Program Physician:: Dr. Mecca Ng Primary Therapist:: BRYN Oquendo - Psychiatric Diagnoses Psychiatric Diagnoses:: Bipolar 2 disorder (F 31.81); ADHD; generalized anxiety disorder; history of alcohol use disorder in full remission for 3 years. Diagnosis Code(s):: F31.81 - Estimated LOS Estimated LOS (in weeks):: 6 Problem/Goal #1 - Problem/Goal #1 Stated Goal:: Client will reduce depression, feelings of hopelessness, and suicidal ideation due to Major Depressive Disorder through Intensive Outpatient Program. Description of Barriers: Client reports history of trauma and difficulties in managing emotions that continues to impact client. Reports from a young age he has learned to suppress his feelings until point of crisis which often results in anger outbursts via verbal outbursts, property damage, and arguments with supports. Client reports his relationship with his has been strained as a result of poor emotion regulation and that they are currently as a result. Indicated that the recent loss of a child to SIDs has had significant impact on his mental health and relationships with supports. Pt reports he is currently living with his mother and stepfather which has been a stressor as he is unable to spend as much time with his children and is commuting further to work. Reports hx of problematic drinking behaviors but has not engaged in such behaviors since prior to [facility] admission. Current stressors including; financial stress, lack of social support, family stress, hx of impulsivity, feelings of hopelessness, worthlessness, difficulties managing his emotions, and lack of concentration. Sx were exacerbated by pt going to his son?s grave site for the first time and increased tension in the relationship with his leading to increased emotional instability and more frequent passive thoughts of which led to [facility] admission. No longer reporting SI. Client reports ongoing difficulties awareness of warning signs and triggers. Client endorses numerous distorted thoughts that reinforce mental health symptoms and cause interpersonal relationship issues. Functional Impact: Due to recent grief related trauma trigger resulting in decompensation of mental health symptoms, increased depression, self-deprecating thoughts, increased urges to engage in high risk behaviors such as problematic drinking, concerns for safety presented by pt supports, as well as self-reported resurgence of passive thoughts of without specific plan or intent, it was determined that client would benefit from more intensive treatment via Partial Hospitalization to maintain safety, increase emotional stability, and prevent need for higher level of care. Client additionally went on FMLA from work beginning 03/03/19, as well as begin outpatient grief counseling starting 03/08/19. Client will begin IOP program on this date as he has made strides in PhP and displaying increased ability to function at baseline as well as no longer reports SI. Continues to report anxiety about returning to work, relationship issues, and difficulties managing emotions. Goal Relevant Strengths/Supports: Client presents as a kind, intelligent, and motivated to improve his ability to understand and manage intense emotions. Client has shown ability to bounce back from adversity in the past which presents as a protective factor for treatment. Client has strong family support from his parents. Client has been in mental health treatment before and reported it was helpful but that he was not motivated to apply skills learned at the time however feels more motivated to do so now. - Objectives Objective #1 Stated Objective: Pt will decrease depressive symptoms AEB pt?s score on the DSM 5 cross-cutting measure and improve pt?s daily functioning. Interventions: Through groups and individual therapy, pt will be provided with education on cognitive distortions, mistaken beliefs, and identifying and combating negative self-talk. Therapist will assist pt with getting back into the activities she once enjoyed as well as increasing healthy coping strategies. Discharge Criteria: Pt will have met this goal when pt?s score on the DSM 5 cross cutting measure for depression has been decreased and per pt?s report daily functioning has improved. Target Date: 04/21/19 Review Date: 04/14/19 Objective #2 Stated Objective: Client will learn and utilize 2-3 healthy coping strategies to manage depressive symptoms. Interventions: Therapist will assist client in learning internal coping strategies to manage depressive symptoms, along with helping client identify triggers. Discharge Criteria: Client will have achieved this goal when can verbalize and has practiced at least 2 healthy coping strategies. Target Date: 04/21/19 Review Date: 04/14/19 Problem/Goal #2 - Problem/Goal #2 Stated Goal:: Client will improve anxiety regulation and mood management and reduce impulsive behaviors, feelings of hopelessness, and anger outbursts due to Bipolar Disorder through Intensive Outpatient Program. Description of Barriers: Client reports history of trauma and difficulties in managing emotions that continues to impact client. Reports from a young age he has learned to suppress his feelings until point of crisis which often results in anger outbursts via verbal outbursts, property damage, and arguments with supports. Client reports his relationship with his has been strained as a result of poor emotion regulation and that they are currently as a result. Indicated that the recent loss of a child to SIDs has had significant impact on his mental health and relationships with supports. Pt reports he is currently living with his mother and stepfather which has been a stressor as he is unable to spend as much time with his children and is commuting further to work. Reports hx of problematic drinking behaviors but has not engaged in such behaviors since prior to IOP admission. Current stressors including; financial stress, lack of social support, family stress, hx of impulsivity, feelings of hopelessness, worthlessness, difficulties managing his emotions, and lack of concentration. Sx were exacerbated by pt going to his son?s grave site for the first time and increased tension in the relationship with his leading to increased emotional instability and more frequent passive thoughts of which led to [facility] admission. No longer reporting SI. Client reports ongoing difficulties awareness of warning signs and triggers. Client endorses numerous distorted thoughts that reinforce mental health symptoms and cause interpersonal relationship issues. Functional Impact: Due to recent grief related trauma trigger resulting in decompensation of mental health symptoms, increased depression, self-deprecating thoughts, increased urges to engage in high risk behaviors such as problematic drinking, concerns for safety presented by pt supports, as well as self-reported resurgence of passive thoughts of without specific plan or intent, it was determined that client would benefit from more intensive treatment via Partial Hospitalization to maintain safety, increase emotional stability, and prevent need for higher level of care. Client additionally went on FMLA from work beginning 03/03/19, as well as begin outpatient grief counseling starting 03/08/19. Client will begin IOP program on this date as he has made strides in PhP and displaying increased ability to function at baseline as well as no longer reports SI. Continues to report anxiety about returning to work, relationship issues, and difficulties managing emotions. Goal Relevant Strengths/Supports: Client presents as a kind, intelligent, and motivated to improve his ability to understand and manage intense emotions. Client has shown ability to bounce back from adversity in the past which presents as a protective factor for treatment. Client has strong family support from his parents. Client has been in mental health treatment before and reported it was helpful but that he was not motivated to apply skills learned at the time however feels more motivated to do so now. - Objectives Objective #1 Stated Objective: Client will manage moments of increased stress and anxiety by learning to identify 2-3 warning signs and triggers for when becoming overwhelmed and implement 2-3 calming skills and problem solving strategies to realistically addressing worries. Interventions: Therapist will encourage client to use self-awareness strategies and assist client in identifying times of day, or specific thinking patterns indicating potential warning signs/triggers for increased anxiety. Therapist will teach client problem-solving strategies involving defining a problem, brainstorming solutions, selecting and implementing various solutions as well as calming interventions for reducing anxiety. Discharge Criteria: Client will have met this goal when can identify at least 2 warning signs and 2 triggers for increased stress and anxiety. When recognizing warning signs pt will be able to implement 2-3 problem solving and calming strategies for reducing anxiety and realisticly addressing worries. Target Date: 04/21/19 Review Date: 04/14/19
--- NOTE | 2019-03-17 15:38 | BH.MDN_ITS ---
Multi-Disciplinary Note - Note 30-min Individual Time Started:: 12:28 Date: 03/17/19 Purpose of session/treatment goals addressed:: Purpose of this session was to assess current symptoms, stressors, and progress towards treatment goals. Another purpose was to discuss pt ambivalence to return to work. Additional topics included: communication with supports. Eye Contact:: Good Motor Activity:: Appropriate Appearance:: Casual Speech:: Appropriate Mood:: Euthymic Affect:: Congruent Thoughts:: Linear, Logical, No evidence of hallucinations/delusions noted Staff Interventions:: Therapist asked open-ended and furthering questions to elicit additional information regarding pt current symptoms, stressors, and treatment goal progress. Provided feedback and encouragement as pt discussed emotions associated with ongoing stressors. Therapist utilized CT techniques to elicit change behaviors and assisted pt in completion of decisional balance exercise for return to work. Client Response:: Pt receptive of session, engaged throughout and openly discussed thoughts on progress and areas of continued difficulties. Pt indicated that he feels he is doing well to increase willingness to reach out to supports and expand his support network beyond his and mother. Pt proudly discussed reaching out to two of his friends following the illumination ceremony he attended at [facility] in honor of his son. He shared knowing that the ceremony had been a meaningful experience and he is glad to have attended it, but that it was ?heavy? and he knew if he went home he would isolate and was more likely to ruminate on thoughts of his son not being there. Pt shared feeling increasingly confident in his ability to foster independence and is feeling increasingly confident supporting himself without having to rely on his . Pt shared this continues to be a struggle at times and that he struggles at times with the unknown aspects of the relationship. Noted reaching out to his to invite her to the illumination ceremony and explained, ?I did it because I wanted us both to be there for my son?s memory, not because I felt like I needed to have her there to get through it?. This is indicative of progress as pt has struggled significantly with relying on external supports rather than using his own internal coping skills. Pt went on to discuss wanting to work on preparing himself to return to work as he is beginning to become anxious about finances, as well as struggling to find ways to fill the time he would normally be working. Pt discussed that although he is antsy to get back to working, he is unsure if returning to his current position is the best option or if her should look for work elsewhere. Went on to discuss concerns about being triggered in the environment and fear it will continue to set him back in terms of mental health progress by bringing up his past trauma. Pt did well to work with this therapist on completing decisional balance sheet exploring pros and cons of staying at current position versus finding a new job. Willing to further reflect upon this over the next week and reassess in session on Friday. Risks/Concerns:: Pt denies active SI, plan, or intent as of this date, 03/17/19. Progress Toward Goals/Plan:: Progress noted. Continues to work on slowly improving boundaries with his and challenging unrealistic expectations related to the marriage. Pt reports that his overall self-esteem and confidence levels have improved since beginning grief counseling, setting firmer boundaries with , and improving ability to act more independently. Continued difficulties in consistent thought challenging and mood management as pt continues to report struggling with unrealistically high expectations of himself and others. Will continue IOP level of tx to maintain stability, improve mental health sx management, and increased application of emotion regulation skills. Time Stopped:: 12:56
--- NOTE | 2019-03-19 09:03 | BH.SGPN.GN ---
Behaviors/Verbalizations/Mental Status: [Eye contact is good. Motor activity is appropriate. Appearance is casual, grooming good. Speech is Appropriate rate and tone. Mood is euthymic, positive. Affect is congruent. Thoughts are linear and logical. No evidence of psychosis. Reviewed daily check in sheet and pt denies any active SI, plan, or intent.] Client Response/Progress/Benefit: [Pt responded well to session, engaged throughout and open to processing with the group. Pt indicated current emotion as ?giddy? and discussed that this is due to feeling increasingly connected to others and able to be in the present moment. Pt able to identify mental health wins which included spending time with his kids over the past few days, while also being sure to set aside time to relax and take time for himself. Additional win noted as being able to successfully complete small goal of cleaning up his house as a means for grounding when finding himself struggle with ruminating. Receptive of feedback provided by group and appearing to benefit from support and structure of group environment. Pt progress in self report of increasing use of self-care and mindfulness. Pt recommended continued IOP tx to prevent decompensation, and promote ongoing application of healthy coping skills, and maintain stability.] Narrative Note: []
--- NOTE | 2019-03-19 10:30 | BH.SGPN.GN ---
Behaviors/Verbalizations/Mental Status: []Pt alert and oriented, eye contact good, casually dressed, motor activity appropriate, speech normal rate and tone, mood euthymic, congruent affect, thoughts linear and intact, no evidence of delusions or hallucinations. Client Response/Progress/Benefit: []Client engaged participant as shown by client?s contribution to discussion and helpful insight. Client participated in the discussion of the common myths about self-care including self-care is selfish, easy, makes us weak, and always fun. Client worked with group to debunk the myths about self-care. Client stated he believes self-care is essential in order fo fully function. Client seemed to benefit from increased awareness of the importance of self-care. Client showing progress as shown by continued use of healthy skills and setting boundaries with others. Will continue tx to identify and challenge distorted thoughts, increase healthy coping skills, and prevent decompensation. Narrative Note: []
--- NOTE | 2019-03-19 11:30 | BH.SGPN.GN ---
Behaviors/Verbalizations/Mental Status: []Client alert and oriented, neatly dressed and groomed. Eye contact good. Motor activity appropriate. Speech within normal limits. Affect constricted, mood euthymic. Thoughts linear, logical, no signs of hallucinations or delusions. Client Response/Progress/Benefit: []Client receptive of session, actively listening and actively participating. Willing to complete worksheet activity. Participated as the group further processed the activity and connected with the importance of self-care in maintaining mental health and promoting balance. Client completed self-assessment activity on the different areas of self-care and was able to identify current practices he uses and identify areas he can improve upon. Client reported he can improve his social self-care. Client set a goal to improve in the area of social self-care. Client?s goal is to stick with the plans he makes and to try and make new friends. Client also would like to improve his balance of social support, by not relying on his external supports more than his internal coping skills. Client shared this would benefit client because he wants to continue to grow in trusting his coping skills and asking for help. Client appeared to benefit from increasing awareness of how he can improve his self-care balance. Progress noted as client?s symptoms of depression have decreased and he reports generalization of coping skills. Will continue IOP tx to increase emotional regulation skills and improve daily functioning. Narrative Note: []
--- NOTE | 2019-03-23 09:10 | BH.SGPN.GN ---
Behaviors/Verbalizations/Mental Status: [] Eye contact is good. Motor activity is appropriate. Appearance is casual. Speech is Appropriate. Mood is anxious/irritable. Affect is congruent. Thoughts are linear and logical. No evidence of psychosis. Reviewed daily check in sheet and no reports of suicidal thoughts or intent. Client Response/Progress/Benefit: [] Pt was an active participant in group discussion. Emotion for today is nervous. Daily symptom tracker notes 3/5 for anxiety, panic, and agitation. Notes 2/5 for hopelessness. Reports poor sleep last night. Immediately began to discuss his frustrations with his regarding a couple events that occurred yesterday. Notes short temper and admits to poor communication at times. Insight that his grieving is related to his increased irritability and difficulty managing emotions. Anxious about family sessions this afternoon. Is seeking more definite answers regarding the future of his relationship. Group provided encouragement, support, and feedback. Will continue in IOP to prevent decompensation, stabilize mood, and increase healthy coping strategies. Narrative Note: []
--- NOTE | 2019-03-23 15:25 | BH.MDN_ITS ---
Multi-Disciplinary Note - Note Family Time Started:: 13:00 Date: 03/23/19 Purpose of session/treatment goals addressed:: Purpose of this session was to meet with pt and his as the uncertainty of the relationship has been a huge stressor and continued to impact progress in treatment. Pt and his have requested session to identify expectations, boundaries, and improve effective communication Eye Contact:: Good Motor Activity:: Appropriate Appearance:: Casual Speech:: Appropriate, Soft Mood:: Anxious, Dysthymic Affect:: Congruent Thoughts:: Linear, Logical, No evidence of hallucinations/delusions noted Staff Interventions:: Therapist asked open ended and furthering questions to elicit information regarding expectations and goals for session. Gave supportive feedback and support as pt and his discussed concerns impacting the relatio nship and their ability to communicate effectively with one another. Provided education on healthy boundaries and effective communication strategies. Facilitated discussion assisting pt and his in identifying concrete boundaries for the relationship. Client Response:: Therapist met with pt and his to discuss how confusion regarding the relationship is impacting pt ability to make progress on mental health treatment goals. Pt and his have been for several months following the loss of their youngest child in June. Despite separation, pt and his continue to remain in contact daily and often spend time with their other two children together. Pt discussed that uncertainty regarding the relationship has impacted his expectations of his as a support, led to resentment, and increased struggles in working on building internal coping skills and developing more independence. Pt and his discussed expectations of relationship moving forward and both agreed that they should end the marriage and instead work on improving their own mental health separately as they continue to grieve, and begin working on developing a healthy friendship in order to better co-parent. Therapist guided pt and his in identifying what this might look like for them and begin establishing healthy boundaries for the relationship. Addressed pt reports of difficulties with experiencing resentment towards his still having the dog, custody of the kids, and the house. Aided pt in reframing perspective to look at what he has been able to achieve and areas he is improving in rather than focusing on what he has lost. Additionally, discussed strategies for improving communication as both pt and his identified that their current communication is often unclear and often times unhealthy. Reviewed expectations of their current relationship moving forward and agreed that they could continue to communicate, however that they should minimize amount of time spent together. Pt was agreeable and provided some suggestions she could do to help improve their communication and increase mutual trust. Risks/Concerns:: No risks or concerns noted as of this date 03/23/19. Progress Toward Goals/Plan:: Progress noted. Expectations were made clear regarding current and future relationship. Some closure and both worked together to begin establishing healthy boundaries and identifying effective means for communication. Pt will continue in IOP to maintain safety, prevent decompensation, and to improve functioning to return to work. Time Stopped:: 14:15
--- NOTE | 2019-03-24 10:15 | BH.SGPN.GN ---
Addendum entered and electronically signed by Sheridan Woods 04/28/19 11:50: Date error. Should be 03/23/19 Original Note: Behaviors/Verbalizations/Mental Status: []Client alert and oriented, neatly dressed and groomed. Eye contact good. Motor activity appropriate. Speech within normal limits. Affect congruent, mood anxious. Thoughts linear, logical, no signs of hallucinations or delusions. Client Response/Progress/Benefit: []Client responded well to session, attentive and engaged throughout. Participated in the group discussion to define and identify differences between internal and external conflict. Client reported ?to get to peace you need conflict.? Client shared for him he needed to face his internal conflicts in order to start getting better. Group reported the benefits of addressing conflict included improved relationships, feeling empowered, and better mental health. Group identified and discussed consequences of not addressing conflict in healthy ways which included: guilt, suicidal ideations, fear and anxiety, and relationship problems. Client agreed with peers that avoiding conflict only causes more problems. Participating during psychoeducation on different conflict styles such as avoiding, accommodating, competing, and collaborative. Benefited as he was able to identify and define conflict as well as increase awareness of how conflict style impacts mental health. Will continue IOP tx to promote the use of healthy coping skills and to improve daily functioning. Narrative Note: []
--- NOTE | 2019-03-24 11:15 | BH.SGPN.GN ---
Addendum entered and electronically signed by Sheridan Woods 04/28/19 11:50: Date error. Should be 03/23/19. Original Note: Behaviors/Verbalizations/Mental Status: []Client alert and oriented, casually dressed and groomed. Eye contact good. Motor activity appropriate. Speech within normal limits. Affect constricted, mood anxious. Thoughts linear, logical, no signs of hallucinations or delusions. Client Response/Progress/Benefit: []Client responded well to session, providing to discussion and activity. Contributed to ongoing discussion of the different conflict resolution styles, drawbacks, and appropriate times of use. Client indicated connecting most with the ?avoiding? approach currently when dealing with conflict.? Client reported he used to be competing, but he has been shutting down lately, especially with his . Client recognizes that being avoiding only makes him feel more frustrated and unheard. Client stated he wants to become more accommodating and do a better job of listening. Client engaged in the activity and did well to practice active listening. Client attentive during psychoeducation on different conflict resolution strategies. Client selected the strategy of listening before responding as the conflict resolution skill he wants to improve unpon this week. Client appeared to benefit from increasing awareness of his personal conflict resolution style and from learning ways to increase healthy conflict resolution. Progress noted as client cotninues to report application of coping skills, but he can continue to benefit from IOP level of care to further decrease symptoms. Narrative Note: []
--- NOTE | 2019-03-25 09:00 | BH.SGPN.GN ---
Behaviors/Verbalizations/Mental Status: [] Eye contact is good. Motor activity is appropriate. Appearance is disheveled. Speech is Appropriate. Mood is depressed. Affect is flat. Thoughts are linear and logical. No evidence of psychosis. Reviewed daily check in sheet and no reports of suicidal ideations or intent. Client Response/Progress/Benefit: [] Pt was an active participant in group discussion. Emotion for today is making it through. Identified some mental health wins as learning a new skill and making a new friend. Struggled to make it out of bed today stating Its been a rough week ... I'm depressed. States that it has been stressful and overwhelming with fighting alt the changes in his life. Recently has discussion with and they have decided to separate and decrease communication. While it has been a struggle with his mental health due to recent stressors he states i haven't given up. Benefited from group support and encouragement. Will continue in IOP to prevent decompensation, improve daily functioning, transition back to work. Narrative Note: []
--- NOTE | 2019-03-25 10:13 | BH.SGPN.GN ---
Behaviors/Verbalizations/Mental Status: [Client alert and oriented, casually dressed and appropriately groomed. Eye contact good. Motor activity appropriate. Speech within normal limits. Affect congruent, mood dysthymic. Thoughts linear, logical, no signs of hallucinations or delusions. ] Client Response/Progress/Benefit: [Client was an active participant in group activity and provided positive input to discussion as well as encouragement to peers. He connected with the topic of obstacles and solutions and worked with group to identify common internal and external barriers that could prevent progress towards desired reality. Identified potential internal barriers as: difficulties with change, desire to control uncontrollables, and isolation. Client shared his current reality is ?walking down a path with constant holes. Behind him are the holes he has moved past and ahead of him is still another hole?. Pt shared that he knows he can do it but that he has been struggling with feeling tired of having to fight to move past the holes. Shared he is confused. Client shared a realistic, desired reality would be feeling able to use coping skills to get past the holes more easily. Noted knowing doing so will aid in improving self-confidence. Benefited from group as client was able to identify impact of internal barriers on current mental health state and ability to make progress. Will continue IOP to prevent decompensation and improve self-esteem, as well as reduce depression.] Narrative Note: []
--- NOTE | 2019-03-25 11:15 | BH.SGPN.GN ---
Behaviors/Verbalizations/Mental Status: []Client alert and oriented, casually dressed and groomed. Eye contact good. Motor activity appropriate. Speech within normal limits. Affect constricted, mood dysthymic. Thoughts linear, logical, no signs of hallucinations or delusions. Client Response/Progress/Benefit: []Client was an active participant in group discussion and activity. Able to identify fear of the unknown, negative thinking, and the urge to isoate and avoid as obstacles which are preventing client from achieving client?s desired reality. However, client was able to identify personal resilience factors that can help client overcome these barriers. Client?s personal resilience factors included; understanding his hardwork will pay off, herbie and hope, and using self-compassion. Active during activity and providing ideas on how to cope with internal barriers. Client along with peers identified various obstacles during the activity and developed strategies to overcome those obstacles to wellness and desired reality. Client selected wanting to work on the barrier of fearing the unknown and wants to do so by using mindfulness. Benefited from group by identifying obstacles and solutions to desired reality. Will continue IOP tx to increase mood stability and increase emotional regulation skills. Narrative Note: []
--- NOTE | 2019-03-26 09:03 | BH.SGPN.GN ---
Behaviors/Verbalizations/Mental Status: []Client alert and oriented, neatly dressed and groomed. Eye contact good. Motor activity appropriate. Speech rambling at times. Affect congruent, mood tired, anxious. Thoughts linear, logical, no signs of hallucinations or delusions. Reviewed client?s symptom tracker, no risk for suicidal ideation, plan, or intent as of 03/26/19. Client Response/Progress/Benefit: []Client responded well to session, receptive to peers and providing feedback to others. Client reports feeling ?mentally drained? today. Client ongoing to experience grief and relationship issues which has caused increased depression and anxiety in recent days. Client stated ?I really wanted to isolate last night because emotions were high, but I didn?t.? Client reported instead of isolating, he cleaned his room and spent time with his step-brother and a friend. Client also went to dinner with some friends from work and received support from his coworkers about client?s mental health. Client shared it made him feel good to receive positive encouragement from his coworkers ?they told me I was brave for getting help.? Appeared to benefit from reflecting on his application of healthy coping skills which helped client prevent worsening depressive symptoms. Progress noted in client?s consistent generalization of healthy coping skills, but he continues to struggle with depression and grief. Will continue IOP level of care to prevent decompensation and increase daily functioning. Narrative Note: []
--- NOTE | 2019-03-26 13:54 | BH.MDN ---
Multi-Disciplinary Note - Note 45-min Individual Time Started:: 11:35 Date: 03/26/19 Purpose of session/treatment goals addressed:: Purpose of this session was to assess current symptoms, stressors, and treatment goal progress. Another purpose was to aid pt in processing and identifying strategies to cope with transitioning out of his marriage. Eye Contact:: Good Motor Activity:: Appropriate Appearance:: Casual Speech:: Appropriate Mood:: Dysthymic Affect:: Congruent Thoughts:: Linear, Logical, No evidence of hallucinations/delusions noted Staff Interventions:: Therapist asked open-ended and furthering questions to elicit additional information regarding pt current symptoms, stressors, and treatment goal progress. Provided feedback and encouragement as pt discussed emotions associated with finding closure and adjusting to end of his marriage. Therapist utilized MD techniques to elicit change behaviors and assisted pt in challenging distortions. Client Response:: Pt receptive of session, engaged throughout. He discussed that although the session with his had been hard, he is glad that it happened. Indicated feeling a sense of relief now that it is over and he has more clarity for what to think about in regard to his future. Discussed he is sad that the marriage is ending but has realized that this is the best decision for both himself and his . Pt described struggling Friday night after session but was able to challenge thoughts of ?this isn?t fair, I?m finally making progress and now I don?t get a chance to try and make it up?. Shared that when he has these thoughts he tries reminding himself to use radical acceptance and remember that ?I can?t control her decisions, all I can do is control how I respond and if I let this keep me stuck or continue to move forward?. Pt additionally noted that he has been struggling not to worry about whether his is taking care of her own mental health and fears she will make unhealthy decisions. Because she continues to ignore her grief. Pt able to work with therapist on maintaining healthy boundaries with himself regarding reminding himself that he can be a support without taking on her problems as his own. Discussed wanting to begin working more intentionally on planning for his own future and discussed feeling ready to return to work next Friday and will work to create a concreate return to work coping plan with therapist in next session. Risks/Concerns:: No risks or concerns noted. Pt denies any current SI, plan, or intent as of 03/26/19. Progress Toward Goals/Plan:: Progress noted. Pt continues to report improved ability to manage his emotions and take time to calm himself and process prior to reacting to stressors. Mood can continue to be erratic at times and pt has ongoing difficulties with consistent emotion regulation; however, is actively working to improve in this area. Indicated establishing firmer boundaries and reports his thoughts, mood, and actions are becoming less dependent on his ex and her current engagement or communication with him. Reports ongoing grief therapy and improving in ability to cope with related triggers. Pt reports readiness to return to work next week, 04/02/19. Functions better during weeks with increased distractions and when spending time with his sons. Plan is to continue with IOP to maintain gains and transition back to work. Time Stopped:: 12:15
--- NOTE | 2019-03-29 09:05 | BH.SGPN.GN ---
Behaviors/Verbalizations/Mental Status: [] Eye contact is good. Motor activity is appropriate. Appearance is casual. Speech is Appropriate. Mood is depressed. Affect is flat. Thoughts are linear and logical. No evidence of psychosis. Reviewed daily check in sheet and no reports of suicidal ideations or intent. Client Response/Progress/Benefit: [] Pt was an active participant in group discussion. Emotion for today is lethargic. Shared some events that occurred over the weekend. Notes that he used thought-stopping, mindfulness, and other skills on a fairly consistent basis and was happy with the outcomes. Stated I lived in the present and did not ruminate on negatives that I could not control. Daily symptom tracker notes 3/5 for anxiety and 2/5 for panic and agitation. Notes feeling lethargic however feels this might be due to illness rather than mental health as he notes progress. Benefited from group feedback, encouragement, and support. Will continue in IOP to prevent decompensation, stabilize mood, and increase healthy coping. Narrative Note: []
--- NOTE | 2019-03-29 10:13 | BH.SGPN.GN ---
Behaviors/Verbalizations/Mental Status: [Client alert and oriented, casually dressed and groomed. Eye contact good. Motor activity appropriate. Speech within normal limits. Affect congruent, mood dysthymic. Thoughts linear, logical, no signs of hallucinations or delusions. ] Client Response/Progress/Benefit: [Client was engaged throughout, able to remain attentive during discussion of the quote and expressed ?I think every step you take is a choice. It isn?t going to be perfect, but it is what you choice to make it?. Noted that this insight is what has most helped him make progress in his own mental health tx. Group worked together to identify barriers that keep one from choosing a new and healthier path to mental wellness which included; unhealthy habits, fear of failure, fear of the unknown, apathy, procrastination, lack of awareness, and negative thinking. Attentive during psychoeducation on the chapters of life, providing limited insight to distinguishing factors in each chapter. Benefited from increased awareness and education on barriers to choosing new wellness paths and chapters of life. Progress noted in pt report of improved use of internal coping skills and increased application of tx materials outside of tx environment. Will continue IOP tx to further promote mood stability, promote healthy coping, while improving client?s ability to function at baseline. ] Narrative Note: []
--- NOTE | 2019-03-29 10:15 | BH.SGPN.GN ---
Behaviors/Verbalizations/Mental Status: [Client alert and oriented, casually dressed and appropriately groomed. Eye contact fair to good. Motor activity appropriate. Speech within normal limits. Affect congruent, mood dysthymic. Thoughts linear, logical, no signs of hallucinations or delusions.] Client Response/Progress/Benefit: [Client an active participant in group. Providing input, actively listening, as well as taking notes throughout. Less verbal than previous sessions due to report of feeling ill. Indicated that realizing ?what I wanted wasn?t working, I needed to focus on what I need? was pivotal in his decision to seek mental health tx. Group worked together to identify barriers to making changes or taking action in their lives which included: fear of the unknown, fear of failure, comfort zone, denial of need to change, and lack of self-awareness. Group also identified the benefits of taking action which included; increased hope and confidence, improved mental health, no longer feeling ?stuck? or stagnant, and personal growth. Client identified personal areas he would like to take back control of to include: lack of understanding of others, negative self-esteem, not trusting others, and difficulty staying present. Shared noticing difficulties with lack of trust have impacted ability to sustain healthy relationships. Benefited from group through increased awareness of personal areas he wants to improve and benefits to taking action towards mental wellness. Progress noted in personal reflection of areas he would benefit from making changes for his mental health. Pt is recommended continued IOP level of care to improve mood stability, promote consistent application of healthy coping skills, and prevent decompensation.] Narrative Note: []
--- NOTE | 2019-03-29 11:20 | BH.SGPN.GN ---
Behaviors/Verbalizations/Mental Status: []Client alert and oriented, neatly dressed and groomed. Eye contact good. Motor activity appropriate. Less vocal than normal, reports not feeling well. Affect constricted, mood dysthymic. Thoughts linear, logical, no signs of hallucinations or delusions. Client Response/Progress/Benefit: []Client was an active participant AEB client participating in discussion and taking notes throughout session. Client attentive and contributing to discussion of the different zones of taking action as well as the pros and cons of each. Client agreed with peers that to grow and improve mental health, one must step out of their comfort zone, but not take on too much at once. Client completed worksheet in which he identified a problem area to focus on, a SMART goal to help work on problem area, and identify additional supports needed to be successful. Client identified he wants to reduce doubting to trust others. Client identified a small goal which is to think of two positive ways his current supports have helped in twice a day. Client stated additional supports needed to be successful with goal which included: seeking feedback from others and reminders. Appeared to benefit from creating a small goal to help client reduce doubting to trust others. Will continue IOP tx to promote use of healthy coping skills and improve emotional regulation skills. Narrative Note: []
--- NOTE | 2019-03-30 09:08 | BH.SGPN.GN ---
Behaviors/Verbalizations/Mental Status: []Client alert and oriented, casual dress, hygiene poor. Eye contact good. Motor activity appropriate. Speech within normal limits. Affect congruent, mood euthymic. Thoughts linear, logical, no signs of hallucinations or delusions. Reviewed client?s symptom tracker, no signs of suicidal ideation, plan, or intent as of today. Client Response/Progress/Benefit: []Pt was an engaged participant in group discussion, providing input and openly sharing thoughts with the group. Pt identified mental health positive as helping his by going to their house to let the dog out while she was sick. Pt stated in the past he would have questioned her as to why he has to do that, instead challenged his perspective recognizing it is good to help others. Pt additional mental health positive having increased awareness of his distorted thoughts with ability to challenge thoughts in the moment. Pt stated by challenging his perspectives he is able to get along better wit his . Pt reported current stressor is worried about getting his hopes up that his marriage will work out due to him spending more time with his recently. Progress noted with pt identifying and challenging negative and distorted thoughts in the moment. Continued IOP tx recommended to continue use of healthy coping skills, challenge distorted thoughts, and prevent decompensation. Narrative Note: []
--- NOTE | 2019-03-30 10:15 | BH.SGPN.GN ---
Behaviors/Verbalizations/Mental Status: []Client alert and oriented, neatly dressed and groomed. Eye contact good. Motor activity appropriate. Speech within normal limits. Affect congruent, mood euthymic. Thoughts linear, logical, no signs of hallucinations or delusions. Client Response/Progress/Benefit: []Client active participant during group AEB client contributing to discussion. Client reported it is important to have a variety of social supports and indicated that ?supports are people we lean on when we need a different perspective.? Client helped group brainstorm potential consequences of not having a support system and barriers to developing social supports, which included: feeling like a burden, poor communication, cognitive distortions, fear of rejection and judgement, being closed-minded, and being afraid to ask for help. Group identified benefits of social support as reminder to use healthy coping skills, positive reinforcement, constructive feedback, less anxiety, different perspective, less self-doubt, resources, and accountability. Client stated it is important to ?be your own biggest support too.? Client took an active role during the group activity and was providing positive encouragement as well as open to feedback from others. Appeared to benefit from gaining awareness of barriers that keep people from seeking social support as well as identifying the benefits of increasing support. Progress noted as client reports less depressive symptoms and applying healthy coping skills. Will continue IOP tx to promote mood stability and further improve daily functioning. Narrative Note: []
--- NOTE | 2019-03-30 11:15 | BH.SGPN.GN ---
Behaviors/Verbalizations/Mental Status: [Pt alert and oriented, eye contact good, casually dressed, motor activity appropriate, speech normal rate and tone, mood euthymic, congruent affect, thoughts linear and intact, no evidence of delusions or hallucinations.] Client Response/Progress/Benefit: [Client engaged and remained an active participant AEB client contributing to discussion, participating in activity, and listening to others. Client contributed to discussion about the different types of support and benefits different types of support can provide. Client worked with the group to identify strategies for improving development of new supports and better utilization of current supports. Client identified he would like to improve personal relationships by reaching out to different supports and opening up to them about how he is feeling. Client identified his first step is to identify additional supports he could utilize and work on increasing communication of his thoughts and emotions with these supports. Client seemed to benefit from identifying a type of support he would like to improve upon and creating actionable steps to promote follow-through. Client to continue IOP level of care to prevent decompensation, stabilize moods and utilize healthy coping skills.] Narrative Note: []
--- NOTE | 2019-03-31 16:08 | BH.MDN_ITS ---
Multi-Disciplinary Note - Note 30-min Individual Time Started:: 09:38 Date: 03/31/19 Purpose of session/treatment goals addressed:: Purpose of this session was to assess current symptoms, stressors, and treatment goal progress. Another purpose was to aid pt in completing a return to work plan, identifying strategies to cope with transitioning back to work. Eye Contact:: Good Motor Activity:: Appropriate Appearance:: Casual Speech:: Appropriate Mood:: Dysthymic, Other - sick Affect:: Congruent Thoughts:: Linear, Logical, No evidence of hallucinations/delusions noted Staff Interventions:: Therapist asked open-ended and furthering questions to elicit additional information regarding pt current symptoms, stressors, and treatment goal progress. Provided feedback and encouragement as pt discussed emotions and concerns related to return to work scheduled for next week. Therapist applied strengths based approaches to empower pt and increase his ability to identify coping skills he may use as he transitions back to work. Pt utilized CO techniques to elicit change behaviors. Client Response:: Client agree to meet for session and remained engaged throughout. He worked with this therapist to review progress while in IOP program and discussed feeling as though he has been able to successfully maintain progress in managing his emotions despite feeling under the weather. Noted that this is progress as in the past he has struggled with depression and irritability when feeling sick. Additionally, Pt noted insight that he would need to be more compassionate with himself over the next few days and remember that it is okay for him to spend time resting and relaxing as he recovers from being sick. Shared use of positive self-talk to combat feelings of guilt for not tending to other responsibilities. Noted ?I tried to fight it but it didn?t work. So, I just keep reminding myself that if I don?t take it easy I?m going to continue to feel like crap?. 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 Pt shared that he is less anxious to return to work after attending a holiday dinner with his coworkers as they were all understanding and supportive of Pt taking time off for his mental health. Pt able to identify importance of creating a return to work coping plan including warning signs/triggers, internal coping skills, supports, and positive self-talk statements for managing anxiety in the workplace. Identified that listening to music, speaking with his boss (Linda), and taking patel would be most beneficial. Additionally, discussed with therapist importance of continuing to engage in self-care activities outside of work in order to maintain stability as well. Risks/Concerns:: No risks or concerns noted. Pt denies any current SI, plan, or intent as of 03/31/19. Progress Toward Goals/Plan:: Progress noted. Pt expresses continued impr ovements in overall mood and is more confident in his ability to manage stressors and unexpected change without lashing out in anger or isolating. Additionally, noted readiness to return to work. He has maintained sobriety since beginning tx and regularly attends grief counseling. Notes improved ability to identify and challenge distorted thinking patterns and is maintaining healthier boundaries with supports, specifically his soon to be ex-. Decreased isolation and avoidance. Although put has made significant progress, he continues to struggle with consistency of healthy skill application and emotion regulation. Ongoing issues with low self-worth and relying primarily on external factors to cope. Pt to continue IOP tx to maintain stability, further promote application of healthy coping skills, and prevent decompensation. Time Stopped:: 10:03
--- NOTE | 2019-04-06 09:05 | BH.SGPN.GN ---
Behaviors/Verbalizations/Mental Status: [] Eye contact is good. Motor activity is appropriate. Appearance is casual. Speech is Appropriate. Mood is depressed. Affect is congruent. Thoughts are linear and logical. No evidence of psychosis. Reviewed daily check in sheet and no reports of suicidal ideations or intent. Client Response/Progress/Benefit: [] Pt was an active participant in group discussion. Emotion for today is feeling better. Shared that he returned to work yesterday and that overall it went well. States it was an emotional day. Some triggers at work which led to ruminating on the holidays, his children, and some desires to drink. He utilized skills and stayed in the present. Practicing radical acceptance and mindfulness which has helped decrease his irritability. Stated that he was able to enjoy time with his kids and was engaged and not focusing on the mess they were making or that they were decorating wrong. Group provided feedback on the progress that they have noticed in pt. Pt able to see progress regarding anger management and utilization of skills. Also able to identify that he is more confident in his ability to mange depression and grief. Will continue in IOP to prevent decompensation and transition back to work. Narrative Note: []
--- NOTE | 2019-04-09 07:01 | BH.AFTERPLAN ---
Aftercare Plan - Demographics Treatment End Date:: 04/09/19 Psychiatrist:: Mecca James Psychiatrist Office #:: [phone] PHP/IOP Therapist:: Francia Zamudio Therapist Phone #:: [phone] - Medications Home Medications: Home Medications Lisdexamfetamine Dimesylate [Vyvanse] 70 mg PO DAILY 03/06/16 cholecalciferol (vitamin D3) 1,000 unit capsule 1,000 unit PO QDAY 11/07/17 multivitamin 1 cap PO QAM 11/07/17 ranitidine HCl 150 mg tablet 150 mg PO BID tab 11/07/17 omeprazole 20 mg capsule,delayed release 20 mg PO DAILY #60 cap 05/06/18 sucralfate 1 gram tablet 1 g PO QACHS #120 tab 06/02/18 Lamotrigine [Lamictal] 150 mg PO DAILY 01/28/19 - Plan Details Progress/Aftercare Plan Details:: Woody has shown such great strides while in both the PHP and IOP programs. He has shown progress with implementing healthy coping skills to health better manage anger and depressive related symptoms. Woody has demonstrated consistency in using thought challenging, positive self-talk, reaching out to supports, knowing when to take a break, practicing radical acceptance, and opposite action. He has been working on asking himself ?Is this going to be helpful for me in the long run?? and ?Does the intensity of my emotion fit the situation?? which has helped him set boundaries, calm himself when becoming angry or overwhelmed, and better manage grief related triggers. Woody has been actively working to step out of his comfort zone and practice sitting with uncomfortable feelings. He reports less isolation and improved ability to regulate his emotions by using internal coping skill rather than relying solely on supports. Woody?s communication and relationship with his supports, specifically that of his , has improved as well. Woody has increased self-awareness of cognitive distortions, unhealthy coping behaviors that have kept him stuck in the past, and warning signs/triggers to look out for. Woody reports actively combating negative thoughts and has been making efforts to be identify ways he can remain more aware of the positives rather than focusing on negatives. Additionally, Woody has been able to return to work, engage in more independent activities, and reports looking forward to rediscovering who he is as an individual which demonstrates progress. Woody has made significant strides forward and is encouraged to continue individual counseling and psychiatric services. Great Work! Strategies for Success:: 1. SELF-AWARENESS and COMMUNICATION! These two things are STEPHENS! Continue to practice daily check-ins with yourself and your supports and pay attention to warning signs and triggers. Ask yourself what do I need right now to cope? Does the intensity of this emotion fit for the situation? 2. Challenge negative thoughts and continue to practice reframing the negatives into a more positive perspective. Ask yourself: What's the evidence against? Am I thinking in black and white? Is this something temporary that won?t matter later on? 3. Continue to practice daily self-care and continue to explore interests in order to better get to know yourself! Remember life is about balance! take time to check in with yourself. How are you doing in all areas of self-care? 4. SUPPORT! Internal support (coping skills) and external support (family, friends, counseling, etc.) Pay attention to isolation and continue to use the skills that have helped you not isolate. Practice OPPOSITE ACTION. 5. CONSISTENCY! Consistency with medication, coping skills, and routine! 6.Positive self-talk! Talk yourself through anxiety and moments of feeling out of control of the situation. This will help to combat escalating to point of crisis; examples include I've been able to do this before, I can make it through this, and this is not my problem ot worry about?I don?t have to take this on right now. 7. Review your binder! 8. set small goals and keep track of wins! 9. Keep meeting with your therapists to maintain progress! :) - Appointments Appointments/Referrals to Other Services:: 1. Follow up with Dr. Awad at [facility] for ongoing medication management. 3. Follow up with Lara at [facility], intake appointment scheduled for 04/22/19 @ 11am for ongoing individual therapy. 3. Continue with [facility] for grief counseling. 4. Consider starting to attend AA in the area for additional support.
--- NOTE | 2019-04-09 07:37 | BH.DS ---
Discharge Summary - Demographics Date of Admission:: 03/17/19 Discharge Date: 04/09/19 Presenting Problems at Admission:: Client is a 28-year-old male with a history of Bipolar, NOS, anxiety, anger management problems, and alcohol use disorder. Client was referred to [facility] by family due to worsening mood symptoms resulting in erratic behaviors, impulsiveness, and increased irritability over the past month. Due to intensity of mood symptoms, pt was ?kicked out of his house? following an argument with his on 01/17/19 and is now living with his parents. Additionally, at time of admission pt identified worsening mood symptoms in connection to ongoing grief following the loss of his son in June 2018 to SIDs. Reports hx of aime and depression, though denies any recent episodes. Reports increased reliance on alcohol as a means of coping but recognized this was beginning to become problematic and has been sober for several weeks. Client was admitted to [facility] on 03/17/19 following a gtrief trauma trigger which further exacerbated depressive symptoms and pt noted passive thoughts of . At time of admission endorsed a depressed mood, lack of energy, lack of concentration, lack of motivation, avoidance behaviors, emotional dysregulation, irritability and decreased sleep. Client's symptoms are interfering with his social, occupation, and familial functioning. Discharge Diagnoses:: Bipolar 2 disorder (F 31.81); ADHD; generalized anxiety disorder; history of alcohol use disorder in full remission for 3 years. Reason for Discharge:: Client has shown significant strides towards treatment goals as shown by his report of reduced duration and intensity of symptoms. Client no longer meets criteria for [facility] level of care. - Treatment Progress During Treatment & Response: Client responded well to treatment as shown by reduced DSM-5 scores for and overall positive contributions to group. Client was consistent in attendance and completion of therapy homework. Client started in [facility] following a recent grief related trauma trigger and made significant strides in increasing self-awareness, using coping skills, managing his emotions, and engaging in group. Client was an active participant in both individual and group sessions. He often took notes and reported referring back to them and discussing materials learned with supports frequently. In individual sessions, client was receptive to feedback, exploration of stressors, and working on developing a new coping skill repertoire. Client was consistent with homework and implementing healthy coping skills to manage his emotions and better set and maintain healthy boundaries. Client set small goals and worked to improve communication with his supports throughout IOP treatment. At admission, client reported symptoms of anxiety, anger, grief, and isolation that interfered with daily functioning. At discharge client reported reduced depression, improved ability to self-regulate and manage sx of irritability, and reduced isolation. Client?s DSM-5 score for depression reduced from at discharge. Client?s score for anger and irritability also decreased since admission. Overall sx reduction of 50%. Client self-reported increased confidence in coping with symptoms and more willingness to cope with the uncomfortable rather than avoid anxiety producing situations. Issues Still to be Addressed:: Client has shown progress towards treatment goals while in IOP as shown by reduced DSM-5 scores. However, client can continue to benefit from ongoing counseling to reinforce healthy coping skills such as thought challenging, self-talk, distress tolerance, radical acceptance, and opposite action. Client acknowledges that he continues to struggle with negative and guilt about past behaviors that at times reinforce anger, anxiety, and depression. Client would benefit from working on further combating and replacing negative thoughts and coping with his grief. Client was encouraged by therapist to begin AA in order to continue to aid in making healthy coping decisions. Client reported being receptive to this recommendation. Client can continue to increase social support and engagement in meaningful activities. Client can continue to work on emotion regulation skills and stress/anger management. Lastly, client can benefit from ongoing work on increasing self-esteem through boundary setting and assertive communication. Client is encouraged to continue working on these skills. Discharge Recommendations/Instructions:: 1. Follow up with Dr. Awad at [facility] for ongoing medication management. 3. Follow up with Lara at [facility], intake appointment scheduled for 04/22/19 @ 11am for ongoing individual therapy. 3. Continue with [facility] for grief counseling. 4. Consider starting to attend AA in the area for additional support. Discharge Handout: Complete Discharge Handout with client on aftercare options and continuity of care.
--- NOTE | 2019-04-09 09:00 | BH.SGPN.GN ---
Behaviors/Verbalizations/Mental Status: []Client alert and oriented, neatly dressed and groomed. Eye contact good. Motor activity appropriate. Speech within normal limits. Affect constricted, mood nervous. Thoughts linear, logical, no signs of hallucinations or delusions. Reviewed client?s symptom tracker, no risk for suicidal ideation, plan, or intent as of 04/09/19 Client Response/Progress/Benefit: []Client responded well to session, receptive to positive feedback and encouraging others. Client reports feeling ?nervous? today as it is his last day in [facility]. Client shared he is nervous to be leaving the support network he has made at [facility], but client recognizes that he has made ?a lot of progress.? Client shared some of his progress with the group which included; increased awareness, more patience, and being more emotionally flexible. Client has also learned how to better manage his grief and communicate his emotions. Client stated he is leaving [facility] 73 days sober and connected with more supports. Client reported the holidays were a trigger for him this year because he continues to grieve the loss of his son, but he was able to manage his grief in healthy ways. Client receptive to supportive feedback from therapist and peers. Will discharge from [facility] today as client has made significant strides in managing his mental health and no longer meets criteria for [facility] level of care. Narrative Note: []
--- NOTE | 2019-04-09 10:15 | BH.SGPN.GN ---
Behaviors/Verbalizations/Mental Status: [Client alert and oriented, casually dressed and groomed. Eye contact good. Motor activity appropriate. Speech within normal limits. Affect congruent, mood euthymic. Thoughts linear, logical, no signs of hallucinations or delusions. ] Client Response/Progress/Benefit: [Client was an actively engaged participant AEB providing input throughout session, taking notes, and was listening attentively to peers. The group discussed the quote and how the emotion anger is not good or bad, but one can respond to anger in healthy or harmful ways. Client contributed ideas as the group worked to define anger and its causes, as well as the internal and external impacts of anger. Defined anger as ?an overwhelming emotional response?. Group identified potential consequences of unhealthy management of anger to include: losing relationships, guilt, internalizing emotions, lashing out, and worsening mental health symptoms. Client identified underlying factors of his anger which included: depression, fear of change, fear of failure, fighting emotions, boredom, grief, overwhelmed, frustrated, and wanting to drink. Client indicated that getting ?snappy?, anxiety, change in tone, higher expectations, and isolation are common responses he has when feeling angry. Benefited from group by increasing awareness of the negative impacts of unmanaged anger and underlying factors that contribute to her personal anger. Progress noted given pt reports of reduced mental health sx, active engagement and skill application. Will discharge given progress and recommended continued outpatient counseling to maintain gains, continue to promote healthy change behaviors, and improve mood stability.] Narrative Note: []
--- NOTE | 2019-04-09 11:15 | BH.SGPN.GN ---
Behaviors/Verbalizations/Mental Status: []Client alert and oriented, casual dress, hygiene tended to. Eye contact good. Motor activity appropriate. Speech within normal limits. Affect congruent, mood euthymic, slightly anxious. Thoughts linear, logical, no signs of hallucinations or delusions. Client Response/Progress/Benefit: []Pt active participant throughout AEB engagement in both activity and discussion potions of session. Pt did well to challenge self to complete the group activity and incorporate anger management/emotion regulation skills in order to do so. Pt stated he recognizes improvement with his ability to manage his ager because last time he had this group he struggled with completing activity. Pt worked with the group to identify the various barriers faced in the activity as well as skills used to successfully complete the task at hand without becoming dysregulated or uncontrollably angry. Brainstormed with group healthy coping skills to help manage anger which included: listening to music, changing environment, breathing, coloring, walking, exercise, and petting an animal. He appeared to benefit from brainstorming with the group potential strategies to manage anger in healthy ways. Pt identified plans to begin changing his environment and checking-in with himself as two strategies to help manage his anger. Pt has made significant treatment progress and plan is for pt to discharge from [facility] today. Narrative Note: []
== END 2019-04-09 13:00 | disposition home or self-care (01) ==
LOC: BHIOP 09:00
PROVIDERS: Family Provider Family Medicine; PCP Family Medicine; Referring Provider Psychiatry & Neurology Psychiatry; Visit Provider Psychiatry & Neurology Psychiatry
DX: F31.81 Bipolar II disorder (principal); F90.9 Attention-deficit hyperactivity disorder, unspecified type; F41.1 Generalized anxiety disorder; F10.21 Alcohol dependence, in remission
CPT/HCPCS: H0035; 90832; 90834; 90847; 90853